=== PATIENT | female | born 1960 | race African-American/Black ===

== ENCOUNTER 2018-02-28 14:42 | Emergency (ER) | payer OTHER, SELFPAY ==
[2018-02-28 14:43] VITALS: BP 159/56; PULSE 79; RESP 18; TEMP 36.8; O2SAT 98; BMI 38.2
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
[2018-02-28] MEDS: HYDROcodone Bitartrate/Apap 5/325 Tablet PO (15:54)
[2018-02-28 15:57] VITALS: O2SAT 99
[2018-02-28 16:02] VITALS: BP 155/100; PULSE 87; RESP 16; O2SAT 100
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
[2018-02-28 17:02] VITALS: BP 134/62; PULSE 82; RESP 15; O2SAT 96
== END 2018-02-28 17:03 | disposition home or self-care (01) ==
PROVIDERS: Emergency Provider Emergency Medicine; Family Provider Student in an Organized Health Care Education/Training Program; PCP Student in an Organized Health Care Education/Training Program
DX: T14.8XXA Other injury of unspecified body region, initial encounter (principal); V89.2XXA Person injured in unspecified motor-vehicle accident, traffic, initial encounter; Y93.89 Activity, other specified; Y92.410 Unspecified street and highway as the place of occurrence of the external cause; I10 Essential (primary) hypertension; E78.00 Pure hypercholesterolemia, unspecified; E03.9 Hypothyroidism, unspecified; E11.9 Type 2 diabetes mellitus without complications; Z79.84 Long term (current) use of oral hypoglycemic drugs; Z79.899 Other long term (current) drug therapy
CPT/HCPCS: 71101; 73030; 73502; 99283

== ENCOUNTER → 2018-04-17 16:26 | Outpatient (CLI) | payer OTHER, SELFPAY ==
--- NOTE | 2018-04-16 | ASPS_PTH ---
PATIENT: RAKAN CHIN LOC: [facility] U#:[id number] AGE/SX: 65/F ROOM: RE04/17/[address]: Dr. Alison Chaves MD : [id number] BED: DIS: SPEC #: [id number] RECD: 04/17/18 10:55 STATUS: MAI REShanta #: [id number] CHEL: 04/16/18 00:[address]: Alison Chaves DEPT: CYTOLOGY RECD BY: Catracho Porter ENTERED: 04/23/18 10:56 SP TYPE: ASPIRATION OTHR DR: Dr. Christian Bowles, DO Tissues: Left breast, NOS Procedures: Special Stain Group II Surgery Specimen Level IV Cytology Other HEADER OPERATION: Ultrasound-guided fine needle aspiration of left breast lesion PRE-OP DIAGNOSIS: Abnormal mammogram/ultrasound TISSUE SUBMITTED: FNA left breast lesion DIAGNOSIS CYTOLOGY Left breast lesion, ultrasound-guided FNA (cytospin and cell block): Negative for malignant cells. Consistent with fibrocystic changes. SHAQ:christiano 04/23/18 COMMENT Correlation with clinical, radiologic findings and appropriate follow up are necessary. CYTOLOGY STUDY Slides are reviewed. The cell block is acellular. Cytospin smears entirely consist of apocrine metaplastic cells. CYTOLOGY GROSS Received is 40 ml of cloudy fluid labeled with the patient's name and and designated per the requisition as left breast FNA. Submitted for cytology preparation including cell block. 04/20/18 TC:5 CPT: 21293, 34397
== END ==
PROVIDERS: Family Provider Student in an Organized Health Care Education/Training Program; PCP Student in an Organized Health Care Education/Training Program; Visit Provider Surgery
DX: R92.8 Other abnormal and inconclusive findings on diagnostic imaging of breast (principal); N64.89 Other specified disorders of breast
CPT/HCPCS: 88161; 88305; 88313

== ENCOUNTER 2018-07-15 17:01 | Emergency (ER) | payer OTHER, SELFPAY ==
[2018-07-15 17:02] VITALS: BP 165/82; PULSE 78; RESP 16; TEMP 36.6; O2SAT 99; BMI 35.6
[2018-07-15 17:20] LABS: Bedside Glucose 407 mg/dL (70-110)
[2018-07-15] MEDS: Morphine 4 MG/ML Syringe IV (17:49)
[2018-07-15] MEDS: Ondansetron 4 MG/2 ML Vial IV (17:49)
[2018-07-15] MEDS: 0.9% Normal Saline 1,000 ML 999 ML IV (17:50)
[2018-07-15 17:57] LABS: Absolute Lymphocyte Count 3.28 X10^3/ul (0.83-4.51); Absolute Neutrophil Count 2.6 X10^3/uL (2.0-7.7); Basophil# 0.01 X10^3/uL; Basophil% 0.1 % (0-1); Eosinophil# 0.17 X10^3/uL; Eosinophils% 2.5 % (0-5); Hematocrit 39.7 % (37-47); Hemoglobin 13.8 g/dl (12.0-15.0); Lymphocyte # 3.28 X10^3/ul (4.0); Mean Corp Hgb Conc 34.8 g/gl (32-36); Mean Corpuscular Hgb 29.3 pg (27.0-32.0); Mean Corpuscular Volume 84.3 fL (81-99); Mean Platelet Vol. 9.6 fl (6.2-12.0); Monocyte# 0.58 X10^3/uL; Monocyte% 8.7 % (0-10); Neutrophil # 2.64 X10^3/uL (2.7-7.7); Neutrophil % 39.6 % (47-70); POSITIVE COUNT NO; POSITIVE DIFFERENTIAL NO; POSITIVE MORPHOLOGY NO; Platelet Count 277 K/mm3 (150-450); RBC Distribution Width CV 11.8 % (11.6-14.6); RBC Distribution Width SD 35.6 fl (35.1-43.9); Red Blood Count 4.71 M/mm3 (4.2-5.4); White Blood Count 6.7 K/mm3 (4.4-11.0)
[2018-07-15 18:05] LABS: Bedside Glucose 401 mg/dL (70-110)
[2018-07-15 18:15] LABS: AST(SGOT) 41 U/L (15-37); Alanine Aminotransfer ALT/SGPT 52 U/L (13-56); Albumin, Serum 3.4 g/dL (3.2-5.0); Alkaline Phosphatase 103 U/L (45-117); Anion Gap 13 (5-15); BUN 11 mg/dL (7-18); BUN/Creat Ratio 11.2 RATIO (10-20); Bilirubin, Direct 0.11 mg/dL (0.00-0.30); Calcium,Total 9.2 mg/dL (8.5-10.1); Chloride 99 mmol/L (98-107); Creatinine, Serum 0.98 mg/dL (0.55-1.02); EST Glomerular Filtration Rate 62 mL/min (>60); Est Glom Filt Rate - Afr Amer 76 mL/min (>60); Globulin 4.3 g/dL (2.2-4.2); Glucose 412 mg/dL (74-106); Lipase 278 U/L (73-393); Potassium 3.4 mmol/L (3.5-5.1); Protein, Total 7.7 g/dL (6.4-8.2); Sodium Level 134 mmol/L (136-145)
[2018-07-15 18:17] LABS: Hemoglobin A1c 13.2 % (4.2-6.3)
[2018-07-15 18:35] LABS: Anion Gap 13 (5-15); BUN 11 mg/dL (7-18); BUN/Creat Ratio 11.4 RATIO (10-20); Calcium,Total 9.2 mg/dL (8.5-10.1); Chloride 99 mmol/L (98-107); Creatinine, Serum 0.97 mg/dL (0.55-1.02); EST Glomerular Filtration Rate 63 mL/min (>60); Est Glom Filt Rate - Afr Amer 76 mL/min (>60); Estimated Creatinine Clearance 51.22 ml/min; Glucose 408 mg/dL (74-106); Potassium 3.4 mmol/L (3.5-5.1); Sodium Level 134 mmol/L (136-145)
[2018-07-15 18:38] VITALS: BP 117/68; PULSE 58
[2018-07-15 19:36] VITALS: PULSE 56; RESP 15; O2SAT 100
[2018-07-15 19:36] LABS: Bacteria 0 SEEN /hpf (None Seen); Mucous, Urine 0 SEEN /hpf (<or=2+); Squamous Epithelial Cells - UA 0 SEEN /hpf (5-10)
[2018-07-15 19:37] LABS: Color, Urine Yellow (Yellow); Glucose, Dipstick 1000 mg/dl (Normal); Ketone-Dipstick 50 mg/dl (Negative); Leukocyte Esterase-Dipstick 100 /ul (Negative); Nitrite-Dipstick Negative (Negative); Occult Blood-Urine Negative /ul (Negative); Protein-Dipstick Negative (Negative); Urine Bilirubin Dipstick Negative (Negative); Urine Clarity Clear (Clear); Urine Urobilinogen Normal (Normal)
[2018-07-15] MEDS: Acetaminophen 500 MG Tablet 1000 MG PO (20:11)
[2018-07-15 20:35] LABS: Red Blood Cells-Urine 0-5 SEEN /hpf (0-5); White Blood Cells 0-5 SEEN /hpf (0-5)
--- NOTE | 2018-07-15 20:40 | ED.DCSUM_ITS ---
- ER Visit Summary Date of Service: 07/15/18 Chief Complaint: Elevated blood sugar History of Present Illness: The patient is a [address] Rios. She reports that she has a history of type 2 diabetes but thinks she had been good for a couple years and then her sugar began to increase again. States that she has had polyuria, polydipsia, and a 15 pound weight loss. She saw Dr. Rios and begin metformin again this morning. Patient reports that she has an aching upper abdominal pain that is 6 out of 10 severity. She has had nausea without any vomiting. She has had 3 episodes of diarrhea today. No blood in her stools or black tarry stools. Physical Examination: Vitals: Stable. Afebrile. General: Well-nourished and well-developed. Head: Normocephalic atraumatic. Neck: Supple, no lymphadenopathy. No JVD. Nontender. Cardiovascular: Regular rate and rhythm. No murmurs. Respiratory: No respiratory distress. Clear to auscultation bilaterally. Abdominal: Soft, mild right upper quadrant, epigastric, and left upper quadrant tenderness palpation, nondistended, normal bowel sounds. No guarding, rebound, or peritoneal signs. Back: Nontender. Extremities: Nontender, no edema. Skin: Normal color, no rash. Neurologic: Alert and oriented ?3. Cranial nerves II through XII are intact. Normal strength and sensation. Psych: Normal affect. Test Results: CBC is remarkable for segment neutrophils of 40 in the facets of 49. Chem-7 is marked for sodium 134 however this is 141 when corrected for glucose of 412, potassium 3.4. LFTs marked for globulin 4.3 and AST of 41. Lipase is normal. Serum ketones are negative. UA is negative. Hemoglobin A1c is 13.2 meaning that on average her blood sugars been 326 for the past 3 months. Emergency Department Course and Treatment: Patient was treated the dose of morphine, Zofran, and Tylenol. She is given 2 L normal saline. She is resting comfortably. She has had no vomiting or diarrhea while here. Treatment Plan: Patient be discharged with Zofran. Instructed continue her metformin. Follow-up Dr. Rios in 1-2 days if not improving. Return to the emergency department for any worsening symptoms. Disposition: To home in improved and stable condition. Impression: 1. Abdominal pain, uncertain cause. 2. Hyperglycemia with oqn-[id number] diabetes mellitus. This note was generated with [employer] dictation software. It may contain incorrect words, spelling, and punctuation that were not noted in review of the chart prior to signing ED Disposition - Plan for ED Patient: Disposition: Home or Assisted Living Chief Complaint: Hyperglycemia Instructions: ED Abdominal Pain Unkn Cause Prescriptions: Ondansetron [Zofran Odt] 4 mg PO Q8H PRN PRN #10 tablet PRN Reason: Nausea Referrals: Christian Bowles DO [Primary Care Provider] - 1-2 Days if not improving
[2018-07-15 20:50] VITALS: BP 127/77; BP 133/75; PULSE 59; PULSE 63; RESP 16; RESP 18; O2SAT 97
== END 2018-07-15 20:52 | disposition home or self-care (01) ==
PROVIDERS: Emergency Provider Emergency Medicine; Family Provider Student in an Organized Health Care Education/Training Program; PCP Student in an Organized Health Care Education/Training Program
DX: E11.65 Type 2 diabetes mellitus with hyperglycemia (principal); R10.11 Right upper quadrant pain; R10.12 Left upper quadrant pain; R10.13 Epigastric pain; I10 Essential (primary) hypertension; E78.00 Pure hypercholesterolemia, unspecified; E03.9 Hypothyroidism, unspecified; Z79.84 Long term (current) use of oral hypoglycemic drugs; Z79.899 Other long term (current) drug therapy
CPT/HCPCS: 80048; 80076; 81001; 82009; 82962; 83036; 83690; 85025; 96361; 96374; 96375; 99285; J7030; A4216; J2405

== ENCOUNTER 2018-08-27 12:50 | Emergency (ER) | payer OTHER, SELFPAY ==
[2018-08-27 12:52] VITALS: BP 167/90; PULSE 71; RESP 20; TEMP 35.7; O2SAT 99; BMI 39.2
--- NOTE | 2018-08-27 15:08 | ED.VISSUMM ---
- ER Visit Summary Date of Service: 08/27/18 Chief Complaint: Right jaw pain History of Present Illness: The patient is a 58 F presents to the emergency department with right-sided jaw pain. The patient symptoms began about 3 days ago. She states she had a dull ache in her upper jaw. It was not made worse when she would chew. She states that she felt better when she would hold cold water in her mouth. Over the past 24 hours, the pain is worsened. She describes some swelling and tenderness below her jaw. She denies any trouble speaking or swallowing. She went to urgent care and was referred here. She has not seen a dentist in some time. Physical Examination: Exam is relatively unremarkable. Patient is afebrile. She is well-appearing. She has no trismus or stridor. Posterior oropharynx is widely patent. This omental space is soft. The patient does have tenderness over the submandibular gland. There is widespread dental disease, but no focal abscess. She also has some tender cervical adenopathy. Rest of exam is unremarkable. Test Results: [] Emergency Department Course and Treatment: The patient has a patent Stensen's duct. Her submental space is soft. Clinically, I do feel that this may be sialoadenitis given the progression of her symptoms. I do not suspect a dangerous process. There is no evidence of Cristi angina. The patient was started on clindamycin and analgesics. She will follow-up with dentistry or return with any worsening symptoms in the next 24-48 hours. Treatment Plan: [] Disposition: Discharge Impression: 1. Cervical adenitis 2. Sialoadenitis This note was generated with [employer] dictation software. It may contain incorrect words, spelling, and punctuation that were not noted in review of the chart prior to signing ED Disposition - Plan for ED Patient: Chief Complaint: Other, Pain/Inj Instructions: ED Cervical Adenitis Abx Tx Prescriptions: Hydrocodone Bitart/Apap 5-325 [[place] 5MG-325MG] 1 tab PO Q6H PRN PRN 3 Days #10 tab PRN Reason: Pain Clindamycin [Cleocin] 300 mg PO 4X/DAY #80 cap Referrals: Christian Bowles DO [Primary Care Provider] -
--- NOTE | 2018-08-27 15:12 | ED.DCSUM_ITS ---
- ER Visit Summary Date of Service: 08/27/18 Chief Complaint: Right jaw pain History of Present Illness: The patient is a 58 F presents to the emergency department with right-sided jaw pain. The patient symptoms began about 3 days ago. She states she had a dull ache in her upper jaw. It was not made worse when she would chew. She states that she felt better when she would hold cold water in her mouth. Over the past 24 hours, the pain is worsened. She describes some swelling and tenderness below her jaw. She denies any trouble speaking or swallowing. She went to urgent care and was referred here. She has not seen a dentist in some time. Physical Examination: Exam is relatively unremarkable. Patient is afebrile. She is well-appearing. She has no trismus or stridor. Posterior oropharynx is widely patent. This omental space is soft. The patient does have tenderness over the submandibular gland. There is widespread dental disease, but no focal abscess. She also has some tender cervical adenopathy. Rest of exam is unremarkable. Test Results: [] Emergency Department Course and Treatment: The patient has a patent Stensen's duct. Her submental space is soft. Clinically, I do feel that this may be sialoadenitis given the progression of her symptoms. I do not suspect a dangerous process. There is no evidence of Cristi angina. The patient was started on clindamycin and analgesics. She will follow-up with dentistry or return with any worsening symptoms in the next 24-48 hours. Treatment Plan: [] Disposition: Discharge Impression: 1. Cervical adenitis 2. Sialoadenitis This note was generated with [employer] dictation software. It may contain incorrect words, spelling, and punctuation that were not noted in review of the chart prior to signing ED Disposition - Plan for ED Patient: Chief Complaint: Other, Pain/Inj Instructions: ED Cervical Adenitis Abx Tx Prescriptions: Hydrocodone Bitart/Apap 5-325 [[place] 5MG-325MG] 1 tab PO Q6H PRN PRN 3 Days #10 tab PRN Reason: Pain Clindamycin [Cleocin] 300 mg PO 4X/DAY #80 cap Referrals: Christian Bowles DO [Primary Care Provider] -
[2018-08-27] MEDS: Clindamycin HCl 150 MG Capsule 450 MG PO (15:18)
[2018-08-27] MEDS: HYDROcodone Bitartrate/Apap 5/325 Tablet PO (15:18)
[2018-08-27 15:25] VITALS: BP 156/92; PULSE 66; RESP 18; O2SAT 98
== END 2018-08-27 15:25 | disposition home or self-care (01) ==
LOC: ED 15:14
PROVIDERS: Emergency Provider Emergency Medicine; Family Provider Student in an Organized Health Care Education/Training Program; PCP Student in an Organized Health Care Education/Training Program
DX: L04.0 Acute lymphadenitis of face, head and neck (principal); K11.21 Acute sialoadenitis; I10 Essential (primary) hypertension; E07.9 Disorder of thyroid, unspecified; Z79.899 Other long term (current) drug therapy
CPT/HCPCS: 99282

== ENCOUNTER → 2019-03-25 20:25 | Outpatient (CLI) | payer OTHER, SELFPAY | PROVIDERS: Family Provider Student in an Organized Health Care Education/Training Program; PCP Student in an Organized Health Care Education/Training Program | DX: G47.33 Obstructive sleep apnea (adult) (pediatric) (principal) | CPT/HCPCS: 95811 ==

== ENCOUNTER 2020-10-25 09:18 | Emergency (ER) | payer OTHER, SELFPAY ==
[2020-10-25 09:19] VITALS: BP 142/76; PULSE 95; RESP 18; TEMP 39.1; O2SAT 89; BMI 35.4
[2020-10-25 09:22] VITALS: BP 142/76; PULSE 97; RESP 24; TEMP 39.1; O2SAT 96
[2020-10-25 09:25] VITALS: O2SAT 97
--- NOTE | 2020-10-25 09:37 | EKG12_ITS ---
Test Reason : SOB Blood Pressure : / mmHG Vent. Rate : 086 BPM Atrial Rate : 086 BPM P-R Int : 132 ms QRS Dur : 084 ms QT Int : 384 ms P-R-T Axes : 023 -13 -10 degrees QTc Int : 459 ms Normal sinus rhythm Possible Left atrial enlargement Left ventricular hypertrophy Abnormal ECG Confirmed by VICENTE VILLEGAS, SUZANNA ([id number]), news video editor AMY ANTHONY ([id number]) on 10/27/2020 2:01:53 PM Referred By: HERRERA Confirmed By:SUZANNA ZHANG MD
--- NOTE | 2020-10-25 09:38 | ED.VIS.DYS ---
History of Present Illness Chief Complaint: Shortness of Breath Informant: Patient, EMS Onset: Activity at onset: Exertion, Light Activity Timing: Intermittent Quality: Dyspnea on exertion, Orthopnea Current Severity: Mild Maximum Severity: Moderate Worsened by: Exertion, Lying flat Relieved by: Oxygen, Rest - and sitting up Associated Symptoms: Chills, Cough - [employer]ER [employer], Fever Chest Pain: None Narrative: 4 days of respiratory symptoms starting with fatigue/malaise, myalgias, fevers and chills, dyspnea with light exertion and orthopnea. No edema/swelling. No chest pain. Some epigastric discomfort and nausea but no vomiting. Mild diarrhea. Patient presents during the national coronavirus emergency declaration/pandemic. She denies any known contact with anyone infected with COVID-19. She denies traveling out of the immediate area recently. - Past Medical History (1) Diabetes mellitus, type II Status: Chronic (2) Hyperlipidemia Status: Chronic (3) Hypertension Status: Chronic (4) Hypothyroidism Status: Chronic Past Medical History - Allergies and Home Meds Allergies/Adverse Reactions: Allergies etodolac [From Lodine] Allergy (Verified 10/25/20 09:26) li me up Penicillins Allergy (Verified 10/25/20 09:26) Itching tramadol Allergy (Verified 10/25/20 09:26) Rash Primary Care Physician: Christian Bowles DO [Primary Care Provider] - Surgical History: - - x 4, appendectomy. Smoking Status: Former smoker - Family History Maternal Family History: Reports: Diabetes, Heart Disease, Hypertension Paternal Family History: Reports: Diabetes, Heart Disease, Hypertension Review of Systems General: Reports: Chills, Fever, Malaise, Subjective. Denies: Sweats Eyes: Denies: Visual changes - bilaterally, Diplopia ENT: Denies: Bilateral ear pain, Rhinorrhea, Sore throat Cardiovascular: Denies: Chest pain, Palpitations Respiratory: Reports: Dyspnea, Cough, Dyspnea on exertion, Orthopnea. Denies: Sputum Gastrointestinal: Reports: Nausea, Diarrhea. Denies: Abdominal pain, Vomiting, Melena, Hematochezia Genitourinary: Denies: Dysuria, Hematuria, Frequency Musculoskeletal: Reports: Myalgias, Back pain - Low back with radiation into left thigh. Denies: Neck pain, Swelling Skin: Denies: Rash, Wounds Neurological: Denies: Headache, Weakness, Numbness Physical Exam Vital Signs/Narrative: Vital Signs Temp Pulse Resp BP Pulse Ox 10/25/20 09:22 102.4 F H 97 24 H 142/76 H 96 10/25/20 09:19 102.4 F H 95 18 142/76 H 89 Inital Vital Signs reviewed: Yes General: Well nourished, Well developed, No Acute Distress Head: Normocephalic, Atraumatic Eyes: Perrl, EOMI ENT: Moist mucous membranes, No rhinorrhea Neck: Supple, Nontender, No lymphadenopathy Cardiovascular: Regular rate, Regular rhythm, No murmurs Respiratory: No distress, Chest nontender, Rhonchi - Bibasilar. Negative for: Rales, Wheezing Abdomen: Soft, Nontender, Nondistended, Normal bowel sounds Back: Nontender, Normal Inspection. Negative for: CVA tenderness Extremities: Nontender, No edema, - - Negative straight leg raises bilaterally while sitting reclined. Negative for: Calf Tenderness Skin: Normal color, No rash, No Trauma Neurological: Alert, Oriented x3, Cranial nerves II-XII grossly intact, Normal Strength, Normal Sensation Psychological: Normal affect, Normal Mood Diagnostic/Tx/Re-eval Impressions Chest X-Ray 10/25/20 09:55 IMPRESSION: Mild increased markings are seen at the right lung base as well as in the left lower lobe. Follow-up is recommended. Electronically Signed: Austyn Filippo, at 10:20 EST , Service support , 10/25/20 09:55 Chest 1 View (Portable) [RAD] Stat 10/25/20 09:36 Mucosa - Nose SARS-CoV-2 Antigen (Rapid) - Final SARS-CoV-2 (COVID 19) Laboratory Results 10/25/20 10/25/20 10/25/20 09:30 09:30 09:30 WBC 8.1 RBC 4.26 Hgb 12.5 Hct 37.7 MCV 88.5 MCH 29.3 MCHC 33.2 RDW Std Deviation 40.0 RDW Coeff of Mechelle 12.3 Plt Count 363 MPV 9.3 Immature Gran % (Auto) 0.600 Neut % (Auto) 78.8 H Lymph % (Auto) 14.0 L [place] % (Auto) 6.2 Eos % (Auto) 0.2 Baso % (Auto) 0.2 Absolute Neuts (auto) 6.4 Absolute Lymphs (auto) 1.13 Nucleated RBC % 0 Sodium 131 L Potassium 3.6 Chloride 94 L Carbon Dioxide 29.0 Anion Gap 8 BUN 8 Creatinine 0.88 Estim Creat Clear Calc 55.11 Est GFR (MDRD) Af Amer 85 Est GFR (MDRD) Non-Af 70 BUN/Creatinine Ratio 9.1 L Glucose 233 H Lactic Acid 1.8 Calcium 8.9 Total Bilirubin 0.70 AST 55 H ALT 52 Alkaline Phosphatase 74 Troponin I < 0.015 B-Natriuretic Peptide Total Protein 9.0 H Albumin 2.9 L Globulin 6.1 H Albumin/Globulin Ratio 0.5 L 10/25/20 09:30 WBC RBC Hgb Hct MCV MCH MCHC RDW Std Deviation RDW Coeff of Mechelle Plt Count MPV Immature Gran % (Auto) Neut % (Auto) Lymph % (Auto) [place] % (Auto) Eos % (Auto) Baso % (Auto) Absolute Neuts (auto) Absolute Lymphs (auto) Nucleated RBC % Sodium Potassium Chloride Carbon Dioxide Anion Gap BUN Creatinine Estim Creat Clear Calc Est GFR (MDRD) Af Amer Est GFR (MDRD) Non-Af BUN/Creatinine Ratio Glucose Lactic Acid Calcium Total Bilirubin AST ALT Alkaline Phosphatase Troponin I B-Natriuretic Peptide 7.7 Total Protein Albumin Globulin Albumin/Globulin Ratio - Rhythm Strip Rhythm Strip: Sinus Rhythm Rate: 86 Ectopy: None - EKG Initial EKG Interpretation: Sinus Rhythm, No Acute Injury Pattern, Non-Specific ST Changes - high lateral flattening Treatment - Dyspnea: Oxygen, - - tylenol, gi cocktail, zofran, norco for her back Repeat Evaluation: Improved - Medical Decision Making Work-up is consistent with COVID-19 early pneumonia. She desats down to 88-89%, doing well at 96-100% on 2 L nasal cannula. She lives at home with her son, I offered admission, she declines and prefers to go home and since we are able to get her outpatient oxygen from the ER, I think this is reasonable. Since she is a type II diabetic and is not on short acting insulin, we will avoid steroids, but I will place her on empiric azithromycin to cover the possibility of bacterial superinfection and prescribe her albuterol MDI to use as needed. We discussed reasons to return she is comfortable with that plan. ED Disposition - Plan for ED Patient: Disposition: Home or Assisted Living Diagnosis: Pneumonia due to COVID-19 virus, Hypoxemia Instructions: Coronavirus Disease 2019 (COVID-19): Overview, Coronavirus Disease 2019 (COVID-19): Caring for Yourself or Others Prescriptions: Albuterol Inhaler [Ventolin Hfa] 1 - 2 puff INHALATION Q4H PRN PRN #1 inhaler PRN Reason: Wheezing Transmission Status: Pending to [id number] Azithromycin [Zithromax Z-Alejandro] 250 mg PO UD #1 box Transmission Status: Pending to [id number] Referrals: Christian Bowles, [Primary Care Provider] - 1 Week if not improving (or ER)
[2020-10-25 09:47] LABS: Absolute Lymphocyte Count 1.13 X10^3/uL (0.83-4.51); Absolute Neutrophil Count 6.4 X10^3/uL (2.0-7.7); Basophil# 0.02 X10^3/uL; Basophil% 0.2 % (0-1); Eosinophil# 0.02 X10^3/uL; Eosinophils% 0.2 % (0-5); Hematocrit 37.7 % (37-47); Hemoglobin 12.5 g/dL (12.0-15.0); Lymphocyte # 1.13 X10^3/ul (4.0); Mean Corp Hgb Conc 33.2 g/dL (32-36); Mean Corpuscular Hgb 29.3 pg (27.0-32.0); Mean Corpuscular Volume 88.5 fL (81-99); Mean Platelet Vol. 9.3 fl (6.2-12.0); Monocyte% 6.2 % (0-10); NRBC Flagged by Analyzer 0 % (0-5); Neutrophil # 6.38 X10^3/uL (2.7-7.7); Neutrophil % 78.8 % (47-70); Platelet Count 363 K/mm3 (150-450); RBC Distribution Width CV 12.3 % (11.6-14.6); Red Blood Count 4.26 M/mm3 (4.2-5.4); White Blood Count 8.1 K/mm3 (4.4-11.0)
[2020-10-25] MEDS: Acetaminophen 500 MG Tablet 1000 MG PO (09:51)
--- NOTE | 2020-10-25 09:55 | RAD_ITS ---
STUDY: X-RAY CHEST REASON FOR EXAM: Female, 60 years old. SOB AND FATIGUE ONSET FRIDAY TECHNIQUE: Single AP portable view of the chest. COMPARISON: Comparison is made with prior study dated 02/23/2015. FINDINGS: EKG electrodes are seen. Mild increased markings are seen at the right lung base as well as in the left lower lobe. Follow-up is recommended. There is no demonstrated pleural abnormality. Normal size heart. Normal mediastinum and raphael. Normal visualized pulmonary arteries. There is atherosclerotic tortuosity of the aortic arch and descending thoracic aorta. Normal visualized thoracic spine. Normal visualized ribs, clavicles, and shoulders. There is no demonstrated abnormality of the visualized soft tissue structures of the upper abdomen. RAD/Chest 1 View (Portable) IMPRESSION: Mild increased markings are seen at the right lung base as well as in the left lower lobe. Follow-up is recommended. Electronically Signed: Austyn Barkley, at 10:20 EST , Service support ,
[2020-10-25 10:04] LABS: ALB/GLOB Ratio 0.5 RATIO (0.9-2.4); AST(SGOT) 55 U/L (15-37); Alanine Aminotransfer ALT/SGPT 52 U/L (13-56); Albumin, Serum 2.9 g/dL (3.2-5.0); Alkaline Phosphatase 74 U/L (45-117); Anion Gap 8 (5-15); BUN 8 mg/dL (7-18); BUN/Creat Ratio 9.1 RATIO (10-20); Calcium,Total 8.9 mg/dL (8.5-10.1); Chloride 94 mmol/L (98-107); Creatinine, Serum 0.88 mg/dL (0.55-1.02); EST Glomerular Filtration Rate 70 mL/min (>60); Est Glom Filt Rate - Afr Amer 85 mL/min (>60); Estimated Creatinine Clearance 55.11 ml/min; Globulin 6.1 g/dL (2.2-4.2); Glucose 233 mg/dL (74-106); Potassium 3.6 mmol/L (3.5-5.1); Sodium Level 131 mmol/L (136-145)
[2020-10-25 10:07] LABS: BNP,B-Type NATRIURETIC PEPTIDE 7.7 pg/mL (0-100)
[2020-10-25 10:16] LABS: Lactic Acid 1.8 mmol/L (0.4-1.9)
[2020-10-25 11:31] VITALS: BP 123/70; PULSE 78; RESP 27; TEMP 37.7; O2SAT 96
[2020-10-25] MEDS: Ondansetron ODT 4 MG Tablet 8 MG PO (11:55)
[2020-10-25] MEDS: Mag Hydrox/Al Hydrox/Simeth 30 ML UDC PO (11:55)
[2020-10-25] MEDS: HYDROcodone Bitartrate/Apap 5/325 Tablet PO (11:55)
[2020-10-25 12:40] VITALS: BP 118/49; PULSE 79; RESP 15; O2SAT 96
--- NOTE | 2020-10-25 14:11 | ED.RN ---
PT GIVEN OXYGEN FOR HOME, THIS RN AND RESPIRATORY EXPLAINED HOW TO USE OXYGEN TANK AND PULSE OX. PT HAS NO FURTHER QUESTIONS.
--- NOTE | 2020-10-25 15:00 | CM.ED ---
Social Work Emergency Department Received call from hedis manager Bella Hernandez requesting social work assistance on Home O2 setup for a COVID positive patient in the Emergency Department. Presented to the ED and doctor completed the quick script, doctors notes indicating O2 saturations present in the record. Positive COVID test also in record. Called patient in ED room and introduced to self and role. Educated to O2 setup recommendations and that program set up with [employer] for this, if patient is okay with using this company. Patient reports agreement. Educated that insurance will be billed for the oxygen. Patient confirms to live at home and her son lives with the patient. Patient asked about whether would have to quarantine from work. Explained that quarantine does come along with COVID diagnosis, but that patient needs to speak with physician about the length of time. Patient expressed understanding and reports to have a family doctor. Called [employer] at [phone] and alerted to impending referral. Faxed referral information to [phone]. This filing writer obtained pulse ox and O2 portable tank from [facility] in the ED. Provided to the artificial log machine operator who will see that patient gets O2. This filing writer alerted by nursing at 1411 that patient exited the building. Called the local [employer] numbers at [phone], extension [phone]. Alerted to patient's discharge so that home concentrator can be delivered. Placed quick script back on patient's chart. Notified RN AAKASH for [facility] of home O2 set up, for purposes of follow up outreach phone calls. No other services requested or indicated. -KRISTEL Salcido, MANAGER DATA
--- NOTE | 2020-10-26 15:39 | CASEMGMT ---
LAZARA FINN DC PHONE CALL DC DATE: 10/25/2020 DC DISPOSITION: Home from ER with home oxygen DC DIAGNOSIS: SARS COVID 2 Attempted call to phone. No answer and no messaging with name identifier. Will attempt to call tomorrow. Antionette DESAI RN AC
--- NOTE | 2020-10-27 15:06 | CASEMGMT ---
Addendum entered by Jake Philippe 10/28/20 14:35: DC Disposition: home with oxygen Original Note: LAZARA FINN DC PHONE CALL DC DATE: 10/26/2020 DC DISPOSITION: covid DC DIAGNOSIS: SARS COVID 2 Intro role of CM to patient via phone. Patient states she is still feeling weak and short of breath with activity. She states she is wearing 2L NC and pulse ox is staying above 92% even with activity. LAZARA FINN reviewed symptoms to call PCP or return to ER including worsening shortness of breath, oxygen level staying below 90%, nausea, vomiting. Pt states her son is home and able to assist her. -She has not contacted her PCP. LAZARA FINN offered to contact Dr. Bowles's nurse to update on her ER visit and returning home with oxygen. Pt would like AAKASH to notify her PCP. -F/U telephone appointment made with Dr. Bowles's office. Telephone appointment made for Friday, Nov 01 @ 11:30. Call to patient to update and she wrote appointment down. -Patient has supplies needed and is staying at home. -LAZARA FINN let her know I would call again on Friday for f/u. Antionette DESAI RN ACM
--- NOTE | 2020-10-28 14:30 | CASEMGMT ---
LAZARA FINN ED PHONE CALL DC DATE: 10/26/2020 DC DISPOSITION: Home with oxygen DC DIAGNOSIS: SARS COVID 2 Intro role of CM to patient again today. Pt states she is doing better, took a shower this am and her oxygen is staying above 92% with rest and activity. Patient states she is feeling stronger, no questions re: medications and reviewed f/u appointment. LAZARA FINN offered to call Friday and pt is agreeable to this. No further concerns and no questions. Antionette MCADAMSN RN ACM
--- NOTE | 2020-10-30 12:53 | CASEMGMT ---
LAZARA FINN ED PHONE CALL DC DATE: 10/26/2020 DC DISPOSITION: Home with oxygen DC DIAGNOSIS: SARS COVID 2 Call to patient's home. Patient states she is feeling improved and has been wearing her oxygen. Her pulse ox is staying above 90% on 2L NC. No new concerns noted and patient states she is able to get up in am, shower, dress and then rests. Patient has assistance with making meals. Reviewed f/u appointment with her physician on Fri @ 11:20 am via phone. Pt was very appreciative of the calls. LAZARA FINN let her know this was the last call and if any concerns arise, to call her PCP. Antionette DESAI RN ACM
== END 2020-10-25 14:14 | disposition home or self-care (01) ==
PROVIDERS: Emergency Provider Emergency Medicine; PCP Student in an Organized Health Care Education/Training Program
DX: U07.1 COVID-19 (principal); J12.89 Other viral pneumonia; R09.02 Hypoxemia; E78.5 Hyperlipidemia, unspecified; E11.9 Type 2 diabetes mellitus without complications; E03.9 Hypothyroidism, unspecified; Z87.891 Personal history of nicotine dependence; Z79.84 Long term (current) use of oral hypoglycemic drugs
CPT/HCPCS: 71045; 80053; 83605; 83880; 84484; 85025; 87040; 87426; 93005; 99285; A4216

== ENCOUNTER → 2020-12-13 12:35 | Outpatient (CLI) | payer OTHER, SELFPAY ==
[2020-12-13 13:20] LABS: D-Dimer Quantitative (DVT/PE) 0.62 FEU/ug/m (0.27-0.49)
== END ==
LOC: LABSPEC 12:37
PROVIDERS: PCP Student in an Organized Health Care Education/Training Program; Referring Provider Nurse Practitioner Family; Visit Provider Nurse Practitioner Family
DX: R05 Cough (principal); R06.02 Shortness of breath
CPT/HCPCS: 85379

== ENCOUNTER 2020-12-13 13:59 | Emergency (ER) | payer OTHER, SELFPAY ==
[2020-12-13 14:00] VITALS: BP 159/78; PULSE 82; RESP 17; TEMP 36.2; O2SAT 100; BMI 36.6
--- NOTE | 2020-12-13 14:20 | ED.VIS.GEN ---
History of Present Illness Chief Complaint: Shortness of Breath Informant: Patient Narrative: Patient is a 60-year-old female with a past medical history of diabetes who presents to the emergency department for shortness of breath. She was referred to the emergency department by her PCP. She was diagnosed with coronavirus on October 25. She states that she was sent home with oxygen at that time. She has been using this since. She does feel short of breath. She does have mild bilateral chest discomfort anteriorly of the lower chest wall. Her cough has significantly improved. She did have an x-ray and basic lab work performed as an outpatient. She does have a home pulse oximeter and states that she occasionally drops down to 87 but it does improve rapidly. She denies any leg swelling or calf pain. No fevers or chills. She denies any nausea/vomiting or diarrhea. She is a former smoker and quit 8 years ago. She does have a history of asthma but has not required any treatment for this. Past Medical History - Allergies and Home Meds Allergies/Adverse Reactions: Allergies etodolac [From Lodine] Allergy (Verified 12/13/20 14:00) li me up Penicillins Allergy (Verified 12/13/20 14:00) Itching tramadol Allergy (Verified 12/13/20 14:00) Rash Primary Care Physician: Christian Bowles DO [Primary Care Provider] - 2 Days Prior records reviewed: Yes Past Medical History: - - Diabetes Surgical History: - - x 4, appendectomy. Smoking Status: Former smoker - Family History Maternal Family History: Reports: Diabetes, Heart Disease, Hypertension Paternal Family History: Reports: Diabetes, Heart Disease, Hypertension Review of Systems All systems negative except as indicated General: Denies: Chills, Fever, Sweats Eyes: Denies: Visual changes - bilaterally, Diplopia ENT: Denies: Rhinorrhea, Sore throat Cardiovascular: Reports: Chest pain. Denies: Palpitations Respiratory: Reports: Dyspnea, Cough Gastrointestinal: Denies: Abdominal pain, Nausea, Vomiting, Diarrhea Genitourinary: Denies: Dysuria, Hematuria, Frequency Musculoskeletal: Denies: Back pain, Extremity Pain Skin: Denies: Rash, Wounds Neurological: Denies: Headache, Weakness, Numbness Physical Exam Vital Signs/Narrative: Vital Signs Temp Pulse Resp BP Pulse Ox 12/13/20 14:00 97.1 F L 82 17 159/78 H 100 Inital Vital Signs reviewed: Yes General: Well nourished, Well developed, No Acute Distress Head: Normocephalic, Atraumatic Eyes: Perrl, EOMI ENT: Moist mucous membranes, No rhinorrhea Neck: Supple, Nontender Cardiovascular: Regular rate, Regular rhythm, No murmurs Respiratory: No distress, CTA bilaterally, Chest nontender Abdomen: Soft, Nontender, Nondistended, Normal bowel sounds Back: Nontender, Normal Inspection Extremities: Nontender, No edema. Negative for: Calf Tenderness Skin: Normal color, No rash Neurological: Alert, Oriented x3, Cranial nerves II-XII grossly intact, Normal Strength, Normal Sensation Psychological: Normal affect, Normal Mood Diagnostic/Tx/Re-eval Chest X-Ray - ED: - - Single view portable x-ray interpreted by myself. Clear lung arias bilaterally. No pleural effusions. Normal cardiac silhouette. Normal mediastinum. Agree with radiologist interpretation. - EKG Initial EKG Interpretation: - - Rate of 76 bpm and normal sinus rhythm. Normal intervals. Left axis deviation. T wave inversions in inferior as well as anterior lateral leads. Reviewing her previous EKG this is similar in appearance. No significant ST elevations or depressions. - Medical Decision Making Patient presents to the emergency department for continued dyspnea despite being almost 2 months out from her coronavirus infection. Upon arrival to the emergency department she is on room air and satting 100%. She is not tachycardic with this. She has no increased work of breathing. She has clear lung arias bilaterally on exam. Patient had an elevated D-dimer performed as an outpatient so CTA was performed. This did show the groundglass opacities consistent with Covid infection but no evidence of pulmonary embolism. The rest of her lab work did not reveal a significant acute abnormality. She has been stable throughout ED stay. Given her negative work-up I believe that she is suffering from long-hauler syndrome. Her troponin is negative. It has been going on for a long time since her Covid symptoms. I do not feel this is ACS. She has been satting well without the oxygen and she is only using it for comfort. Feel she can titrate herself off of this but needs to be in contact with her PCP for this. Return precautions are reviewed with the patient. She is to take ibuprofen and Tylenol for her chest discomfort otherwise. She understands and is agreeable this plan. Discharged home in stable condition. All questions were answered. ED Disposition - Plan for ED Patient: Disposition: Home or Assisted Living Diagnosis: Chest wall pain, Dyspnea Instructions: ED Chest Pain, Uncertain Cause, ED Dyspnea Referrals: Christian Bowles DO [Primary Care Provider] - 2 Days
--- NOTE | 2020-12-13 14:25 | EKG12_ITS ---
Test Reason : SOB Blood Pressure : / mmHG Vent. Rate : 076 BPM Atrial Rate : 076 BPM P-R Int : 132 ms QRS Dur : 084 ms QT Int : 412 ms P-R-T Axes : 026 -11 -18 degrees QTc Int : 463 ms Normal sinus rhythm Voltage criteria for left ventricular hypertrophy T wave abnormality, consider anterior ischemia Prolonged QT Abnormal ECG Confirmed by MISHEL VILLEGAS, BARRETT ([id number]), editor producer AMY ANTHONY ([id number]) on 12/18/2020 11:13:09 AM Referred By: MARILYN Confirmed By:CRYSTAL FLORENTINO MD
--- NOTE | 2020-12-13 14:55 | RAD_ITS ---
STUDY: X-RAY CHEST REASON FOR EXAM: Female, 60 years old. PT SENT IN BY PCP FOR CONTINUED SOB, CONCERNED FOR BLOOD CLOT. TESTED POSITIVE FOR COVID ON 10/25/20 TECHNIQUE: Single AP portable view of the chest. COMPARISON: Comparison is made with prior study dated 10/25/2020. FINDINGS: EKG electrodes are seen. The lungs are clear and expanded. There is no demonstrated pleural abnormality. Normal size heart. Normal mediastinum and raphael. Normal visualized pulmonary arteries. There is atherosclerotic tortuosity of the aortic arch and descending thoracic aorta. There are mild degenerative changes of the visualized thoracic spine. Normal visualized ribs, clavicles, and shoulders. There is no demonstrated abnormality of the visualized soft tissue structures of the upper abdomen. RAD/Chest 1 View (Portable) IMPRESSION: Normal x-ray examination of the chest. Electronically Signed: Austyn Barkley MD at 15:09 EST , Service support ,
--- NOTE | 2020-12-13 14:57 | ED.RN ---
UNSUCCESSFUL IV ATTEMPTS X3. LABS SENT.
--- NOTE | 2020-12-13 15:17 | NURSING ---
PER [facility], NEEDS TO REDRAW PURPLE, GREEN AND BLUE
--- NOTE | 2020-12-13 16:13 | CT_ITS ---
STUDY: CTA CHEST REASON FOR EXAM: Female, 60 years old. ELEVATED D-DIMER, SOB, HX COVID RADIATION DOSAGE (If Supplied By Facility): CTDIvol = ( 10.03 ) mGy, DLP = ( 380.56 ) mGycm TECHNIQUE: The examination was performed with the intravenous administration of 100mL Isovue-370. Post-processing of the angiographic images was performed, with multiplanar reformation and 3D reconstruction. Individualized dose optimization techniques were used for this CT. COMPARISON: Chest x-ray FINDINGS: Normal enhancement of the main pulmonary artery and right and left pulmonary arteries. Normal enhancement of the bilateral peripheral pulmonary arteries. There is no demonstrated pulmonary embolism. There is atherosclerotic calcification of the aortic arch with tortuosity. There is no demonstrated aortic dissection. There are calcifications of the coronary arteries. Normal mediastinum. Normal hilar regions. Normal visualized trachea and bronchi. The lungs are well expanded. There is emphysema of the lungs. There are mild interstitial septal and ground glass opacities of the lungs. Normal pleura. Normal chest wall structures. There are degenerative changes of thoracic spine. Normal visualized upper abdomen. CT/CTA Chest W/WO Contrast IMPRESSION: CTA chest examination, without a demonstrated pulmonary embolism or arterial dissection. Emphysema. Bilateral pneumonia. Electronically Signed: Pavel Santana MD at 17:26 EST , Service support ,
[2020-12-13 16:25] LABS: Absolute Neutrophil Count 2.4 X10^3/uL (2.0-7.7); Basophil# 0.01 X10^3/uL; Basophil% 0.2 % (0-1); Eosinophils% 1.8 % (0-5); Hematocrit 37.2 % (37-47); Hemoglobin 12.2 g/dL (12.0-15.0); Lymphocyte % 44.1 % (19-41); Mean Corp Hgb Conc 32.8 g/dL (32-36); Mean Corpuscular Hgb 29.5 pg (27.0-32.0); Mean Corpuscular Volume 90.1 fL (81-99); Monocyte# 0.53 X10^3/uL; Monocyte% 9.7 % (0-10); NRBC Flagged by Analyzer 0 % (0-5); Neutrophil # 2.38 X10^3/uL (2.7-7.7); Neutrophil % 43.8 % (47-70); Platelet Count 275 K/mm3 (150-450); RBC Distribution Width CV 13.5 % (11.6-14.6); RBC Distribution Width SD 44.1 fl (35.1-43.9); Red Blood Count 4.13 M/mm3 (4.2-5.4); White Blood Count 5.4 K/mm3 (4.4-11.0)
[2020-12-13 16:39] VITALS: PULSE 65; RESP 18; O2SAT 100
[2020-12-13] MEDS: Acetaminophen 325 MG Tablet 650 MG PO (16:41)
[2020-12-13 16:46] LABS: Anion Gap 8 (5-15); BUN 7 mg/dL (7-18); BUN/Creat Ratio 7.9 RATIO (10-20); Calcium,Total 8.9 mg/dL (8.5-10.1); Chloride 105 mmol/L (98-107); Creatinine, Serum 0.89 mg/dL (0.55-1.02); EST Glomerular Filtration Rate 69 mL/min (>60); Est Glom Filt Rate - Afr Amer 84 mL/min (>60); Estimated Creatinine Clearance 54.49 ml/min; Glucose 289 mg/dL (74-106); Potassium 4.6 mmol/L (3.5-5.1); Sodium Level 136 mmol/L (136-145)
[2020-12-13] MEDS: Ketorolac 15 MG/ML Vial IV (18:09)
[2020-12-13 18:14] VITALS: BP 137/78; PULSE 67; RESP 16
--- NOTE | 2020-12-13 18:14 | ED.RN ---
IV DC'ED, CATHETER INTACT, SMALL GAUZE DRESSING PLACED. DISCHARGE INSTRUCTIONS GIVEN TO AND REVIEWED WITH PATIENT, PATIENT DENIES QUESTIONS OR CONCERNS AND VOICES UNDERSTANDING OF DISCHARGE INSTRUCTIONS. PT AMBULATES OUT OF ROOM WITHOUT DIFFICULTY.
== END 2020-12-13 18:15 | disposition home or self-care (01) ==
PROVIDERS: Emergency Provider Emergency Medicine; PCP Student in an Organized Health Care Education/Training Program
DX: R07.89 Other chest pain (principal); R06.00 Dyspnea, unspecified; J45.909 Unspecified asthma, uncomplicated; E11.9 Type 2 diabetes mellitus without complications; Z87.891 Personal history of nicotine dependence; Z79.84 Long term (current) use of oral hypoglycemic drugs
CPT/HCPCS: 71045; 71275; 80048; 84484; 85025; 93005; 96374; 99285; Q9967; A4216

== ENCOUNTER 2022-02-20 00:50 | Emergency (ER) | payer OTHER, SELFPAY ==
[2022-02-20 00:51] VITALS: BP 149/74; PULSE 70; RESP 18; TEMP 36.8; O2SAT 100; BMI 38.5
--- NOTE | 2022-02-20 01:10 | RAD_ITS ---
INDICATION: pain EXAMINATION/TECHNIQUE: X-RAY - XR Spine Lumbar 2 or 3 Views 3 IMAGES COMPARISON: None. LIMITATIONS: None. FINDINGS: Vertebral bodies are normal height. No definite fracture demonstrated. Minimal anterolisthesis at L4-5. Degenerative changes at the facet joints at the lower levels, especially L4-5 and L5-S1. No paravertebral soft tissue mass identified. IMPRESSION: Degenerative changes with minimal anterolisthesis at L4-5. No evidence of fracture or traumatic subluxation. Electronically Signed: Geeta Hernández MD at 2:17 EDT , RAD/Lumbar Spine 2 or 3 Views
--- NOTE | 2022-02-20 01:16 | EX.ED.DYSGE1 ---
HPI History of Present Illness Chief Complaint: Back Narrative Narrative: Patient is a 62-year-old female with past medical history of back pain. She reports she takes [employer] for this. She states yesterday she was at work and she was lifting one of the plastic rolls off a machine when the machine jerked which caused her to twist as well. She states that she has some pain in her low back at that time but was able to finish her job. She states today she was bending down to get a plastic roll to load and when she did this she developed pain in her right low back. She denies any loss of bowel or bladder control. She denies any IV drug use. She denies any hematuria or dysuria but states that her pain is to the point where it is difficult to walk and therefore comes in for evaluation. [facility] Medical History Diabetes HTN (hypertension) Home Medications levothyroxine 137 mcg PO DAILY 12/07/15 [History Last Taken Unknown] metformin 850 mg PO BIDCM 12/07/15 [History Last Taken Unknown] fluoxetine 20 mg PO DAILY 07/15/18 [History Last Taken Unknown] simvastatin 20 mg PO DAILY 07/15/18 [History Last Taken Unknown] Oxygen, Home [Home Oxygen] 2 lpm NASAL CONT #1 unit 10/25/20 [Rx Last Taken Unknown] albuterol sulfate 1 - 2 puff INHALATION Q4H PRN PRN #1 inhaler 10/25/20 [Rx Last Taken Unknown] dulaglutide [Trulicity] 4.5 mg SUBCUT QWEEK 02/20/22 [History Last Taken Unknown] hydrocodone-acetaminophen 1 tab PO QHS 02/20/22 [History Last Taken Unknown] methocarbamol 1,000 mg PO 4X/DAY PRN PRN #56 tab 02/20/22 [Rx Last Taken Unknown] methylprednisolone [Methylpred DP] 4 mg PO DAILY #21 tab 02/20/22 [Rx Last Taken Unknown] Allergy/AdvReac Type Severity Reaction Status Date / Time etodolac [From [facility]] Allergy li me Verified 02/20/22 00:55 up Penicillins Allergy Itching Verified 02/20/22 00:55 tramadol Allergy Rash Verified 02/20/22 00:55 Surgical History no surgical history Social History Smoking Status: Former smoker ROS ROS ED Constitutional Constitutional ED: Denies chills or fever(s) ENT ENT ED: Denies sore throat Cardiovascular Cardiovascular: Denies chest pain Respiratory/Chest Respiratory/Chest: Denies cough or dyspnea Gastrointestinal Gastrointestinal: Denies abdominal pain, diarrhea, nausea or vomiting Genitourinary Genitourinary ED: Denies dysuria or hematuria Musculoskeletal Musculoskeletal: Reports back pain; Denies myalgias Integumentary Denies rash Neurologic Neurologic: Denies headache(s) or paresthesias Hematologic/Lymphatic Hematologic/Lymphatic: Denies easy bleeding or easy bruising EXAM Physical Exam Const Vital Signs: 02/20/22 00:51 02/20/22 06:52 Temperature 98.3 F Temperature Source Oral Pulse Rate 70 81 Respiratory Rate 18 18 Blood Pressure 149/74 H 139/68 H Blood Pressure Mean 99 Pulse Ox 100 94 Oxygen Delivery Method Room Air Positive well nourished and well developed General Appearance ED: well developed Eyes PERRL and EOMs intact bilaterally Neck supple Resp normal respiratory effort and clear to auscultation bilaterally Cardio regular rate and regular rhythm Rate: other Other Details: Radial pulses are +2-4 bilaterally are equal and symmetric GI non-tender and non-distended GI Narrative: No voluntary guarding or rigidity no pulsatile mass or fluid wave. Bowel sounds are hypoactive Palpation: soft Back/Spine Back/Spine Narrative: No bony deformity or step-off of the thoracic or lumbar spine no midline pain on palpation. There is right paralumbar tension and spasm noted with pain with palpation at this region that worsens with motion. Negative straight leg raise. No clonus or Babinski. No saddle anesthesia. Patellar reflexes are plus 2 out of 4 bilaterally Extremity normal to inspection Neuro oriented x3 and CN's II-XII intact bilaterally Sensorium / Orientation: alert Psych mental status grossly normal Skin no rashes or lesions noted Skin Narrative: No overlying soft tissue changes to suggest trauma or infection MDM MDM MDM Narrative Medical decision making narrative: Patient presented to the ER with report of back pain that occurred after bending down to pick something up at work this evening. She denied any loss of bowel or bladder control or IV drug use. By exam she had no signs of neurologic impingement and her pain was more paralumbar than midline but because of the worsening symptoms I did elect to perform an x-ray. X-ray revealed degenerative changes without acute finding. Despite being medicated with Norflex and Dilaudid patient still had severe pain and could not ambulate. Therefore patient was given another dose of Dilaudid and a CT was obtained. CT revealed similar findings to the x-ray without fracture or herniation or nerve impingement. On reevaluation the patient reports that she still has some pain but feels much improved and does believe she will be able to control her symptoms at home and therefore she will be discharged at this time. Radiography Diagnostic Testing: Clinical Impression(s) from Imaging Studies Lumbar Spine X-Ray 02/20/22 01:[address] 02/20/22 04:26 Discharge Plan Triage Chief Complaint: Back ED Provider: Abdi Cronin Dx/Rx/DC Orders Clinical Impression: Acute lumbosacral myofascial strain, Hypertension Instructions: ED Back Sprain/Strain Prescriptions: New methylprednisolone [Methylpred DP] 4 mg tablets,dose pack 4 mg PO DAILY Qty: 21 RF: 0 methocarbamol 500 mg tablet 1,000 mg PO 4X/DAY PRN PRN (Reason: Muscle pain/spasm) Qty: 56 RF: 0 No Action metformin 850 MG tablet 850 mg PO BIDCM RF: 0 levothyroxine 112 MCG tablet 137 mcg PO DAILY RF: 0 simvastatin 20 tablet 20 mg PO DAILY RF: 0 fluoxetine 20 MG capsule 20 mg PO DAILY RF: 0 albuterol sulfate 1 INHALER inhaler 1 - 2 puff INHALATION Q4H PRN PRN (Reason: Wheezing) Qty: 1 RF: 0 Oxygen, Home [Home Oxygen] 2 lpm NASAL CONT Qty: 1 RF: 0 hydrocodone-acetaminophen 5-325 mg tablet 1 tab PO QHS RF: 0 Trulicity 4.5 mg/0.5 mL pen injector 4.5 mg SUBCUT QWEEK RF: 0 Primary Care Provider: Christian Bowles Referrals: Christian Bowles DO [Primary Care Provider] - Activity Restrictions/Additional Instructions: Please continue to stretch and heat your back to help reduce pain and speed healing and follow-up with Workmen's Comp. for repeat evaluation or return to the ER should you have any further concerns Disposition Disposition: Home, Self Care Discharge Date/Time: 02/20/22 06:59
[2022-02-20] MEDS: Orphenadrine 60 MG/2 ML Ampul IM (01:41)
[2022-02-20] MEDS: HYDROmorphone 1 MG/ML Syringe 2 MG IM ×2 (01:41→05:48)
[2022-02-20] MEDS: Ondansetron ODT 4 MG Tablet PO (01:42)
[2022-02-20] MEDS: diazePAM 5 MG Tablet PO (04:01)
--- NOTE | 2022-02-20 04:26 | CT_ITS ---
EXAM: CT LUMBAR SPINE - CT Spine Lumbar W/O Contrast Injection HISTORY: back pain TECHNIQUE: Routine CT lumbar spine per department protocol. RADIATION DOSAGE (If Supplied By Facility): CTDIvol = ( 19.71 ) mGy, DLP = ( 656.53 ) mGycm Individualized dose optimization techniques were used for this CT. COMPARISON: Lumbar spine x-rays earlier same day. CT abdomen pelvis 02/17/2015. LIMITATIONS: None. FINDINGS: ALIGNMENT: Minimal anterior subluxation of L4 on L5. MINERALIZATION: Normal. VERTEBRAL BODIES: Unremarkable. DISC SPACES: Unremarkable. Levels: L2-3: Mild broad-based disc bulge. Facet ligamentum flavum hypertrophy. Mild relative narrowing of the central canal. L3-4:Mild broad-based disc bulge. Facet ligamentum flavum hypertrophy. Mild relative narrowing of the central canal. L4-5: Moderate broad-based disc bulge. Facet ligamentum flavum hypertrophy. Moderate narrowing of the central canal. Bilateral neural foraminal encroachment. L5-S1: Mild broad-based disc bulge. Facet ligamentum flavum hypertrophy. SPINAL CANAL: As above. POSTERIOR ELEMENTS: Facet arthropathy most pronounced at L4-5 and L5-S1. PARASPINAL TISSUES: Unremarkable OTHER: None. IMPRESSION: Degenerative changes most pronounced at L4-5 with minimal anterolisthesis and moderate central canal stenosis and neural foraminal encroachment. No evidence of fracture or traumatic subluxation. Electronically Signed: Geeta Hernández MD at 5:37 EDT , CT/Spine Lumbar without Contrast
[2022-02-20 06:52] VITALS: BP 139/68; PULSE 81; RESP 18; O2SAT 94
== END 2022-02-20 06:59 | disposition home or self-care (01) ==
PROVIDERS: Emergency Provider Emergency Medicine; PCP Student in an Organized Health Care Education/Training Program; Visit Provider Emergency Medicine
DX: S39.012A Strain of muscle, fascia and tendon of lower back, initial encounter (principal); E11.9 Type 2 diabetes mellitus without complications; Z79.4 Long term (current) use of insulin; I10 Essential (primary) hypertension; Z79.899 Other long term (current) drug therapy; Z87.891 Personal history of nicotine dependence; X58.XXXA Exposure to other specified factors, initial encounter
CPT/HCPCS: 72100; 72131; 96372; 99284

== ENCOUNTER → 2022-03-28 | Outpatient (CLI) | payer OTHER, SELFPAY ==
--- NOTE | 2022-03-28 10:06 | MRI_ITS ---
STUDY: MRI LUMBAR SPINE WITHOUT CONTRAST REASON FOR EXAM: Female, 62 years old. STRAIN low back pain TECHNIQUE: Standardized fat and water weighted pulse sequences were obtained in the sagittal and axial planes. COMPARISON: X-ray and CT of the lumbar spine x-ray dated FEBRUARY 20, 2022 FINDINGS: Normal lumbar lordosis. There is no substantial scoliosis. Normal conus medullaris that terminates at the T12-L1 level. T12-L1: Normal endplates. Normal disc height, hydration and morphology. Normal bilateral facet joints. Normal central canal and bilateral lateral recesses. Normal bilateral intervertebral neural foramina. L1-2: Normal endplates. Normal disc height, hydration and morphology. Normal bilateral facet joints. Normal central canal and bilateral lateral recesses. Normal bilateral intervertebral neural foramina. L2-3: Mild anterior endplate spurring. Diffuse disc desiccation and minimal disc space narrowing and annular bulging. Mild to moderate facet joint and ligamenta flava hypertrophy. Normal central canal. Mild bilateral lateral recess stenosis without nerve root compression. Normal bilateral intervertebral neural foramina. L3-4: Mild anterior endplate spurring. Diffuse disc desiccation and minimal annular bulging. Preserved disc space height. Mild to moderate facet joint hypertrophy. Normal central canal and bilateral lateral recesses. Normal bilateral intervertebral neural foramina. L4-5: Mild endplate spurring. Diffuse disc desiccation. Preserved disc space height. Minimal anterior annular bulging. Moderate size 1.36 cm size right paracentral and foraminal superior subligamentous disc extrusion resulting in focal moderate right foraminal stenosis and compression of the exiting nerve root. Anterolisthesis of L4 and L5 of no more than 2 mm. Moderate facet joint hypertrophy and degeneration. Mild central canal stenosis and bilateral lateral recess stenosis without nerve root compression. Normal left neural foramen. L5-S1: Normal endplates. Normal disc height, hydration and morphology. Mild right and moderate left facet joint hypertrophy. Normal central canal and bilateral lateral recesses. Mild left foraminal stenosis. Normal right neural foramen. Normal visualized sacral ala. Normal visualized paraspinous soft tissue structures. MRI/Spine Lumbar (Routine) IMPRESSION: 1. Multilevel degenerative changes, as described above. 2. L4-L5 moderate size 1.36 cm size right paracentral and foraminal superior subligamentous disc extrusion resulting in focal moderate right foraminal stenosis and compression of the exiting nerve root. Electronically Signed: Terry Pate MD at 14:35 EDT ,
== END | disposition home or self-care (01) ==
PROVIDERS: PCP Student in an Organized Health Care Education/Training Program; Visit Provider Family Medicine
DX: S39.012A Strain of muscle, fascia and tendon of lower back, initial encounter (principal)
CPT/HCPCS: 72148

== ENCOUNTER 2024-06-24 15:24 | Inpatient (IN) | payer OTHER, SELFPAY ==
[2024-06-24] VITALS (7 sets, daily range): BP systolic 128–168; BP diastolic 70–97; PULSE 56–83; RESP 16–18; TEMP 35.9–36.9; O2SAT 93–100; BMI 34.6; BMI 33.9
--- NOTE | 2024-06-24 15:41 | EKG12_ITS ---
Test Reason : Blood Pressure : / mmHG Vent. Rate : 076 BPM Atrial Rate : 076 BPM P-R Int : 128 ms QRS Dur : 082 ms QT Int : 388 ms P-R-T Axes : 011 -09 -11 degrees QTc Int : 436 ms Sinus rhythm with Premature atrial complexes Moderate voltage criteria for LVH, may be normal variant ( R in aVL , Chauncey product ) Nonspecific T wave abnormality Abnormal ECG Confirmed by MISHEL VILLEGAS, BARRETT ([id number]), editor dictionary DAISY WILCOX ([id number]) on 06/28/2024 9:29:11 AM Referred By: Confirmed By:CRYSTAL FLORENTINO MD
[2024-06-24 16:00] LABS: Absolute Lymphocyte Count 3.73 X10^3/uL (0.83-4.51); Absolute Neutrophil Count 6.2 X10^3/uL (2.0-7.7); Basophil# 0.02 X10^3/uL; Basophil% 0.2 % (0-1); Eosinophil# 0.24 X10^3/uL; Eosinophils% 2.2 % (0-5); Hematocrit 36.5 % (37-47); Hemoglobin 12.1 g/dL (12.0-15.0); Lymphocyte # 3.73 X10^3/ul (0.83-4.51); Lymphocyte % 34.4 % (19-41); Mean Corp Hgb Conc 33.2 g/dL (32-36); Mean Corpuscular Hgb 29.1 pg (27.0-32.0); Mean Corpuscular Volume 87.7 fL (81-99); Mean Platelet Vol. 8.9 fl (6.2-12.0); Monocyte# 0.64 X10^3/uL; Monocyte% 5.9 % (0-10); NRBC Flagged by Analyzer 0 % (0-5); Neutrophil # 6.19 X10^3/uL (2.7-7.7); Platelet Count 352 K/mm3 (150-450); RBC Distribution Width CV 12.5 % (11.6-14.6); Red Blood Count 4.16 M/mm3 (4.2-5.4); White Blood Count 10.9 K/mm3 (4.4-11.0)
--- NOTE | 2024-06-24 16:14 | CT_ITS ---
INDICATION: Nausea, diarrhea, abdominal pain, history of appendectomy EXAMINATION: CT ABDOMEN AND PELVIS WITH CONTRAST - CT Abdomen And Pelvis W/ Contrast Injection TECHNIQUE: Helically acquired images were obtained of the abdomen and pelvis following IV contrast. A radiation dose optimization technique was used for this scan. IV Contrast dosage and agent: 100 cc [id number] Oral contrast: None. COMPARISON: 02/17/2015 FINDINGS: LOWER CHEST: Mild bibasilar dependent changes. No cardiomegaly or pericardial effusion. LIVER: Homogeneous. No focal mass. GALLBLADDER AND BILIARY TREE: No calcified gallstones. No gallbladder distension or wall edema. No intra- or extrahepatic biliary ductal dilation. PANCREAS: No focal cystic or solid mass. SPLEEN: Normal size without focal cystic or solid mass. ADRENAL GLANDS: No nodules. KIDNEYS AND URETERS: No hydronephrosis. PERITONEUM: No ascites or free air. BOWEL: No evidence of acute appendicitis. Diffuse colonic wall thickening from the cecum to the mid transverse colon with mild pericolonic stranding. LYMPH NODES: No enlarged mesenteric or retroperitoneal lymph nodes. VESSELS: Aorta is non-dilated. URINARY BLADDER: Unremarkable. REPRODUCTIVE ORGANS: No pelvic masses. ABDOMINAL WALL: Small fat-containing inguinal hernia. BONES: No acute or aggressive abnormality. CT/Abdomen/Pelvis W IV Cont ONLY IMPRESSION: Colitis of the ascending and transverse colon. Electronically Signed: Geoffrey Mcghee MD at 18:28 EDT ,
[2024-06-24 16:21] LABS: ALB/GLOB Ratio 0.8 RATIO (0.9-2.4); AST(SGOT) 17 U/L (15-37); Alanine Aminotransfer ALT/SGPT 25 U/L (13-56); Albumin, Serum 3.4 g/dL (3.2-5.0); Alkaline Phosphatase 98 U/L (45-117); Anion Gap 8 (5-15); BUN 9 mg/dL (7-18); BUN/Creat Ratio 10.7 RATIO (10-20); Chloride 106 mmol/L (98-107); Creatinine, Serum 0.84 mg/dL (0.55-1.02); EST Glomerular Filtration Rate 73 mL/min (>60); Est Glom Filt Rate - Afr Amer 88 mL/min (>60); Estimated Creatinine Clearance 70.62 ml/min; Globulin 4.3 g/dL (2.2-4.2); Glucose 185 mg/dL (74-106); Lipase 97 U/L (13-75); Potassium 3.6 mmol/L (3.5-5.1); Protein, Total 7.7 g/dL (6.4-8.2); Sodium Level 138 mmol/L (136-145); Troponin-I HS < 3 pg/mL (3.0-54.0)
[2024-06-24] MEDS: Ondansetron 4 MG/2 ML Vial IV (16:26)
[2024-06-24] MEDS: Morphine 4 MG/ML Syringe IV ×2 (16:26→18:05)
[2024-06-24] MEDS: 0.9% Normal Saline (1000mL) 1,000 ML 999 ML IV (16:27)
--- NOTE | 2024-06-24 16:27 | EX.ED.DYSGE1 ---
HPI History of Present Illness Chief Complaint: Chest Pain Informant: patient Narrative Narrative: Patient is a 64-year-old female with history of hypertension, hypothyroid, hyper lipidemia, type 2 diabetes mellitus and coronary artery disease presenting with left-sided chest pain as well as upper abdominal pain, nausea, dry heaves and diarrhea. Patient notes her symptoms started last night when she was at work (around 1230 or 1 AM). Started with sharp pains in her left lower chest and back that started to radiate down to her abdomen. She has had severe nausea with dry heaves but no actual vomiting. She notes she is also had episodes of diarrhea with denies any blood in her stool. States the pain radiates down to her lower abdomen. She initially felt like she was having a hard time breathing with this but that is improved. She states initially the pain was sharp but has been improving and now she will does have intermittent episodes of sharp pain on her left ribs/chest. She denies any trauma or new injuries. Show she has had a mild tickle in her throat and cough recently. Movement and coughing does make the pain worse. She denies any sick contacts but notes one of her friends at work did leave because of a migraine. She has no known fevers but does feel hot. Has prior history of appendectomy. No other complaints or concerns reported at this time. [facility] Medical History (Updated 06/25/24 @ 00:[address] Ana Munson, DO) History of COVID-19 Neuropathy Former tobacco use Hypertension Hyperlipidemia Diabetes mellitus, type II Obesity (BMI 30-39.9) Hypothyroidism Home Medications ?Medication ?Instructions ?Recorded ?Last Taken ?Type levothyroxine 112 mcg tablet 137 mcg PO DAILY 12/07/15 Unknown History metformin 850 mg tablet 850 mg PO BIDCM 12/07/15 Unknown History fluoxetine 20 mg capsule 20 mg PO DAILY 07/15/18 Unknown History simvastatin 20 mg tablet 20 mg PO DAILY 07/15/18 Unknown History gabapentin 300 mg capsule 300 mg PO TID 06/24/24 Unknown History metoprolol succinate 25 mg 12.5 mg PO DAILY 06/24/24 Unknown History tablet,extended release 24 hr trazodone 50 mg tablet 100 mg PO QHS PRN 06/24/24 Unknown History Allergy/AdvReac Type Severity Reaction Status Date / Time etodolac (From [facility]) Allergy li me Verified 06/24/24 15:24 up Penicillins Allergy Itching Verified 06/24/24 15:24 tramadol Allergy Rash Verified 06/24/24 15:24 Family History (Updated 06/24/24 @ 21:[address] Kenyatta Salter MD) Sister CAD (coronary artery disease) Heart disease Hypertension Mother Heart disease Hypertension CAD (coronary artery disease) Father Heart disease Hypertension CAD (coronary artery disease) Surgical History (Updated 06/24/24 @ 20:[address] Kenyatta Salter MD) S/P appendectomy Social History (Updated 06/24/24 @ 21:[address] Kenyatta Salter MD) household members: none Smoking Status: Former smoker how long ago did patient quit smoking: Quit ~ 20 years prior 2003, smoked < 1 ppd since teen until quit. alcohol intake: current alcohol intake frequency: holidays/special occasions only substance use type: does not use ROS ROS ED Constitutional Constitutional ED: Reports sweats; Denies chills or fever(s) Eyes Eyes: Denies change in vision ENT ENT ED: Denies rhinorrhea or sore throat Cardiovascular Cardiovascular: Reports chest pain; Denies palpitations Respiratory/Chest Respiratory/Chest: Reports cough and dyspnea Gastrointestinal Gastrointestinal: Reports abdominal pain, diarrhea and nausea; Denies melena or vomiting Musculoskeletal Musculoskeletal: Reports back pain; Denies arthralgias Integumentary Denies rash Neurologic Neurologic: Denies headache(s), paresthesias or weakness EXAM Physical Exam Const Vital Signs: 06/24/24 15:24 06/24/24 17:24 06/24/24 19:00 Temperature 96.7 F L Temperature Source Temporal Pulse Rate 83 56 L 67 Respiratory Rate 18 16 17 Blood Pressure 151/90 H 156/71 H 157/70 H Blood Pressure Mean 110 99 99 Pulse Ox 100 96 96 Oxygen Delivery Method Room Air Room Air Room Air Positive well nourished and well developed General Appearance ED: well developed and NAD HEENT Reports moist mucous membranes Eyes PERRL and EOMs intact bilaterally Neck supple and no JVD Chest Wall inspection of chest normal and palpation of chest normal Resp normal respiratory effort and clear to auscultation bilaterally Cardio regular rate, regular rhythm and no murmurs GI Inspection: Negative for abdominal distention Auscultation: hypoactive bowel sounds Palpation: soft and tender epigastric; Negative for guarding Extremity normal to inspection Extremity Narrative: 2+ radial and DP pulses General Extremety ED: Negative for edema General Extremity: Negative for edema Neuro oriented x3 Sensorium / Orientation: alert Motor Exam: general weakness Psych mental status grossly normal Skin no rashes or lesions noted and no wounds MDM MDM MDM Narrative Medical decision making narrative: Patient evaluated for left-sided chest pain as well as abdominal pain. I suspect the pain is more coming from her abdomen based on physical exam but will also obtain troponin. EKG shows LVH changes but no acute changes compared to prior EKG. Patient is given IV morphine, fluids and Zofran for symptoms initially in the emergency room. Differential includes was not limited to ACS, pneumonia, pneumothorax, small bowel obstruction, pancreatitis, colitis, pyelonephritis, renal colic, COVID-19. Lab work is largely normal. She has a mildly elevated lipase of 97. Urinalysis is not consistent with infection. Patient does have some improvement with morphine but does require redosed. CT of the abdomen pelvis does show colitis of the ascending and transverse colon. Chest x-ray viewed by myself as well as radiology does not show any acute process. Given the patient's degree of pain and distribution of her colitis I am concerned that she could have a possible ischemic colitis. I did add on a lactate which is normal. Discussed the case with Dr. Medel who is in agreement with my concern. He is agreed with admission and would like to have the patient prepped for flexible sigmoidoscopy and biopsy tomorrow. Also recommends obtaining stool cultures. This is ordered and communicated with admitting physician, Dr. Salter. Patient is agreeable with plan of care and would prefer to be admitted given her pain and symptoms. Patient is in the meantime started on Cipro and Flagyl in case this is an infective colitis. Patient remains hemodynamically stable in the emergency room. Lab Data Attestation: I reviewed the patient's lab results. Labs: Laboratory Results - last 24 hr 06/24/24 06/24/24 06/24/24 15:50 17:55 20:15 WBC 10.9 RBC 4.16 L Hgb 12.1 Hct 36.5 L MCV 87.7 MCH 29.1 MCHC 33.2 RDW Std Deviation 40.0 RDW Coeff of Mechelle 12.5 Plt Count 352 MPV 8.9 Immature Gran % (Auto) 0.300 Neut % (Auto) 57.0 Lymph % (Auto) 34.4 [place] % (Auto) 5.9 Eos % (Auto) 2.2 Baso % (Auto) 0.2 Absolute Neuts (auto) 6.2 Absolute Lymphs (auto) 3.73 Nucleated RBC % 0 Sodium 138 Potassium 3.6 Chloride 106 Carbon Dioxide 24.0 Anion Gap 8 BUN 9 Creatinine 0.84 Estim Creat Clear Calc 70.62 Est GFR (MDRD) Af Amer 88 Est GFR (MDRD) Non-Af 73 BUN/Creatinine Ratio 10.7 Glucose 185 H Lactic Acid 1.3 Calcium 9.0 Phosphorus 2.1 L Magnesium 1.8 Total Bilirubin 0.40 AST 17 ALT 25 Alkaline Phosphatase 98 Troponin I High Sens < 3 L Total Protein 7.7 Albumin 3.4 Globulin 4.3 H Albumin/Globulin Ratio 0.8 L Lipase 97 H Urine Color Yellow Urine Clarity Clear Urine pH 7.0 Ur Specific [place] 1.005 Urine Protein Negative Urine Glucose (UA) Normal Urine Ketones Negative Urine Occult Blood Negative Urine Nitrite Negative Urine Bilirubin Negative Urine Urobilinogen Normal Ur Leukocyte Esterase Negative Urine RBC 0 SEEN Urine WBC 0 SEEN Ur Squamous Epith Cells 0 SEEN Urine Bacteria 0 SEEN Urine Mucus 0 SEEN Radiography Diagnostic Testing: Clinical Impression(s) from Imaging Studies Abdomen/Pelvis CT 06/24/24 16:14 IMPRESSION: Colitis of the ascending and transverse colon. Electronically Signed: Geoffrey Mcghee MD at 18:28 EDT Reading Location ID and State: [facility], [facility] / [place] Tel , Service support , Chest X-Ray 06/24/24 17:24 IMPRESSION: No radiographic evidence of acute cardiopulmonary disease. Electronically Signed: Geoffrey Mcghee MD at 18:20 EDT , Rhythm Strip Rhythm Strip: Sinus Rhythm Rate: 76 Ectopy: None EKG Initial EKG: Attestation: I personally reviewed and interpreted this EKG as follows: Interpretation: Sinus Rhythm Comments: Normal sinus rhythm at 76 bpm Left axis deviation Normal intervals Nonspecific T wave changes Moderate voltage criteria for LVH Compared to prior EKG patient patient has reversal of T wave inversions in V4, V5 and V6 Prior EKG tracings: available for review Discharge Plan Dx/Rx/DC Orders Clinical Impression: Colitis Disposition Disposition: Acute Care Hospital [facility] Discharge Date/Time: 06/24/24 21:44
--- NOTE | 2024-06-24 17:24 | RAD_ITS ---
INDICATION: left sided chest pain EXAMINATION/TECHNIQUE: X-RAY - XR Chest 2 Views COMPARISON: 12/13/2020 FINDINGS: LINES/DEVICES: None. LUNGS: No consolidation, edema or effusion. No pneumothorax. MEDIASTINUM AND CARDIOVASCULAR STRUCTURES: Cardiac silhouette not enlarged. Central airways and mediastinal contour are unremarkable. BONES AND SOFT TISSUES: Unremarkable. RAD/Chest PA and Lateral IMPRESSION: No radiographic evidence of acute cardiopulmonary disease. Electronically Signed: Geoffrey Mcghee MD at 18:20 EDT ,
[2024-06-24 18:00] LABS: Bacteria 0 SEEN /hpf (None Seen); Mucous, Urine 0 SEEN /hpf (<or=2+); Red Blood Cells-Urine 0 SEEN /hpf (0-5); Squamous Epithelial Cells - UA 0 SEEN /hpf (5-10); White Blood Cells 0 SEEN /hpf (0-5)
[2024-06-24 18:03] LABS: Color, Urine Yellow (Yellow); Glucose, Dipstick Normal (Normal); Ketone-Dipstick Negative (Negative); Leukocyte Esterase-Dipstick Negative /ul (Negative); Nitrite-Dipstick Negative (Negative); Occult Blood-Urine Negative /ul (Negative); Protein-Dipstick Negative (Negative); Specific Gravity, Urine 1.005 (1.002-1.030); Urine Bilirubin Dipstick Negative (Negative); Urine Clarity Clear (Clear); Urine Urobilinogen Normal (Normal)
[2024-06-24] MEDS: METRONIDAZOLE 150 MG IV (20:41)
--- NOTE | 2024-06-24 20:43 | HP.PCM.HOS_ITS ---
HPI - General General Date of Admission: 06/24/24 Date of Service: 06/24/24 Chief Complaint: Abdominal pain, N/V/D, chest pain. HPI Narrative The patient is a 64 y/o F w/ PMHx: LALY, Anxiety and Depression, Former tobacco use, Hypothyroidism, HTN, HLD, Diabetes mellitus type II with chronic neuropathy who presents to the [facility] ED on 06/24/24 with onset of left-sided chest discomfort as well as upper abdominal discomfort with nausea and dry heaves in addition to loose stools starting the evening prior while she was at work near midnight with initially sharp pains to the left lower chest and back which radiated then into her abdomen with onset of severe nausea and dry heaving but never any actual emesis with the pain since improving some however she has been having still intermittent episodes of discomfort with a mild recent cough and throat, tickle sensation reporting that one of her friends at work recently had to leave because of a migraine but no fevers or chills but given ongoing discomfort prompted eventual ED evaluation to be cautious. She does report a recent dental infection and took antibiotics (one pill three times daily x 5 days but unclear antibiotic but per review appears to have been clindamycin). Workup in the ED included T96.7, heart rate 83, BP 151/90, respiratory rate 18, 100% on room air, CBC with WBC 10.9, Annia 12.1, MCV 87.7, platelet 352 without shift, CMP with glucose 185 and lipase 97 otherwise unremarkable, troponin less than 3, urinalysis unremarkable, SARS COVID rapid negative, chest x-ray with no acute cardiopulmonary findings, CT abdomen and pelvis with contrast injection with colitis of the ascending and transverse colon pending lactic acid upon request evaluation of patient.. In the ED patient ministered 1 L normal saline, ciprofloxacin 400 mg IV x 1, Flagyl 500 mg IV x 1, morphine 4 mg IV x 2, Zofran 4 mg IV x 1. Pending stool for lactoferrin/WBC as well as C. difficile as well as enteric per ED physician upon evaluation also, EKG with sinus rhythm with nonspecific T wave changes with compared to previously reversal of T wave inversions in 4, 5 and 6. ED discussed case with gastroenterology. [facility] Medical History (Updated 06/24/24 @ 21:[address] Kenyatta Salter MD) History of COVID-19 Neuropathy Former tobacco use Hypertension Hyperlipidemia Diabetes mellitus, type II Obesity (BMI 30-39.9) Hypothyroidism Home Medications ?Medication ?Instructions ?Recorded ?Last Taken ?Type levothyroxine 112 mcg tablet 137 mcg PO DAILY 12/07/15 Unknown History metformin 850 mg tablet 850 mg PO BIDCM 12/07/15 Unknown History fluoxetine 20 mg capsule 20 mg PO DAILY 07/15/18 Unknown History simvastatin 20 mg tablet 20 mg PO DAILY 07/15/18 Unknown History gabapentin 300 mg capsule 300 mg PO TID 06/24/24 Unknown History metoprolol succinate 25 mg 12.5 mg PO DAILY 06/24/24 Unknown History tablet,extended release 24 hr trazodone 50 mg tablet 100 mg PO QHS PRN 06/24/24 Unknown History Allergy/AdvReac Type Severity Reaction Status Date / Time etodolac (From [facility]) Allergy li me Verified 06/24/24 15:24 up Penicillins Allergy Itching Verified 06/24/24 15:24 tramadol Allergy Rash Verified 06/24/24 15:24 Family History (Updated 06/24/24 @ 21:[address] Kenyatta Salter MD) Sister CAD (coronary artery disease) Heart disease Hypertension Mother Heart disease Hypertension CAD (coronary artery disease) Father Heart disease Hypertension CAD (coronary artery disease) Surgical History (Updated 06/24/24 @ 20:[address] Kenyatta Salter MD) S/P appendectomy Social History (Updated 06/24/24 @ 21:[address] Kenyatta Salter MD) household members: none Smoking Status: Former smoker how long ago did patient quit smoking: Quit ~ 20 years prior 2003, smoked < 1 ppd since teen until quit. alcohol intake: current alcohol intake frequency: holidays/special occasions only substance use type: does not use ROS ROS Narrative Admission Review of Systems: CONSTITUTIONAL: No weight loss, fever, chills, + weakness or fatigue. HEENT: Eyes: No visual loss, blurred vision, double vision or yellow sclerae. Ears, Nose, Throat: No hearing loss, sneezing, congestion, runny nose or sore throat. SKIN: No rash or itching, lesions, wounds. CARDIOVASCULAR: + chest pain. No palpitations, edema, orthopnea, syncopal events. RESPIRATORY: No shortness of breath, cough or sputum, wheezing, hemoptysis. GASTROINTESTINAL: + anorexia, nausea without vomiting but notable dry having, diarrhea, abdominal pain. No melena, BRBPR. GENITOURINARY: No dysuria, frequency, urgency or retention. NEUROLOGICAL: No headache, dizziness, syncope, paralysis, ataxia, numbness or tingling in the extremities, focal weakness, change in bowel or bladder control, seizure. MUSCULOSKELETAL: + muscle, back pain, joint pain or stiffness. HEMATOLOGIC: No anemia, bleeding or bruising. LYMPHATICS: No enlarged nodes. No history of splenectomy. PSYCHIATRIC: + history of depression and anxiety. ENDOCRINOLOGIC: No reports of sweating, cold or heat intolerance. No polyuria or polydipsia. ALLERGIES: No history of asthma, hives, eczema or rhinitis. Vital Signs Vital Signs Vital Signs: 06/24/24 15:24 06/24/24 17:24 06/24/24 19:00 Temperature 96.7 F L Temperature Source Temporal Pulse Rate 83 56 L 67 Respiratory Rate 18 16 17 Blood Pressure 151/90 H 156/71 H 157/70 H Blood Pressure Mean 110 99 99 Pulse Ox 100 96 96 Oxygen Delivery Method Room Air Room Air Room Air Weight Weight: 189 lb 6.033 oz Body Mass Index (BMI) 34.6 Physical Exam Narrative Physical Examination: General: Awake, alert, oriented x 3 and cooperative, laying in ED bed, fatigued otherwise no acute distress, denies any current chest discomfort. Skin: Normal color, normal turgor, no icterus, no cyanosis except occasional abrasion. HEENT: AT/NC, EOMI, PERRLA, moderately dry MM, no carotid bruits or JVD noted. Lungs: Mildly diminished, greater bases, poor effort, no rales, ronchi or wheezing. Heart: Regular rate and rhythm; no gallop, rub audible. Abdomen: Soft, obese, generalized discomfort with palpation but no rebound or guarding, nondistended, hyperactive bowel sounds, no appreciated HSM but difficult given pain elicited. Extremities: No cyanosis, clubbing, or edema. Neurological: Patient awake, alert, oriented as noted, cognitive function intact; pupils equally reactive to light and accommodation, cranial nerves grossly normal, moving all 4 extremities, no focal deficits, strength moderately global decrease secondary to acute complaints Psychiatric: Affect appears fatigued, mildly uncomfortable, no acute evidence of depressive or anxiety feelings but does have underlying history. Results Lab / Micro Data 06/24/24 15:50 06/24/24 15:50 Labs: Laboratory Results - last 24 hr 06/24/24 15:50: WBC 10.9, RBC 4.16 L, Hgb 12.1, Hct 36.5 L, MCV 87.7, MCH 29.1, MCHC 33.2, RDW Std Deviation 40.0, RDW Coeff of Mechelle 12.5, Plt Count 352, MPV 8.9, Immature Gran % (Auto) 0.300, Neut % (Auto) 57.0, Lymph % (Auto) 34.4, [place] % (Auto) 5.9, Eos % (Auto) 2.2, Baso % (Auto) 0.2, Absolute Neuts (auto) 6.2, Absolute Lymphs (auto) 3.73, Nucleated RBC % 0, Sodium 138, Potassium 3.6, Chloride 106, Carbon Dioxide 24.0, Anion Gap 8, BUN 9, Creatinine 0.84, Estim Creat Clear Calc 70.62, Est GFR (MDRD) Af Amer 88, Est GFR (MDRD) Non-Af 73, BUN/Creatinine Ratio 10.7, Glucose 185 H, Calcium 9.0, Total Bilirubin 0.40, AST 17, ALT 25, Alkaline Phosphatase 98, Troponin I High Sens < 3 L, Total Protein 7.7, Albumin 3.4, Globulin 4.3 H, Albumin/Globulin Ratio 0.8 L, Lipase 97 H 06/24/24 17:55: Urine Color Yellow, Urine Clarity Clear, Urine pH 7.0, Ur Specific [place] 1.005, Urine Protein Negative, Urine Glucose (UA) Normal, Urine Ketones Negative, Urine Occult Blood Negative, Urine Nitrite Negative, Urine Bilirubin Negative, Urine Urobilinogen Normal, Ur Leukocyte Esterase Negative, Urine RBC 0 SEEN, Urine WBC 0 SEEN, Ur Squamous Epith Cells 0 SEEN, Urine Bacteria 0 SEEN, Urine Mucus 0 SEEN Micro: Microbiology 06/24/24 16:22 Nasal Secretion SARS-CoV-2 Antigen (Rapid) - Final Rhythm Strip Rhythm Strip: Sinus Rhythm Rate: 76 Ectopy: None Imaging Radiology Impression Abdomen/Pelvis CT 06/24/24 16:14 IMPRESSION: Colitis of the ascending and transverse colon. Electronically Signed: Geoffrey Mcghee MD at 18:28 EDT , Chest X-Ray 06/24/24 17:24 IMPRESSION: No radiographic evidence of acute cardiopulmonary disease. Electronically Signed: Geoffrey Mcghee MD at 18:20 EDT , Assessment & Plan Assessment/Plan (1) Colitis: PLAN: Plan The patient is a 64 y/o F w/ PMHx: LALY, Anxiety and Depression, Former tobacco use, Hypothyroidism, HTN, HLD, Diabetes mellitus type II who presents to the [facility] ED on 06/24/24 with onset of left-sided chest discomfort as well as upper abdominal discomfort with nausea and dry heaves in addition to loose stools starting the evening prior while she was at work near midnight with initially sharp pains to the left lower chest and back which radiated then into her abdomen with onset of severe nausea and dry heaving but never any actual emesis with the pain since improving some however she has been having still intermittent episodes of discomfort with a mild recent cough and throat, tickle sensation reporting that one of her friends at work recently had to leave because of a migraine but no fevers or chills but given ongoing discomfort prompted eventual ED evaluation to be cautious. #1. Acute colitis of the ascending and transverse colon, possibly infectious, possible ischemic etiology: Will admit to PCU given concurrent atypical chest discomfort as noted below, will monitor I&Os, maintain on clears with diet advancement if appropriate once evaluated by gastroenterology, treat with cipro and flagyl given penicillin allergy, maintain on IV PPI, anti-emetics, pain regimen PRN, will plan bowel prep with flex sigmoidoscopy for Bx per Dr. Medel, pending cdiff/enteric/lactoferrin/WBC especially given recent abx therapy history. Procalcitonin requested. COVID PCR requested. #2. Chest Pain: EKG with sinus rhythm with nonspecific T wave changes with compared to previously reversal of T wave inversions in 4, 5 and 6, CXR w/ no acute cardiopulmonary findings, initial trop less than 3. Although suspect related with acute presentation #1 to be cautious will place on a monitored bed to assure no acute myocardial infarction with serial cardiac enzymes and EKGs. Magnesium level requested. FLP in AM. Will defer initiation of consult for stress testing because again suspect this is related to #1 but may need to consider in the future. Hold on immediate ASA given planned Bx w/ endoscopy, add following. #3. Diabetes mellitus type II w/ Chronic neuropathy: Hold oral home regimen, clarifying if on any insulin therapy, given presentation will allow clears until evaluated by gastroenterology, accu checks w/ ISS, continue home gabapentin regimen. #4. Anxiety and depression: Will continue patient on fluoxetine and trazodone regimen. #5. Hypertension: Will continue home metoprolol regimen, PRN IV hydralazine. #6. Hyperlipidemia: Will continue patient on statin therapy. #7. Hypothyroidism: Will continue patient on levothyroxine regimen. #8. Former tobacco use: Encourage continued tobacco cessation. #9. Obesity: Weight loss and lifestyle changes encouraged. #10. LALY: Noted prior diagnosis 03/23/2015, will defer any Pap therapy given nausea, emesis episodes to be cautious. #11. DVT prophylaxis: SCDs, defer chemoprophylaxis given possible Bx as noted. #12. CODE status: Patient HCPOA and living will are not in place but she notes if necessary she would want her children to be her decision makers. Discussed CODE status at length including difference between FULL code, DNR-CCA and DNR-CC status. Following discussions about the differences in these status, requested Full Code status. Advanced Care Planning Face to Face Time: 16 minutes. Charges/Coding Visit Charges Inpatient E&M: 51373 Init Hosp L3 Procedures Hospitalists Procedures: 84002 Advncd Care Plan 30 Min
[2024-06-24 20:44] LABS: Lactic Acid 1.3 mmol/L (0.4-1.9)
[2024-06-24 21:21] LABS: Magnesium 1.8 mg/dL (1.6-2.6); Phosphorus 2.1 mg/dL (2.5-4.9)
[2024-06-24] MEDS: Ciprofloxacin 400 MG/200 ML BAG 200 MG IV (22:07)
[2024-06-24 22:08] LABS: Procalcitonin 0.06 ng/mL (0.00-0.09)
[2024-06-24] MEDS: traZODone 100 MG Tablet PO (22:58)
[2024-06-24] MEDS: 0.9% Saline Lock 10 ML Syringe IV (22:58)
[2024-06-24] MEDS: Morphine 2 MG/ML Syringe IV (22:58)
[2024-06-24] MEDS: 0.9% Normal Saline (1000mL) 1,000 ML 100 ML IV (23:02)
[2024-06-24] MEDS: Bisacodyl 5 MG Tablet 20 MG PO (23:36)
[2024-06-24 23:37] LABS: Bedside Glucose 149 mg/dL (74-106)
[2024-06-24 23:57] LABS: Troponin-I HS 4 pg/mL (3.0-54.0)
[2024-06-25] VITALS (14 sets, daily range): BP systolic 106–149; BP diastolic 56–75; PULSE 63–82; RESP 16–18; TEMP 36.1–36.6; O2SAT 92–99; BMI 33.9
[2024-06-25] MEDS: Pantoprazole Sodium 40 MG in 0.9% Normal Saline (100mL MB+) 100 ML 330 MG IV ×3 (00:27→21:20)
[2024-06-25] MEDS: Electrolyte Solution/Peg's 4000 ML PO (00:58)
[2024-06-25 02:38] LABS: Troponin-I HS 4 pg/mL (3.0-54.0)
[2024-06-25] MEDS: oxyCODONE 5 MG Tablet PO (03:57)
[2024-06-25 04:26] LABS: Bedside Glucose 158 mg/dL (74-106)
[2024-06-25 05:36] LABS: Absolute Lymphocyte Count 2.43 X10^3/uL (0.83-4.51); Absolute Neutrophil Count 5.5 X10^3/uL (2.0-7.7); Basophil# 0.02 X10^3/uL; Basophil% 0.2 % (0-1); Eosinophil# 0.32 X10^3/uL; Eosinophils% 3.6 % (0-5); Hemoglobin 10.8 g/dL (12.0-15.0); Lymphocyte # 2.43 X10^3/ul (0.83-4.51); Lymphocyte % 27.3 % (19-41); Mean Corp Hgb Conc 31.8 g/dL (32-36); Mean Corpuscular Volume 91.2 fL (81-99); Monocyte# 0.56 X10^3/uL; Monocyte% 6.3 % (0-10); NRBC Flagged by Analyzer 0 % (0-5); Neutrophil # 5.53 X10^3/uL (2.7-7.7); Neutrophil % 62.2 % (47-70); Platelet Count 287 K/mm3 (150-450); RBC Distribution Width CV 12.7 % (11.6-14.6); Red Blood Count 3.73 M/mm3 (4.2-5.4); White Blood Count 8.9 K/mm3 (4.4-11.0)
[2024-06-25 05:51] LABS: ALB/GLOB Ratio 0.8 RATIO (0.9-2.4); AST(SGOT) 17 U/L (15-37); Alanine Aminotransfer ALT/SGPT 19 U/L (13-56); Albumin, Serum 2.9 g/dL (3.2-5.0); Alkaline Phosphatase 78 U/L (45-117); Anion Gap 6 (5-15); BUN 4 mg/dL (7-18); Calcium,Total 8.3 mg/dL (8.5-10.1); Chloride 109 mmol/L (98-107); Cholesterol 186 mg/dL (200); Creatinine, Serum 0.67 mg/dL (0.55-1.02); EST Glomerular Filtration Rate 95 mL/min (>60); Est Glom Filt Rate - Afr Amer 115 mL/min (>60); Estimated Creatinine Clearance 88.32 ml/min; Globulin 3.8 g/dL (2.2-4.2); Glucose 143 mg/dL (74-106); High Density Lipoprotein 59 mg/dL; Potassium 3.4 mmol/L (3.5-5.1); Protein, Total 6.7 g/dL (6.4-8.2); Sodium Level 140 mmol/L (136-145); Triglycerides 162 mg/dL; Troponin-I HS 4 pg/mL (3.0-54.0); Very Low Density Lipoprotein 32 mg/dL (5-40)
[2024-06-25] MEDS: metroNIDAZOLE 500 MG/100 ML BAG 100 MG IV ×3 (06:14→21:33)
[2024-06-25] MEDS: 0.9% Saline Lock 10 ML Syringe IV ×2 (07:00→13:47)
[2024-06-25] MEDS: Morphine 2 MG/ML Syringe IV ×4 (07:00→21:16)
[2024-06-25 10:38] LABS: Bedside Glucose 137 mg/dL (74-106)
[2024-06-25] MEDS: Lactated Ringers 1,000 ML 15 ML IV (10:41)
--- NOTE | 2024-06-25 10:45 | PCM.PRE.AN2 ---
ASA Classification* ASA Classification ASA Classification: 2 and E Assessment & Plan Anesthesia* Anesthesia Assessment Anesthesia Assessment: Discussed sedation and/or anesthesia options, risks, benefits, and alternatives with patient/parents/legal guardian/POA. Questions invited. The patient/parents/legal guardian/POA seems to understand and agrees to proceed with anesthesia plan. Reviewed the physical assessment, medical history, allergy history and patient home medications list prior to surgery/procedure/anesthetic and documented any changes. Performed airway and anesthesia risk assessments. Anesthesia Type Anesthesia Type: MAC (see written pre anesthesia record for full assessment) Anesthesia Focused Assessment* Temperature: 97 F Pulse Rate: 75 Blood Pressure: 149/71 Respiratory Rate: 17 Pulse Ox: 97 Airway Assessment Mouth opens: >3 cm Mallampati Score: II Focused Labs Anesthesia Preop lab: CBC WBC 8.9 K/mm3 (4.4-11.0) 06/25/24 05:12 RBC 3.73 M/mm3 (4.2-5.4) L 06/25/24 05:12 Hgb 10.8 g/dL (12.0-15.0) L 06/25/24 05:12 Hct 34.0 % (37-47) L 06/25/24 05:12 Plt Count 287 K/mm3 (150-450) 06/25/24 05:12 CHEMISTRY Potassium 3.4 mmol/L (3.5-5.1) L 06/25/24 05:12 Sodium 140 mmol/L (136-145) 06/25/24 05:12 Magnesium 1.8 mg/dL (1.6-2.6) 06/24/24 15:50 Phosphorus 2.1 mg/dL (2.5-4.9) L 06/24/24 15:50 BUN 4 mg/dL (7-18) L 06/25/24 05:12 Creatinine 0.67 mg/dL (0.55-1.02) 06/25/24 05:12 Glucose 143 mg/dL (74-106) H 06/25/24 05:12 POC Glucose 137 mg/dL (74-106) H 06/25/24 10:07 TSH 6.91 uIU/mL (0.358-3.74) H 09/04/17 05:45 COAG Pre-Assessment Diagnosis/Proposed Procedure Planned Operative Procedure(s): colon Anesthesia History 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 When Was Last Pacemaker Check QUESTION #4 FULL TEXT: You/Your Family Experience fever (hyperthermia) with Anesthesia Last Oral Intake Last Oral intake: Last Oral Intake NPO since Meds taken in AM with sips of Yes 06/25/24 06:16 water? Meds patient instructed to oxy 06/25/24 06:16 take am of surgery PONV PONV - farm management adviser: PONV - farm management adviser Female HX of Motion Sickness HX of N/V After Surgery Non-Smoker Duration of Surgery greater than 60 minutes Number of Risk Factors PONV Score Height & Weight Height & Weight: Anesthesia: Height & Weight Height 5 ft 2.5 in 06/25/24 10:04 Weight: 85.5 kg 06/25/24 10:04 Body Mass Index (BMI) 33.9 06/25/24 06:16 Respiratory Assessment Respiratory Assessment - farm management adviser: Respiratory Tract Infection Hx - farm management adviser Hx Respiratory Tract Infection No 06/25/24 10:17 STOP Sleep Apnea STOP Sleep Apnea - farm management adviser: STOP Sleep Apnea - farm management adviser Hx Hypertension Yes 06/24/24 22:17 Hx Sleep Apnea Yes 06/24/24 22:17 CPAP No 06/24/24 22:17 BIPAP No 06/24/24 22:17 Do you snore loudly (louder than talking or can be heard Do you often feel tired/ fatigued/ sleepy during daytime? Has anyone observed you stop breathing during sleep? STOP Results Positive 06/24/24 22:17 QUESTION #5 FULL TEXT : Do you snore loudly (louder than talking or can be heard through closed doors)? Tobacco Use History Tobacco Use History - farm management adviser: Tobacco Use History - farm management adviser Tobacco Use Smoking Status Former smoker 06/24/24 22:17 Hx Tobacco Use No 06/24/24 22:17 Years Smoking Packs Smoked per Day Smoking Cessation Date was No - quit smoking greater 06/24/24 22:17 within the last 15 years than 15 years ago Hx Smoking Cessation Date 02/20/07 06/24/24 22:17 Hx Smoking Cessation Yes 06/24/24 22:17 Counseling Hematologic Medial History Hematologic Hx - farm management adviser: Hematologic Medical Hx - rink rat Hx of Blood Transfusion No 06/24/24 22:17 Hx of Transfusion in last 3 No 06/24/24 22:17 Months Date of Last Transfusion (if within last 3 months) Ever experience any problems No 06/24/24 22:17 with transfusion(s)? Specify any problems Hx of Preganancy in last 3 No 06/24/24 22:17 Months Nurse Filling Out Transfusion HSMUCKER 06/24/24 22:17 & Questions: Date: 06/24/24 06/24/24 22:17 Time: 22:18 06/24/24 22:17 Patient unable to answer at this time (ie. confused, unrespo /Reproduction History /Reproductive History - farm management adviser: /Reproductive Hx- farm management adviser Hx Now No 06/25/24 10:17 Gestational Age (in weeks): EDC: Hx Hx Para Hx Section SAB No 06/25/24 10:17 Active Medications Active Medications: Current Medications Generic Name Dose Route Start Last Admin Trade Name Freq PRN Reason Stop Dose Admin Acetaminophen 650 mg 06/24/24 22:00 Acetaminophen 325 Mg Tablet PO Q4H PRN PRN Fever, pain 1-10/10 Al Hydrox/Mg Hydrox/Simethicone 30 ml 06/24/24 22:00 Mag /Aluminum/Simeth Wch Udc 30 Ml Oral.Susp PO Q6H PRN PRN Gastric Burning Albuterol Sulfate 2.5 mg 06/24/24 22:00 Albuterol 2.5 Mg/3 Ml Vial.Neb. INHALATION Q2H PRN PRN Dyspnea, wheezing Atorvastatin Calcium 10 mg 06/25/24 22:00 Atorvastatin Calcium 10 Mg Tablet PO QHS [facility] Clarify Med Order 1 each 06/24/24 23:00 06/24/24 22:52 Clarify Order NOTE Not Given CLARIFY DAHLIA Fluoxetine HCl 20 mg 06/25/24 10:00 Fluoxetine 20 Mg Capsule PO DAILY DAHLIA Glucagon 1 mg 06/24/24 22:00 Glucagon 1 Mg/Ml Syringe IM X1 PRN HYPOGLYCEMIA Protocol Guaifenesin 20 ml 06/24/24 22:00 Guaifenesin 10 Ml Udc (200mg/10ml) PO Q4H PRN PRN COUGH Hydralazine HCl 10 mg 06/24/24 22:00 Hydralazine 20 Mg/Ml Vial IV Q4H PRN PRN SBP > 160 Protocol Ciprofloxacin 400 mg in 200 mls @ 200 mls/hr 06/25/24 10:00 Cipro IV Q12 DAHLIA Sodium Chloride 1,000 mls @ 100 mls/hr 06/24/24 22:00 06/25/24 10:08 IV 06/25/24 12:59 Infused .Q10H DAHLIA Infusion Dextrose 250 mls @ 0 mls/hr 06/24/24 22:00 Dextrose 10%-Water IV .Q0M PRN HYPOGLYCEMIA Protocol As Directed Pantoprazole Sodium 40 mg/ 110 mls @ 330 mls/hr 06/24/24 22:00 06/25/24 10:02 Sodium Chloride IV 330 mls/hr Q12 DAHLIA Administration Sodium Chloride 250 mls @ 15 mls/hr 06/24/24 22:20 IV .[id number] PRN Additional IVPB Infusion Sodium Chloride 250 mls @ 15 mls/hr 06/24/24 22:20 IV .[id number] PRN Saline Flush Metronidazole 500 mg in 100 mls @ 100 mls/hr 06/25/24 06:00 06/25/24 07:48 Flagyl IV Infused Q8 DAHLIA Infusion Lactated Ringer's 1,000 mls @ 15 mls/hr 06/25/24 10:30 06/25/24 10:41 IV 15 mls/hr .Q48H DAHLIA Administration Insulin Human Lispro 0 unit 06/24/24 22:00 06/25/24 10:08 Insulin Lispro 100 Unit/Ml Insuln.Pen SC Not Given Q6H DAHLIA Protocol Levothyroxine Sodium 137 mcg 06/25/24 06:00 06/25/24 04:56 Levothyroxine 137 Mcg Tablet PO Not Given DAILY@0600 DAHLIA Metoprolol Succinate 12.5 mg 06/25/24 10:00 Metoprolol(Xl)Succ 25 Mg Tablet PO DAILY [facility] Protocol Morphine Sulfate 2 mg 06/24/24 22:00 06/25/24 10:01 Morphine 2 Mg/Ml Syringe IV 2 mg Q3H PRN PRN Administration Pain Score 6-10 Nitroglycerin 0.4 mg 06/24/24 22:00 Nitroglycerin (Inpatient Use) 0.4 Mg Tab.Subl SL Q5M PRN CARDIAC/CHEST PAIN Ondansetron HCl 4 mg 06/24/24 22:00 Ondansetron 4 Mg/2 Ml Vial IV Q8H PRN PRN NAUSEA/VOMITING Oxycodone HCl 5 mg 06/24/24 22:00 06/25/24 03:57 Oxycodone 5 Mg Tablet PO 5 mg Q4H PRN PRN Administration Pain Score 4-10 Prochlorperazine Edisylate 5 mg 06/24/24 22:00 Prochlorperazine 10 Mg/2 Ml Vial IV Q4H PRN PRN Breakthrough Nausea/Vomiting Sodium Chloride 10 - 40 ml 06/24/24 22:20 06/25/24 07:00 0.9% Saline Lock 10 Ml Syringe IV 10 ml UD PRN Administration SALINE FLUSH Trazodone HCl 100 mg 06/24/24 22:00 06/24/24 22:58 Trazodone 100 Mg Tablet PO 100 mg QHS PRN PRN Administration INSOMNIA PFSH Medical History History of COVID-19 Neuropathy Former tobacco use Hypertension Hyperlipidemia Diabetes mellitus, type II Obesity (BMI 30-39.9) Hypothyroidism Home Medications ?Medication ?Instructions ?Recorded ?Last Taken ?Type levothyroxine 112 mcg tablet 137 mcg PO DAILY 12/07/15 Unknown History metformin 850 mg tablet 850 mg PO BIDCM 12/07/15 Unknown History fluoxetine 20 mg capsule 20 mg PO DAILY 07/15/18 Unknown History simvastatin 20 mg tablet 20 mg PO DAILY 07/15/18 Unknown History gabapentin 300 mg capsule 300 mg PO TID 06/24/24 Unknown History metoprolol succinate 25 mg 12.5 mg PO DAILY 06/24/24 Unknown History tablet,extended release 24 hr trazodone 50 mg tablet 100 mg PO QHS PRN 06/24/24 Unknown History Allergy/AdvReac Type Severity Reaction Status Date / [facility] Allergy li me Verified 06/24/24 15:24 up Penicillins Allergy Itching Verified 06/24/24 15:24 tramadol Allergy Rash Verified 06/24/24 15:24 Family History Sister CAD (coronary artery disease) Heart disease Hypertension Mother Heart disease Hypertension CAD (coronary artery disease) Father Heart disease Hypertension CAD (coronary artery disease) Surgical History S/P appendectomy Social History household members: none Smoking Status: Former smoker how long ago did patient quit smoking: Quit ~ 20 years prior 2003, smoked < 1 ppd since teen until quit. alcohol intake: current alcohol intake frequency: holidays/special occasions only substance use type: does not use Review of Systems (Anesthesia) ROS Narrative System reviewed and no additional complaints, except as documented.
--- NOTE | 2024-06-25 12:00 | COLBX_PTH ---
PATIENT: RAKAN CHIN LOC: [facility] U#:[id number] AGE/SX: 64/F ROOM: [facility] RE06/24/[address]: Dr. Dorothy Topete MD : 1960 BED: 1 DIS: 06/27/2024 SPEC #: [id number] RECD: 06/25/24 13:35 STATUS: MAI STEELE #: [id number] CHEL: 06/25/24 12:[address]: Cheikh Medel DEPT: SURGICAL PATHOLOGY RECD BY: Valarie Puentes ENTERED: 06/28/24 09:41 SP TYPE: COLON BX OTHR DR: MD Dr. Christian Thomson, DO Dr. Dorothy Topete MD Tissues: A - Ileum, NOS B - COLON BIOPSY C - COLON BIOPSY Procedures: Surgery Specimen Level IV Comments: @ Ordering doctor for SUIV edited from to @ by ENEIDA at 06/28/24 1021 @ Submitting doctor edited from to @ by ENEIDA at 06/28/24 1021 HEADER OPERATION: Colonoscopy, biopsy, polypectomy PRE-OP DIAGNOSIS: Colitis TISSUE SUBMITTED: A- Terminal ileum biopsy, B- Random colon biopsy, C- Hepatic flexure polyp MICROSCOPIC DIAGNOSIS A. Terminal ileum, biopsy: No pathologic change. B. Colon, random biopsy: Ischemic colitis. C. Colonic polyp at hepatic flexure, biopsy: Fragments of tubular adenoma. LU/ 06/29/2024 MICROSCOPIC DESCRIPTION Slides are reviewed. GROSS DESCRIPTION A. Received in fixative is one container labeled with the patient's name and designated Terminal ileum. The specimen consists of one irregular fragment of light ely soft tissue that measures 0.4 x 0.3 x 0.1 cm. The specimen is totally submitted in one cassette. B. Received in fixative is one container labeled with the patient's name and designated Random colon biopsy. The specimen consists of multiple irregular fragments of light ely soft tissue that in aggregate measure 1.0 x 0.4 x 0.1 cm. The specimen is totally submitted in one cassette. C. Received in fixative is one container labeled with the patient's name and designated Hepatic flexure polyp. The specimen consists of multiple irregular fragments of light ely soft tissue that in aggregate measure 1.0 x 0.4 x 0.1 cm. The specimen is totally submitted in one cassette. SHAQ/ 06/28/2024 TC:3
[2024-06-25] MEDS: 0.9% Normal Saline (1000mL) 1,000 ML 100 ML IV (12:05)
--- NOTE | 2024-06-25 12:08 | EX.PCM.CON.G ---
HPI Consult Data Date of Consult: 06/25/24 HPI Narrative Reason for Consultation: Abdominal pain and lower GI bleeding HPI Narrative: RAKAN CHIN, is a 64-year-old female with history of hypertension, hypothyroid, hyper lipidemia, type 2 diabetes mellitus and coronary artery disease presenting with left-sided chest pain as well as upper abdominal pain, nausea, dry heaves and diarrhea. Patient notes her symptoms started last night when she was at work (around 1230 or 1 AM). Started with sharp pains in her left lower chest and back that started to radiate down to her abdomen. She has had severe nausea with dry heaves but no actual vomiting. She notes she is also had episodes of diarrhea with denies any blood in her stool. States the pain radiates down to her lower abdomen. She initially felt like she was having a hard time breathing with this but that is improved. She states initially the pain was sharp but has been improving and now she will does have intermittent episodes of sharp pain on her left ribs/chest. She denies any trauma or new injuries. Show she has had a mild tickle in her throat and cough recently. Movement and coughing does make the pain worse. She denies any sick contacts but notes one of her friends at work did leave because of a migraine. She has no known fevers but does feel hot. Has prior history of appendectomy. No other complaints or concerns reported at this time. [facility] Medical History History of COVID-19 Neuropathy Former tobacco use Hypertension Hyperlipidemia Diabetes mellitus, type II Obesity (BMI 30-39.9) Hypothyroidism Home Medications ?Medication ?Instructions ?Recorded ?Last Taken ?Type levothyroxine 112 mcg tablet 137 mcg PO DAILY 12/07/15 Unknown History metformin 850 mg tablet 850 mg PO BIDCM 12/07/15 Unknown History fluoxetine 20 mg capsule 20 mg PO DAILY 07/15/18 Unknown History simvastatin 20 mg tablet 20 mg PO DAILY 07/15/18 Unknown History gabapentin 300 mg capsule 300 mg PO TID 06/24/24 Unknown History metoprolol succinate 25 mg 12.5 mg PO DAILY 06/24/24 Unknown History tablet,extended release 24 hr trazodone 50 mg tablet 100 mg PO QHS PRN 06/24/24 Unknown History Allergy/AdvReac Type Severity Reaction Status Date / Time etodolac (From [facility]) Allergy il me Verified 06/24/24 15:24 up Penicillins Allergy Itching Verified 06/24/24 15:24 tramadol Allergy Rash Verified 06/24/24 15:24 Family History Sister CAD (coronary artery disease) Heart disease Hypertension Mother Heart disease Hypertension CAD (coronary artery disease) Father Heart disease Hypertension CAD (coronary artery disease) Surgical History S/P appendectomy Social History household members: none Smoking Status: Former smoker how long ago did patient quit smoking: Quit ~ 20 years prior 2003, smoked < 1 ppd since teen until quit. alcohol intake: current alcohol intake frequency: holidays/special occasions only substance use type: does not use ROS ROS Narrative Admission Review of Systems: CONSTITUTIONAL: No weight loss, fever, chills, + weakness or fatigue. HEENT: Eyes: No visual loss, blurred vision, double vision or yellow sclerae. Ears, Nose, Throat: No hearing loss, sneezing, congestion, runny nose or sore throat. SKIN: No rash or itching, lesions, wounds. CARDIOVASCULAR: + chest pain. No palpitations, edema, orthopnea, syncopal events. RESPIRATORY: No shortness of breath, cough or sputum, wheezing, hemoptysis. GASTROINTESTINAL: + anorexia, nausea without vomiting but notable dry having, diarrhea, abdominal pain. No melena, BRBPR. GENITOURINARY: No dysuria, frequency, urgency or retention. NEUROLOGICAL: No headache, dizziness, syncope, paralysis, ataxia, numbness or tingling in the extremities, focal weakness, change in bowel or bladder control, seizure. MUSCULOSKELETAL: + muscle, back pain, joint pain or stiffness. HEMATOLOGIC: No anemia, bleeding or bruising. LYMPHATICS: No enlarged nodes. No history of splenectomy. PSYCHIATRIC: + history of depression and anxiety. ENDOCRINOLOGIC: No reports of sweating, cold or heat intolerance. No polyuria or polydipsia. ALLERGIES: No history of asthma, hives, eczema or rhinitis. Physical Exam Narrative Physical Examination: General: Awake, alert, oriented x 3 and cooperative, laying in ED bed, fatigued otherwise no acute distress, denies any current chest discomfort. Skin: Normal color, normal turgor, no icterus, no cyanosis except occasional abrasion. HEENT: AT/NC, EOMI, PERRLA, moderately dry MM, no carotid bruits or JVD noted. Lungs: Mildly diminished, greater bases, poor effort, no rales, ronchi or wheezing. Heart: Regular rate and rhythm; no gallop, rub audible. Abdomen: Soft, obese, generalized discomfort with palpation but no rebound or guarding, nondistended, hyperactive bowel sounds, no appreciated HSM but difficult given pain elicited. Extremities: No cyanosis, clubbing, or edema. Neurological: Patient awake, alert, oriented as noted, cognitive function intact; pupils equally reactive to light and accommodation, cranial nerves grossly normal, moving all 4 extremities, no focal deficits, strength moderately global decrease secondary to acute complaints Psychiatric: Affect appears fatigued, mildly uncomfortable, no acute evidence of depressive or anxiety feelings but does have underlying history. Lab / Micro Data 06/25/24 05:12 06/25/24 05:12 Labs: Laboratory Results - last 24 hr 06/24/24 15:50: WBC 10.9, RBC 4.16 L, Hgb 12.1, Hct 36.5 L, MCV 87.7, MCH 29.1, MCHC 33.2, RDW Std Deviation 40.0, RDW Coeff of Mechelle 12.5, Plt Count 352, MPV 8.9, Immature Gran % (Auto) 0.300, Neut % (Auto) 57.0, Lymph % (Auto) 34.4, [place] % (Auto) 5.9, Eos % (Auto) 2.2, Baso % (Auto) 0.2, Absolute Neuts (auto) 6.2, Absolute Lymphs (auto) 3.73, Nucleated RBC % 0, Sodium 138, Potassium 3.6, Chloride 106, Carbon Dioxide 24.0, Anion Gap 8, BUN 9, Creatinine 0.84, Estim Creat Clear Calc 70.62, Est GFR (MDRD) Af Amer 88, Est GFR (MDRD) Non-Af 73, BUN/Creatinine Ratio 10.7, Glucose 185 H, Calcium 9.0, Phosphorus 2.1 L, Magnesium 1.8, Total Bilirubin 0.40, AST 17, ALT 25, Alkaline Phosphatase 98, Troponin I High Sens < 3 L, Total Protein 7.7, Albumin 3.4, Globulin 4.3 H, Albumin/Globulin Ratio 0.8 L, Lipase 97 H 06/24/24 17:55: Urine Color Yellow, Urine Clarity Clear, Urine pH 7.0, Ur Specific [place] 1.005, Urine Protein Negative, Urine Glucose (UA) Normal, Urine Ketones Negative, Urine Occult Blood Negative, Urine Nitrite Negative, Urine Bilirubin Negative, Urine Urobilinogen Normal, Ur Leukocyte Esterase Negative, Urine RBC 0 SEEN, Urine WBC 0 SEEN, Ur Squamous Epith Cells 0 SEEN, Urine Bacteria 0 SEEN, Urine Mucus 0 SEEN 06/24/24 20:15: Lactic Acid 1.3 06/24/24 21:28: Procalcitonin 0.06 06/24/24 23:05: POC Glucose 149 H 06/24/24 23:15: Troponin I High Sens 4 06/25/24 01:38: Troponin I High Sens 4 06/25/24 04:04: POC Glucose 158 H 06/25/24 05:12: WBC 8.9, RBC 3.73 L, Hgb 10.8 L, Hct 34.0 L, MCV 91.2, MCH 29.0, MCHC 31.8 L, RDW Std Deviation 42.0, RDW Coeff of Mechelle 12.7, Plt Count 287, MPV 9.0, Immature Gran % (Auto) 0.400, Neut % (Auto) 62.2, Lymph % (Auto) 27.3, [place] % (Auto) 6.3, Eos % (Auto) 3.6, Baso % (Auto) 0.2, Absolute Neuts (auto) 5.5, Absolute Lymphs (auto) 2.43, Nucleated RBC % 0, Sodium 140, Potassium 3.4 L, Chloride 109 H, Carbon Dioxide 25.0, Anion Gap 6, BUN 4 L, Creatinine 0.67, Estim Creat Clear Calc 88.32, Est GFR (MDRD) Af Amer 115, Est GFR (MDRD) Non-Af 95, BUN/Creatinine Ratio 6.0 L, Glucose 143 H, Calcium 8.3 L, Total Bilirubin 0.30, AST 17, ALT 19, Alkaline Phosphatase 78, Troponin I High Sens 4, Total Protein 6.7, Albumin 2.9 L, Globulin 3.8, Albumin/Globulin Ratio 0.8 L, Triglycerides 162, Cholesterol 186, LDL Cholesterol 95, VLDL Cholesterol 32, HDL Cholesterol 59 06/25/24 10:07: POC Glucose 137 H Micro: Microbiology 06/25/24 04:00 Stool Stool Lactoferrin - Final 06/25/24 04:00 Stool Enteric Bacteriology - Final 06/25/24 04:00 Stool Clostridioides difficile (PCR) - Final 06/25/24 04:24 Mucosa - Nose Coronavirus COVID-19 PCR - Final 06/24/24 16:22 Nasal Secretion SARS-CoV-2 Antigen (Rapid) - Final Rhythm Strip Rhythm Strip: Sinus Rhythm Rate: 76 Ectopy: None Imaging Radiology Impression Abdomen/Pelvis CT 06/24/24 16:14 IMPRESSION: Colitis of the ascending and transverse colon. Electronically Signed: Geoffrey Mcghee MD at 18:28 EDT , Chest X-Ray 06/24/24 17:24 IMPRESSION: No radiographic evidence of acute cardiopulmonary disease. Electronically Signed: Geoffrey Mcghee MD at 18:20 EDT , Assessment & Plan Assessment/Plan (1) Colitis: PLAN: Plan The patient is a 64 y/o F w/ PMHx: LALY, Anxiety and Depression, Former tobacco use, Hypothyroidism, HTN, HLD, Diabetes mellitus type II who presents to [facility] ED on 06/24/24 with onset of left-sided chest discomfort as well as upper abdominal discomfort . This eventually turned into diarrhea and lower GI bleeding. CT scan shows pretty extensive colitis. Acute colitis of the ascending and transverse colon, possibly infectious, likely ischemic etiology: Also differential diagnosis does include ulcerative colitis, infectious colitis. Patient should have an SARAH, ANCA, ESR, CRP, JANICE plus protein electrophoresis, IBD SGI and undergo colonoscopy with biopsies. Charges/Coding Visit Charges Inpatient E&M: 62603 Init Hosp L2
--- NOTE | 2024-06-25 12:14 | OP.CCLET_ITS ---
06/25/2024 Christian Bowles [address] [place] [address] Re : Colonoscopy procedure for Jn Chavez Dear Dr. Bowles This procedure was performed on Tuesday, June 25, 2024. My impressions and recommendations are as follows: Impressions : - One 7 mm polyp at the hepatic flexure, removed with a cold snare. Resected and retrieved. - Segmental severe inflammation was found at the splenic flexure, in the transverse colon, at the hepatic flexure, in the ascending colon and in the cecum secondary to ischemic colitis. Biopsied. Recommendations : - Discharge patient to home. - Resume previous diet. - Continue present medications. - Await pathology results. - Repeat colonoscopy in 5 years for surveillance. My findings are described in the full procedure note, which is enclosed. If I can be of further assistance, please feel free to contact me at . Sincerely, Cheikh Medel, 06/25/2024 12:14:09 PM This report has been signed electronically.
--- NOTE | 2024-06-25 12:14 | OP.COLON_ITS ---
Patient Name: Jn Chavez Procedure Date: 06/25/2024 11:33 AM Date of : 1960 Age: 64 Procedure: Colonoscopy Indications: Abdominal pain in the right lower quadrant, Clinically significant diarrhea of unexplained origin, Hematochezia Providers: Cheikh Medel DO Medicines: Monitored Anesthesia Care Patient Profile: This is a 64 year old female. Refer to note in patient chart for documentation of history and physical. Last Colonoscopy: date unknown. Unable to locate last colonoscopy report. Complications: No immediate complications. Procedure: Pre-Anesthesia Assessment: - Prior to the procedure, a History and Physical was performed, and patient medications and allergies were reviewed. The patient is competent. The risks and benefits of the procedure and the sedation options and risks were discussed with the patient. All questions were answered and informed consent was obtained. Patient identification and proposed procedure were verified by the physician in the pre-procedure area. Mental Status Examination: alert and oriented. Airway Examination: normal oropharyngeal airway and neck mobility. Respiratory Examination: clear to auscultation. CV Examination: normal. Prophylactic Antibiotics: The patient does not require prophylactic antibiotics. Prior Anticoagulants: The patient has taken no anticoagulant or antiplatelet agents. ASA Grade Assessment: II - A patient with mild systemic disease. After reviewing the risks and benefits, the patient was deemed in satisfactory condition to undergo the procedure. The anesthesia plan was to use monitored anesthesia care (MAC). Immediately prior to administration of medications, the patient was re-assessed for adequacy to receive sedatives. The heart rate, respiratory rate, oxygen saturations, blood pressure, adequacy of pulmonary ventilation, and response to care were monitored throughout the procedure. The physical status of the patient was re-assessed after the procedure. After I obtained informed consent, the scope was passed under direct vision. Throughout the procedure, the patient's blood pressure, pulse, and oxygen saturations were monitored continuously. The was introduced through the anus and advanced to the terminal ileum. The colonoscopy was performed without difficulty. The patient tolerated the procedure well. The quality of the bowel preparation was adequate. The terminal ileum, ileocecal valve, appendiceal orifice, and rectum were photographed. Scope In: 11:50:45 AM Scope Withdrawal Time 0 hours 9 minutes 23 seconds Scope Out: 12:04:20 PM Total Procedure Duration Time 0 hours 13 minutes 35 seconds Findings: The perianal and digital rectal examinations were normal. A 7 mm polyp was found in the hepatic flexure. The polyp was sessile. The polyp was removed with a cold snare. Resection and retrieval were complete. Verification of patient identification for the specimen was done. Estimated blood loss was minimal. Segmental severe inflammation characterized by altered vascularity, angiodysplasia, erosions, erythema, friability, granularity and linear erosions was found at the splenic flexure, in the transverse colon, at the hepatic flexure, in the ascending colon and in the cecum. Biopsies were taken with a cold forceps for histology. Verification of patient identification for the specimen was done. Estimated blood loss was minimal. Impression: - One 7 mm polyp at the hepatic flexure, removed with a cold snare. Resected and retrieved. - Segmental severe inflammation was found at the splenic flexure, in the transverse colon, at the hepatic flexure, in the ascending colon and in the cecum secondary to ischemic colitis. Biopsied. Recommendation: - Discharge patient to home. - Resume previous diet. - Continue present medications. - Await pathology results. - Repeat colonoscopy in 5 years for surveillance. Procedure Code(s): --- Professional --- 96954, Colonoscopy, flexible; with removal of tumor(s), polyp(s), or other lesion(s) by snare technique 93414, 59, Colonoscopy, flexible; with biopsy, single or multiple CPT copyright 2021 [employer]. All rights reserved. The codes documented in this report are preliminary and upon backend python developer review may be revised to meet current compliance requirements. Cheikh Medel DO 06/25/2024 12:14:09 PM This report has been signed electronically. Number of Addenda: 0 Note Initiated On: 06/25/2024 11:33 AM
--- NOTE | 2024-06-25 12:14 | PCM.POST.ANE ---
Anesthesia: Postop Eval I Current Vital Signs Temperature: 97.5 F Pulse Rate: 82 Blood Pressure: 125/60 Respiratory Rate: 16 Pulse Ox: 99 Oxygen Delivery Method: Room Air Assessment Airway patent: Yes Spontaneous unlabored respirations: Yes Mental status: Awake and Calm nausea: No Vomiting: No Anesthesia Complication: No Fluid Hydration Crystalloid volume administer (ml): 600 Total IV fluid infused: 600 Progress Note Anesthesia document: Postop Eval 1 completed: Yes
--- NOTE | 2024-06-25 12:16 | PCM.POSTANE2 ---
Anesthesia Postop Eval I Sum Postop Eval Completion status Anesthesia document: Postop Eval 1 completed: Yes Anesthesia Postop Eval I Summary Anesthesia Postop Eval I Summary: Anesthesia Postop Eval I: Assessment Summary Airway patent Yes 06/25/24 12:15 [email or web address] Spontaneous unlabored Yes 06/25/24 12:15 [email or web address] respirations Mental status Awake,Calm 06/25/24 12:15 [email or web address] nausea No 06/25/24 12:15 [email or web address] Vomiting No 06/25/24 12:15 [email or web address] Anesthesia Postop Eval I: Fluid Summary Crystalloid volume administer 600 06/25/24 12:15 [email or web address] (ml) Colloids volume administered ( ml) Blood Product volume administered (ml) Total IV fluid infused 600 06/25/24 12:15 [email or web address] Anesthesia Postop Eval I: Summary Notes Anesthesia Complication No 06/25/24 12:15 [email or web address] Anesthesia Complication Comment: Post-operative progress note Anesthesia: Postop Eval II Evaluation Mental status: Awake Pain Level: 0 nausea: No Vomiting: No
[2024-06-25] MEDS: Ciprofloxacin 400 MG/200 ML BAG 200 MG IV ×2 (13:19→23:53)
[2024-06-25] MEDS: Lactobacillis Acidophilus 1 CAP PO (13:26)
[2024-06-25] MEDS: Metoprolol(XL)Succ 25 MG Tablet 12.5 MG PO (13:26)
[2024-06-25] MEDS: FLUoxetine 20 MG Capsule PO (13:26)
[2024-06-25 14:14] LABS: LDH 157 U/L (84-246)
[2024-06-25 14:24] LABS: Erythrocyte Sedimentation Rate 29 mm/hr (0-30)
--- NOTE | 2024-06-25 14:49 | PN_ITS ---
Subjective Subjective Patient seen and examined. She was admitted with a complaint of left upper quadrant and left flank pain. Imaging done showed evidence of colitis. She has been managed for colitis. Patient denies that it was chest pain and points to her left upper quadrant and left flank. She still states she has the pain but it has improved a bit. She denies any fever or chills, palpitations, dizziness, nausea or vomiting or any other symptoms. She is currently n.p.o. with plans for flexible sigmoidoscopy by GI today. Objective Data Objective Data Vital Signs: Vital Signs Temp Pulse Resp BP Pulse Ox O2 Del Method 97 F L 75 17 149/71 H 97 Room Air 06/25/24 14:03 06/25/24 14:03 06/25/24 14:03 06/25/24 14:03 06/25/24 14:03 06/25/24 14:03 Oxygen Delivery Method Room Air Weight: 188 lb 7.924 oz Body Mass Index (BMI) 33.9 Intake & Output: Intake and Output for Last 24 Hours 06/23/24 06/24/24 06/25/24 23:59 23:59 23:59 Intake Total 1350 / 1350 1320 / 1320 Balance 1350 / 1350 1320 / 1320 Lab / Micro Data 06/25/24 05:12 06/25/24 05:12 Labs: Laboratory Results - last 24 hr 06/24/24 15:50: WBC 10.9, RBC 4.16 L, Hgb 12.1, Hct 36.5 L, MCV 87.7, MCH 29.1, MCHC 33.2, RDW Std Deviation 40.0, RDW Coeff of Mechelle 12.5, Plt Count 352, MPV 8.9, Immature Gran % (Auto) 0.300, Neut % (Auto) 57.0, Lymph % (Auto) 34.4, [place] % (Auto) 5.9, Eos % (Auto) 2.2, Baso % (Auto) 0.2, Absolute Neuts (auto) 6.2, Absolute Lymphs (auto) 3.73, Nucleated RBC % 0, Sodium 138, Potassium 3.6, Chloride 106, Carbon Dioxide 24.0, Anion Gap 8, BUN 9, Creatinine 0.84, Estim Creat Clear Calc 70.62, Est GFR (MDRD) Af Amer 88, Est GFR (MDRD) Non-Af 73, BUN/Creatinine Ratio 10.7, Glucose 185 H, Calcium 9.0, Phosphorus 2.1 L, Magnesium 1.8, Total Bilirubin 0.40, AST 17, ALT 25, Alkaline Phosphatase 98, T roponin I High Sens < 3 L, Total Protein 7.7, Albumin 3.4, Globulin 4.3 H, A lbumin/Globulin Ratio 0.8 L, Lipase 97 H 06/24/24 17:55: Urine Color Yellow, Urine Clarity Clear, Urine pH 7.0, Ur Specific [place] 1.005, Urine Protein Negative, Urine Glucose (UA) Normal, Urine Ketones Negative, Urine Occult Blood Negative, Urine Nitrite Negative, Urine Bilirubin Negative, Urine Urobilinogen Normal, Ur Leukocyte Esterase Negative, Urine RBC 0 SEEN, Urine WBC 0 SEEN, Ur Squamous Epith Cells 0 SEEN, Urine Bacteria 0 SEEN, Urine Mucus 0 SEEN 06/24/24 20:15: Lactic Acid 1.3 06/24/24 21:28: Procalcitonin 0.06 06/24/24 23:05: POC Glucose 149 H 06/24/24 23:15: Troponin I High Sens 4 06/25/24 01:38: Troponin I High Sens 4 06/25/24 04:04: POC Glucose 158 H 06/25/24 05:12: WBC 8.9, RBC 3.73 L, Hgb 10.8 L, Hct 34.0 L, MCV 91.2, MCH 29.0, MCHC 31.8 L, RDW Std Deviation 42.0, RDW Coeff of Mechelle 12.7, Plt Count 287, MPV 9.0, Immature Gran % (Auto) 0.400, Neut % (Auto) 62.2, Lymph % (Auto) 27.3, [place] % (Auto) 6.3, Eos % (Auto) 3.6, Baso % (Auto) 0.2, Absolute Neuts (auto) 5.5, Absolute Lymphs (auto) 2.43, Nucleated RBC % 0, Sodium 140, Potassium 3.4 L, C hloride 109 H, Carbon Dioxide 25.0, Anion Gap 6, BUN 4 L, Creatinine 0.67, Estim Creat Clear Calc 88.32, Est GFR (MDRD) Af Amer 115, Est GFR (MDRD) Non-Af 95, B UN/Creatinine Ratio 6.0 L, Glucose 143 H, Calcium 8.3 L, Total Bilirubin 0.30, AST 17, ALT 19, Alkaline Phosphatase 78, Troponin I High Sens 4, Total Protein 6.7, Albumin 2.9 L, Globulin 3.8, Albumin/Globulin Ratio 0.8 L, Triglycerides 162, Cholesterol 186, LDL Cholesterol 95, VLDL Cholesterol 32, HDL Cholesterol 59 06/25/24 10:07: POC Glucose 137 H 06/25/24 13:15: ESR 29, Lactate Dehydrogenase 157, C-React Prot Ext Range 36.30 H Micro: Microbiology 06/25/24 04:00 Stool Stool Lactoferrin - Final 06/25/24 04:00 Stool Enteric Bacteriology - Final 06/25/24 04:00 Stool Clostridioides difficile (PCR) - Final 06/25/24 04:24 Mucosa - Nose Coronavirus COVID-19 PCR - Final 06/24/24 16:22 Nasal Secretion SARS-CoV-2 Antigen (Rapid) - Final Radiography Diagnostic Testing: Radiology Impression Abdomen/Pelvis CT 06/24/24 16:14 IMPRESSION: Colitis of the ascending and transverse colon. Electronically Signed: Geoffrey Mcghee MD at 18:28 EDT , Chest X-Ray 06/24/24 17:24 IMPRESSION: No radiographic evidence of acute cardiopulmonary disease. Electronically Signed: Geoffrey Mcghee MD at 18:20 EDT , Rhythm Strip Rhythm Strip: Sinus Rhythm Rate: 76 Ectopy: None Physical Exam Const alert, oriented x3, no apparent distress and well nourished General Appearance: cooperative and well developed HEENT normocephalic, head/scalp atraumatic, moist oral mucous membranes and oropharynx normal Eyes PERRL and EOMs intact bilaterally Neck no lymphadenopathy, supple and no JVD Lymph Lymphatic: no lymphadenopathy noted and no lymphedema noted Resp normal respiratory effort, normal air movement and clear to auscultation bilaterally Cardio regular rate, regular rhythm, S1 normal heart sound, S2 normal heart sound and no murmurs GI normal to inspection, nondistended, normoactive bowel sounds GI Narrative: Soft, mild tenderness in the left upper quadrant and left flank regions. No guarding or rebound tenderness. Extremity normal capillary refill, no clubbing, cyanosis or edema and no calf tenderness General Extremity: no tenderness to palpation of joints or extremities Skin General Skin Exam: no breakdown Neuro CN's II-XII intact bilaterally, no focal motor deficits, no sensory deficits noted and deep tendon reflexes 2+ bilaterally Motor Exam: strength 5/5 throughout and general weakness Psych thought process normal, cooperative and affect normal Appearance: appropriate Assessment & Plan Assessment/Plan (1) Colitis: PLAN: Plan #Acute colitis * Still having mild left upper quadrant and left flank pain. Imaging of the abdomen done showed colitis of the ascending and transverse colon. Chest x- ray showed no acute cardiopulmonary pathology. * She is currently on IV Zosyn. * Currently NPO. Continue hydration with IV fluids. On IV PPI * On IV morphine and Zofran as needed * GI on board. For flexible sigmoidoscopy today. #??Chest pain: * Patient denies having any chest pain whatsoever and says that his symptoms were due to the left upper flank pain * Troponins were negative. Will hold off on any further workup for chest pain. 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 AccuChecks ACHS. #Anxiety depression: On fluoxetine and trazodone #Hypertension: On metoprolol. #Hyperlipidemia: On statin #Hypothyroidism: On Synthroid DVT prophylaxis: SCDs. Charges/Coding Visit Charges Inpatient E&M: 37773 Subs Hosp L2
--- NOTE | 2024-06-25 14:58 | CASEMGMT ---
RN AAKASH [address] LIGHT AAKASH?to room to meet with patient for initial transition planning/care coordination assessment. RN AAKASH?introduced self and role at [facility]. Pt voices understanding and consents to assessment?at this time. Pt resting in bed in no distress at this time. Pt is A/O at this time and answers all questions appropriately. Care providers, pharmacy, and demographics verified/updated at this time. Strata:?2 PCP: Dr Bowles Specialists: none Preferred Pharmacy: [facility] [place] Insurance: [facility] [place] Living Will/HPOA:Pt does not currently have LW/HCPOA. Pt made aware that she can contact SW as an out-pt and make appt in the future if she decides she would like to talk with someone about this or would like to utilize [facility] social work for advanced directive completion. Pt expresses understanding. LNOK: 4 children: Renzo Wang, Gideon Griffin Living Arrangements: Pt lives w/her son, Felipe, in 1st-floor apt w/no steps to enter. Pt is independent w/ADL's. Her and Felipe both go grocery shopping and share home mgnt tasks. Pt manages her own medications. Transportation:?Pt states drives self and states no transportation concerns at this time. Dtr, Gaby, will take her home @ [place]. DME: has the following DME: Pt has a glucometer she bought OTC and states is short on strips, but can purchase them. She would like a script for a glucometer and supplies to get through her insurance. [employer] CM, Elda, made aware. Pt states no need for further DME at this time. HHC/SNF: No hx of either. Pt denies need for HHC or CCN. Pt wishes to return home and states has no concerns with going home at time of discharge. PLAN: Home Pt to be given script for glucometer @ [facility]. Alexa DESAI RN, CM
[2024-06-25 17:06] LABS: Bedside Glucose 136 mg/dL (74-106)
[2024-06-25] MEDS: Atorvastatin Calcium 10 MG Tablet PO (21:21)
[2024-06-25] MEDS: Insulin Lispro 100 UNIT/ML INSULN.PEN SC (21:30)
[2024-06-25] MEDS: traZODone 100 MG Tablet PO (22:31)
[2024-06-26] VITALS (7 sets, daily range): BP systolic 96–123; BP diastolic 58–71; PULSE 70–76; RESP 18; TEMP 36.4–36.6; O2SAT 86–96; BMI 35.3
[2024-06-26 03:26] LABS: Bedside Glucose 201 mg/dL (74-106)
[2024-06-26] MEDS: Levothyroxine 137 MCG Tablet PO (04:39)
[2024-06-26] MEDS: oxyCODONE 5 MG Tablet PO ×5 (04:39→22:00)
[2024-06-26] MEDS: metroNIDAZOLE 500 MG/100 ML BAG 100 MG IV ×3 (04:42→20:37)
[2024-06-26 06:46] LABS: Absolute Lymphocyte Count 2.74 X10^3/uL (0.83-4.51); Absolute Neutrophil Count 6.4 X10^3/uL (2.0-7.7); Basophil# 0.02 X10^3/uL; Basophil% 0.2 % (0-1); Eosinophil# 0.31 X10^3/uL; Eosinophils% 3.1 % (0-5); Hematocrit 34.1 % (37-47); Hemoglobin 10.7 g/dL (12.0-15.0); Lymphocyte # 2.74 X10^3/ul (0.83-4.51); Lymphocyte % 27.1 % (19-41); Mean Corp Hgb Conc 31.4 g/dL (32-36); Mean Corpuscular Hgb 28.7 pg (27.0-32.0); Mean Corpuscular Volume 91.4 fL (81-99); Mean Platelet Vol. 9.3 fl (6.2-12.0); Monocyte# 0.58 X10^3/uL; Monocyte% 5.7 % (0-10); NRBC Flagged by Analyzer 0 % (0-5); Neutrophil # 6.41 X10^3/uL (2.7-7.7); Neutrophil % 63.5 % (47-70); Platelet Count 308 K/mm3 (150-450); RBC Distribution Width SD 43.7 fl (35.1-43.9); Red Blood Count 3.73 M/mm3 (4.2-5.4); White Blood Count 10.1 K/mm3 (4.4-11.0)
[2024-06-26 07:23] LABS: Anion Gap 6 (5-15); BUN 4 mg/dL (7-18); BUN/Creat Ratio 4.3 RATIO (10-20); Calcium,Total 8.3 mg/dL (8.5-10.1); Chloride 109 mmol/L (98-107); Creatinine, Serum 0.92 mg/dL (0.55-1.02); EST Glomerular Filtration Rate 66 mL/min (>60); Est Glom Filt Rate - Afr Amer 79 mL/min (>60); Estimated Creatinine Clearance 65.88 ml/min; Glucose 159 mg/dL (74-106); Potassium 3.4 mmol/L (3.5-5.1); Sodium Level 140 mmol/L (136-145)
[2024-06-26] MEDS: Glucerna Shake 120 ML LIQUID PO ×2 (08:25→20:49)
[2024-06-26] MEDS: FLUoxetine 20 MG Capsule PO (08:26)
[2024-06-26] MEDS: Lactobacillis Acidophilus 1 CAP PO (08:26)
[2024-06-26] MEDS: Metoprolol(XL)Succ 25 MG Tablet 12.5 MG PO (08:26)
[2024-06-26] MEDS: Pantoprazole Sodium 40 MG in 0.9% Normal Saline (100mL MB+) 100 ML 330 MG IV ×2 (08:46→19:40)
[2024-06-26 08:51] LABS: Bedside Glucose 117 mg/dL (74-106)
[2024-06-26] MEDS: Ciprofloxacin 400 MG/200 ML BAG 200 MG IV ×2 (09:48→21:59)
[2024-06-26 11:20] LABS: Bedside Glucose 125 mg/dL (74-106)
--- NOTE | 2024-06-26 11:45 | DS.PCM_ITS ---
Providers Date of Admission: 06/24/24 Primary Care Physician: Dr. Christian Bowles, DO Consultations 06/24/24 22:00 Consult: Gastroenterology Routine Consulting Provider: [facility] Reason for Consult: Colitis EMERGENT Consult: No MD Notified: Yes Date Notified: 06/24/24 Time Notified: 20:49 Method of Notification: ED Physician Initiated Reason For Visit: COLITIS,CHEST PAIN Diagnosis Discharge Diagnosis (1) Colitis: Status: Acute Code(s): K52.9 - Noninfective gastroenteritis and colitis, unspecified Plan #Acute colitis * Still having mild left upper quadrant and left flank pain. Imaging of the abdomen done showed colitis of the ascending and transverse colon. Chest x- ray showed no acute cardiopulmonary pathology. * She is currently on IV Zosyn. * Currently NPO. Continue hydration with IV fluids. On IV PPI * On IV morphine and Zofran as needed * GI on board. For flexible sigmoidoscopy today. #??Chest pain: * Patient denies having any chest pain whatsoever and says that his symptoms were due to the left upper flank pain * Troponins were negative. Will hold off on any further workup for chest pain. 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 AccuChecks ACHS. #Anxiety depression: On fluoxetine and trazodone #Hypertension: On metoprolol. #Hyperlipidemia: On statin #Hypothyroidism: On Synthroid DVT prophylaxis: SCDs. Medications at Discharge Home Medications levothyroxine 112 mcg tablet 137 mcg PO DAILY 12/07/15 metformin 850 mg tablet 850 mg PO BIDCM 12/07/15 fluoxetine 20 mg capsule 20 mg PO DAILY 07/15/18 simvastatin 20 mg tablet 20 mg PO DAILY 07/15/18 gabapentin 300 mg capsule 300 mg PO TID 06/24/24 metoprolol succinate 25 mg tablet,extended release 24 hr 12.5 mg PO DAILY 06/24/24 trazodone 50 mg tablet 100 mg PO QHS PRN 06/24/24 ciprofloxacin HCl 500 mg tablet 500 mg PO Q12H #10 tabs 06/26/24 metronidazole 500 mg tablet 500 mg PO Q8H #15 tabs 06/26/24 oxycodone 5 mg tablet 5 mg PO Q6H PRN pain 3 days #12 tabs 06/26/24 Weight / BMI Weight Weight: 197 lb 1.492 oz Body Mass Index (BMI) 35.3 ABG / Lab / Microbiology Data 06/26/24 06:22 06/26/24 06:22 Laboratory: Laboratory Results - last 24 hr 06/25/24 13:15: ESR 29, Lactate Dehydrogenase 157, C-React Prot Ext Range 36.30 H 06/25/24 16:47: POC Glucose 136 H 06/25/24 21:24: POC Glucose 201 H 06/26/24 04:42: POC Glucose 125 H 06/26/24 06:22: WBC 10.1, RBC 3.73 L, Hgb 10.7 L, Hct 34.1 L, MCV 91.4, MCH 28.7, MCHC 31.4 L, RDW Std Deviation 43.7, RDW Coeff of Mechelle 13.0, Plt Count 308, MPV 9.3, Immature Gran % (Auto) 0.400, Neut % (Auto) 63.5, Lymph % (Auto) 27.1, [place] % (Auto) 5.7, Eos % (Auto) 3.1, Baso % (Auto) 0.2, Absolute Neuts (auto) 6.4, Absolute Lymphs (auto) 2.74, Nucleated RBC % 0, Sodium 140, Potassium 3.4 L , Chloride 109 H, Carbon Dioxide 25.0, Anion Gap 6, BUN 4 L, Creatinine 0.92, Estim Creat Clear Calc 65.88, Est GFR (MDRD) Af Amer 79, Est GFR (MDRD) Non-Af 66, BUN/Creatinine Ratio 4.3 L, Glucose 159 H, Calcium 8.3 L 06/26/24 08:22: POC Glucose 117 H Microbiology: Microbiology 06/25/24 04:00 Stool Stool Lactoferrin - Final 06/25/24 04:00 Stool Enteric Bacteriology - Final 06/25/24 04:00 Stool Clostridioides difficile (PCR) - Final 06/25/24 04:24 Mucosa - Nose Coronavirus COVID-19 PCR - Final 06/24/24 16:22 Nasal Secretion SARS-CoV-2 Antigen (Rapid) - Final D/C Instructions Discharge Diet: Low fat / Low cholesterol Weight Bearing Status: Weight bearing as tolerated Call your doctor if you observe: Fever of 101 or Higher, Shortness of breath and Uncontrolled pain Meaningful Use Info Ischemic Stroke Statin Dosing Therapy Reference: STATIN DOSE THERAPY REFERENCE: * Patients > 75 years receive moderate or high dose statin therapy. * Patients 75 years or YOUNGER should receive HIGH intensity statin dose unless contraindicated. You will be required to document reason for non-treatment if statin daily dose does not meet guidelines. HIGH DOSE STATIN THERAPY DAILY Atorvastatin > than or = to 40 mg Rosuvastatin > than or = to 20 mg Amlodipine + Atorvastatin > than or = to 2.5/40 mg Ezetimibe + Simvastatin 10/80 mg Simvastatin 80mg Discharge Plan Admission Admit Date/Time: 06/24/24 20:47 Primary Reason for Your Visit: acute ischemic colitis Attending Provider: Dorothy Topete Primary Care Provider: Christian Bowles Consulting Providers: Kenyatta Salter Instructions Patient Instructions: Ischemic Colitis Discharge Orders/Prescriptions Prescriptions: New ciprofloxacin HCl 500 mg tablet 500 mg PO Q12H Qty: 10 0RF metronidazole 500 mg tablet 500 mg PO Q8H Qty: 15 0RF oxycodone 5 mg tablet 5 mg PO Q6H PRN (Reason: pain) 3 Days Qty: 12 0RF Continued metformin 850 MG tablet 850 mg PO BIDCM levothyroxine 112 MCG tablet 137 mcg PO DAILY simvastatin 20 tablet 20 mg PO DAILY Patient Comments: fluoxetine 20 MG capsule 20 mg PO DAILY trazodone 50 mg tablet 100 mg PO QHS PRN metoprolol succinate 25 mg tablet extended release 24 hr 12.5 mg PO DAILY gabapentin 300 mg capsule 300 mg PO TID Referrals / Follow Up: Christian Bowles DO [Primary Care Provider] - Within 2 Weeks Disposition Disposition (needs filled in before D/C Order can be placed): Home, Self Care
--- NOTE | 2024-06-26 11:45 | DCINST_ITS ---
Discharge Instructions Diet Discharge Diet: Low fat / Low cholesterol Activity Discharge Activity: Return to Normal Activity Weight Bearing Status: Weight bearing as tolerated Dressing / Incision Call your doctor if you observe: Fever of 101 or Higher, Shortness of breath and Uncontrolled pain Follow Up Care Test Results: Test results from this visit will be discussed in further detail at your follow- up appointment, if applicable. Discharge Plan Admission Admit Date/Time: 06/24/24 20:47 Primary Reason for Your Visit: acute ischemic colitis Attending Provider: Dorothy Topete Primary Care Provider: Christian Bowles Consulting Providers: Kenyatta Salter Instructions Patient Instructions: Ischemic Colitis Discharge Orders/Prescriptions Prescriptions: New ciprofloxacin HCl 500 mg tablet 500 mg PO Q12H Qty: 10 0RF metronidazole 500 mg tablet 500 mg PO Q8H Qty: 15 0RF oxycodone 5 mg tablet 5 mg PO Q6H PRN (Reason: pain) 3 Days Qty: 12 0RF Continued metformin 850 MG tablet 850 mg PO BIDCM levothyroxine 112 MCG tablet 137 mcg PO DAILY simvastatin 20 tablet 20 mg PO DAILY Patient Comments: fluoxetine 20 MG capsule 20 mg PO DAILY trazodone 50 mg tablet 100 mg PO QHS PRN metoprolol succinate 25 mg tablet extended release 24 hr 12.5 mg PO DAILY gabapentin 300 mg capsule 300 mg PO TID Referrals / Follow Up: Christian Bowles DO [Primary Care Provider] - Within 2 Weeks Disposition Disposition (needs filled in before D/C Order can be placed): Home, Self Care
[2024-06-26] MEDS: Insulin Lispro 100 UNIT/ML INSULN.PEN SC ×2 (12:23→17:05)
[2024-06-26 12:43] LABS: Bedside Glucose 151 mg/dL (74-106)
--- NOTE | 2024-06-26 14:09 | PCM.PROGNOTE ---
Subjective Subjective Patient seen and examined. She had colonoscopy yesterday. which showed evidence of ischemic colitis. She was started on a diet,and says she was able to tolerate her breakfast this morning, but still had some abdominal pain. She ate her lunch was unable to tolerate that either. Objective Data Objective Data Vital Signs: Vital Signs Temp Pulse Resp BP Pulse Ox O2 Del Method O2 Flow Rate 97.7 F L 76 18 96/58 L 96 Nasal Cannula 2 06/26/24 13:30 06/26/24 13:30 06/26/24 13:30 06/26/24 13:30 06/26/24 13:30 06/26/24 13:30 06/26/24 13:30 Oxygen Flow Rate (L/min) 2 Oxygen Delivery Method Nasal Cannula Weight: 197 lb 1.492 oz Body Mass Index (BMI) 35.3 Intake & Output: Intake and Output for Last 24 Hours 06/24/24 06/25/24 06/26/24 23:59 23:59 23:59 Intake Total 1350 / 1350 2570 / 2570 970 / 970 Balance 1350 / 1350 2570 / 2570 970 / 970 Lab / Micro Data 06/26/24 06:22 06/26/24 06:22 Labs: Laboratory Results - last 24 hr 06/25/24 13:15: ESR 29, Lactate Dehydrogenase 157, C-React Prot Ext Range 36.30 H 06/25/24 16:47: POC Glucose 136 H 06/25/24 21:24: POC Glucose 201 H 06/26/24 04:42: POC Glucose 125 H 06/26/24 06:22: WBC 10.1, RBC 3.73 L, Hgb 10.7 L, Hct 34.1 L, MCV 91.4, MCH 28.7, MCHC 31.4 L, RDW Std Deviation 43.7, RDW Coeff of Mechelle 13.0, Plt Count 308, MPV 9.3, Immature Gran % (Auto) 0.400, Neut % (Auto) 63.5, Lymph % (Auto) 27.1, [place] % (Auto) 5.7, Eos % (Auto) 3.1, Baso % (Auto) 0.2, Absolute Neuts (auto) 6.4, Absolute Lymphs (auto) 2.74, Nucleated RBC % 0, Sodium 140, Potassium 3.4 L, Chloride 109 H, Carbon Dioxide 25.0, Anion Gap 6, BUN 4 L, Creatinine 0.92, Estim Creat Clear Calc 65.88, Est GFR (MDRD) Af Amer 79, Est GFR (MDRD) Non-Af 66, BUN/Creatinine Ratio 4.3 L, Glucose 159 H, Calcium 8.3 L 06/26/24 08:22: POC Glucose 117 H 06/26/24 12:22: POC Glucose 151 H Micro: Microbiology 06/25/24 04:00 Stool Stool Lactoferrin - Final 06/25/24 04:00 Stool Enteric Bacteriology - Final 06/25/24 04:00 Stool Clostridioides difficile (PCR) - Final 06/25/24 04:24 Mucosa - Nose Coronavirus COVID-19 PCR - Final 06/24/24 16:22 Nasal Secretion SARS-CoV-2 Antigen (Rapid) - Final Rhythm Strip Rhythm Strip: Sinus Rhythm Rate: 76 Ectopy: None Physical Exam Const alert, oriented x3, no apparent distress and well nourished General Appearance: cooperative and well developed HEENT normocephalic, head/scalp atraumatic, moist oral mucous membranes and oropharynx normal Eyes PERRL and EOMs intact bilaterally Neck no lymphadenopathy, supple and no JVD Lymph Lymphatic: no lymphadenopathy noted and no lymphedema noted Resp normal respiratory effort, normal air movement and clear to auscultation bilaterally Cardio regular rate, regular rhythm, S1 normal heart sound, S2 normal heart sound and no murmurs GI normal to inspection, nondistended, normoactive bowel sounds GI Narrative: mild generalised tenderness, no guarding or rebound tenderness. Extremity normal capillary refill, no clubbing, cyanosis or edema and no calf tenderness General Extremity: no tenderness to palpation of joints or extremities Skin General Skin Exam: no breakdown Neuro CN's II-XII intact bilaterally, no focal motor deficits, no sensory deficits noted and deep tendon reflexes 2+ bilaterally Motor Exam: strength 5/5 throughout and general weakness Psych thought process normal, cooperative and affect normal Appearance: appropriate Assessment & Plan Assessment/Plan (1) Colitis: PLAN: Plan #Acute colitis Still having mild left upper quadrant and left flank pain. Imaging of the abdomen done showed colitis of the ascending and transverse colon. Chest x-ray showed no acute cardiopulmonary pathology. She is currently on IV Zosyn. Had colonoscopy which showed extensive ischemic colitis of the splenic flexure, transverse colon and hepatic flexure and in the descending colon and in the cecum secondary to ischemic colitis. She is having a bit of abdominal pain with diet today. Will continue IV morphine and Zofran. Continue IV ciprofloxacin and metronidazole. Cut back to full liquid diet. For likely discharge tomorrow. #??Chest pain: Patient denies having any chest pain whatsoever and says that his symptoms were due to the left upper flank pain Troponins were negative. Will hold off on any further workup for chest pain. 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 AccuChecks ACHS. #Anxiety depression: On fluoxetine and trazodone #Hypertension: On metoprolol. #Hyperlipidemia: On statin #Hypothyroidism: On Synthroid DVT prophylaxis: SCDs. Disposition: For likely discharge tomorrow. Charges/Coding Visit Charges Inpatient E&M: 62569 Subs Hosp L2
[2024-06-26] MEDS: 0.9% Normal Saline (1000mL) 1,000 ML 125 ML IV (15:03)
[2024-06-26 17:25] LABS: Bedside Glucose 158 mg/dL (74-106)
[2024-06-26] MEDS: Atorvastatin Calcium 10 MG Tablet PO (20:49)
[2024-06-26] MEDS: traZODone 100 MG Tablet PO (20:49)
[2024-06-26] MEDS: Morphine 2 MG/ML Syringe IV (20:53)
[2024-06-26] MEDS: 0.9% Saline Lock 10 ML Syringe IV (20:54)
--- NOTE | 2024-06-26 21:37 | PN.GI_ITS ---
Subjective Subjective Patient is doing well. Objective Data Objective Data Vital Signs: Vital Signs Temp Pulse Resp BP Pulse Ox O2 Del Method O2 Flow Rate 97.5 F L 70 18 123/63 H 94 Room Air 2 06/26/24 20:42 06/26/24 20:42 06/26/24 20:42 06/26/24 20:42 06/26/24 20:42 06/26/24 20:42 06/26/24 13:30 Oxygen Flow Rate (L/min) 2 Oxygen Delivery Method Room Air Weight: 197 lb 1.492 oz Body Mass Index (BMI) 35.3 Intake & Output: Intake and Output for Last 24 Hours 06/24/24 06/25/24 06/26/24 23:59 23:59 23:59 Intake Total 1350 / 1350 2570 / 2570 3123.75 / 3123.75 Balance 1350 / 1350 2570 / 2570 3123.75 / 3123.75 Lab / Micro Data 06/26/24 06:22 06/26/24 06:22 Labs: Laboratory Results - last 24 hr 06/25/24 21:24: POC Glucose 201 H 06/26/24 04:42: POC Glucose 125 H 06/26/24 06:22: WBC 10.1, RBC 3.73 L, Hgb 10.7 L, Hct 34.1 L, MCV 91.4, MCH 28.7, MCHC 31.4 L, RDW Std Deviation 43.7, RDW Coeff of Mechelle 13.0, Plt Count 308, MPV 9.3, Immature Gran % (Auto) 0.400, Neut % (Auto) 63.5, Lymph % (Auto) 27.1, [place] % (Auto) 5.7, Eos % (Auto) 3.1, Baso % (Auto) 0.2, Absolute Neuts (auto) 6.4, Absolute Lymphs (auto) 2.74, Nucleated RBC % 0, Sodium 140, Potassium 3.4 L , Chloride 109 H, Carbon Dioxide 25.0, Anion Gap 6, BUN 4 L, Creatinine 0.92, Estim Creat Clear Calc 65.88, Est GFR (MDRD) Af Amer 79, Est GFR (MDRD) Non-Af 66, BUN/Creatinine Ratio 4.3 L, Glucose 159 H, Calcium 8.3 L 06/26/24 08:22: POC Glucose 117 H 06/26/24 12:22: POC Glucose 151 H 06/26/24 17:03: POC Glucose 158 H Micro: Microbiology 06/25/24 04:00 Stool Stool Lactoferrin - Final 06/25/24 04:00 Stool Enteric Bacteriology - Final 06/25/24 04:00 Stool Clostridioides difficile (PCR) - Final 06/25/24 04:24 Mucosa - Nose Coronavirus COVID-19 PCR - Final 06/24/24 16:22 Nasal Secretion SARS-CoV-2 Antigen (Rapid) - Final Rhythm Strip Rhythm Strip: Sinus Rhythm Rate: 76 Ectopy: None Physical Exam Const alert, oriented x3, no apparent distress and well nourished General Appearance: cooperative and well developed HEENT normocephalic, head/scalp atraumatic, moist oral mucous membranes and oropharynx normal Eyes PERRL and EOMs intact bilaterally Neck no lymphadenopathy, supple and no JVD Lymph Lymphatic: no lymphadenopathy noted and no lymphedema noted Resp normal respiratory effort, normal air movement and clear to auscultation bilaterally Cardio regular rate, regular rhythm, S1 normal heart sound, S2 normal heart sound and no murmurs GI normal to inspection, nondistended, normoactive bowel sounds GI Narrative: mild generalised tenderness, no guarding or rebound tenderness. Extremity normal capillary refill, no clubbing, cyanosis or edema and no calf tenderness General Extremity: no tenderness to palpation of joints or extremities Skin General Skin Exam: no breakdown Neuro CN's II-XII intact bilaterally, no focal motor deficits, no sensory deficits noted and deep tendon reflexes 2+ bilaterally Motor Exam: strength 5/5 throughout and general weakness Psych thought process normal, cooperative and affect normal Appearance: appropriate Assessment & Plan Assessment/Plan (1) Colitis: PLAN: Plan #Acute colitis * Still having mild left upper quadrant and left flank pain. Imaging of the abdomen done showed colitis of the ascending and transverse colon. Chest x- ray showed no acute cardiopulmonary pathology. * She is currently on IV Zosyn. * Had colonoscopy which showed extensive ischemic colitis of the splenic flexure, transverse colon and hepatic flexure and in the descending colon and in the cecum secondary to ischemic colitis. Charges/Coding Visit Charges Inpatient E&M: 41025 Subs Hosp L3
[2024-06-26 22:04] LABS: Bedside Glucose 152 mg/dL (74-106)
[2024-06-27] MEDS: 0.9% Normal Saline (1000mL) 1,000 ML 125 ML IV (02:39)
[2024-06-27 02:45] VITALS: BP 138/61; PULSE 75; RESP 18; TEMP 36.7; O2SAT 96
[2024-06-27] MEDS: oxyCODONE 5 MG Tablet PO ×3 (02:47→13:07)
[2024-06-27 05:23] VITALS: BMI 35.3
[2024-06-27] MEDS: Levothyroxine 137 MCG Tablet PO (05:38)
[2024-06-27] MEDS: metroNIDAZOLE 500 MG/100 ML BAG 100 MG IV (05:40)
[2024-06-27 06:10] LABS: Absolute Lymphocyte Count 2.87 X10^3/uL (0.83-4.51); Absolute Neutrophil Count 3.3 X10^3/uL (2.0-7.7); Basophil# 0.03 X10^3/uL; Basophil% 0.4 % (0-1); Eosinophil# 0.29 X10^3/uL; Eosinophils% 4.1 % (0-5); Lymphocyte # 2.87 X10^3/ul (0.83-4.51); Lymphocyte % 40.5 % (19-41); Mean Corp Hgb Conc 31.3 g/dL (32-36); Mean Corpuscular Hgb 29.2 pg (27.0-32.0); Mean Corpuscular Volume 93.6 fL (81-99); Mean Platelet Vol. 9.8 fl (6.2-12.0); Monocyte# 0.51 X10^3/uL; Monocyte% 7.2 % (0-10); NRBC Flagged by Analyzer 0 % (0-5); Neutrophil # 3.31 X10^3/uL (2.7-7.7); Neutrophil % 46.7 % (47-70); POSITIVE COUNT YES; RBC Distribution Width SD 44.4 fl (35.1-43.9); Red Blood Count 3.42 M/mm3 (4.2-5.4); White Blood Count 7.1 K/mm3 (4.4-11.0)
[2024-06-27 06:11] LABS: Differential Indicated SCAN CRITERIA MET
[2024-06-27 06:13] LABS: Platelet Estimate ADEQUATE (ADEQ); Platelet Morphology CLUMPED
[2024-06-27 06:14] LABS: Differential Comment SCANNED
[2024-06-27] MEDS: Morphine 2 MG/ML Syringe IV ×2 (06:28→11:32)
[2024-06-27] MEDS: 0.9% Saline Lock 10 ML Syringe IV (06:28)
[2024-06-27 06:56] LABS: Bedside Glucose 124 mg/dL (74-106)
[2024-06-27] MEDS: Pantoprazole Sodium 40 MG in 0.9% Normal Saline (100mL MB+) 100 ML 330 MG IV (08:26)
[2024-06-27] MEDS: Acetaminophen 325 MG Tablet 650 MG PO (08:38)
[2024-06-27 08:40] VITALS: PULSE 78
[2024-06-27 08:40] LABS: Anion Gap 9 (5-15); BUN 3 mg/dL (7-18); BUN/Creat Ratio 4.7 RATIO (10-20); Calcium,Total 7.9 mg/dL (8.5-10.1); Chloride 111 mmol/L (98-107); Creatinine, Serum 0.64 mg/dL (0.55-1.02); EST Glomerular Filtration Rate 99 mL/min (>60); Est Glom Filt Rate - Afr Amer 120 mL/min (>60); Estimated Creatinine Clearance 94.64 ml/min; Glucose 114 mg/dL (74-106); Potassium 4.3 mmol/L (3.5-5.1); Sodium Level 142 mmol/L (136-145)
[2024-06-27] MEDS: FLUoxetine 20 MG Capsule PO (08:40)
[2024-06-27] MEDS: Lactobacillis Acidophilus 1 CAP PO (08:40)
[2024-06-27] MEDS: Metoprolol(XL)Succ 25 MG Tablet 12.5 MG PO (08:40)
[2024-06-27 08:45] VITALS: BP 132/86; PULSE 78; RESP 18; TEMP 36.9; O2SAT 92
[2024-06-27] MEDS: Ciprofloxacin 400 MG/200 ML BAG 200 MG IV (08:48)
--- NOTE | 2024-06-27 11:13 | DS.PCM_ITS ---
Providers Date of Admission: 06/24/24 Date of Discharge: 06/27/24 Primary Care Physician: Dr. Christian Bowles, DO Consultations 06/24/24 22:00 Consult: Gastroenterology Routine Consulting Provider: [facility] Reason for Consult: Colitis EMERGENT Consult: No MD Notified: Yes Date Notified: 06/24/24 Time Notified: 20:49 Method of Notification: ED Physician Initiated Reason For Visit: COLITIS,CHEST PAIN Diagnosis Discharge Diagnosis (1) Colitis: Status: Acute Code(s): K52.9 - Noninfective gastroenteritis and colitis, unspecified Plan #Acute colitis * Still having mild left upper quadrant and left flank pain. Imaging of the abdomen done showed colitis of the ascending and transverse colon. Chest x- ray showed no acute cardiopulmonary pathology. * She is currently on IV Zosyn. * Had colonoscopy which showed extensive ischemic colitis of the splenic flexure, transverse colon and hepatic flexure and in the descending colon and in the cecum secondary to ischemic colitis. * She is having a bit of abdominal pain with diet today. Will continue IV morphine and Zofran. * Continue IV ciprofloxacin and metronidazole. * Cut back to full liquid diet. For likely discharge tomorrow. * #??Chest pain: * Patient denies having any chest pain whatsoever and says that his symptoms were due to the left upper flank pain * Troponins were negative. Will hold off on any further workup for chest pain. 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 AccuChecks ACHS. #Anxiety depression: On fluoxetine and trazodone #Hypertension: On metoprolol. #Hyperlipidemia: On statin #Hypothyroidism: On Synthroid DVT prophylaxis: SCDs. Disposition: For likely discharge tomorrow. Medications at Discharge Home Medications levothyroxine 112 mcg tablet 137 mcg PO DAILY thyroid 12/07/15 metformin 850 mg tablet 850 mg PO BIDCM diabetes 12/07/15 fluoxetine 20 mg capsule 20 mg PO DAILY mood 07/15/18 simvastatin 20 mg tablet 20 mg PO DAILY cholesterol 07/15/18 gabapentin 300 mg capsule 300 mg PO TID nerves/pain 06/24/24 metoprolol succinate 25 mg tablet,extended release 24 hr 12.5 mg PO DAILY heart 06/24/24 trazodone 50 mg tablet 100 mg PO QHS PRN sleep 06/24/24 ciprofloxacin HCl 500 mg tablet 500 mg PO Q12H #10 tabs 06/26/24 metronidazole 500 mg tablet 500 mg PO Q8H #15 tabs 06/26/24 oxycodone 5 mg tablet 5 mg PO Q6H PRN pain 3 days #12 tabs 06/26/24 Hospital Course Operations None Procedures None Summary of Care Provided Minutes Spent on Discharge: 45 Hospital Course: Patient is a 64-year-old female with a past medical history as outlined who was admitted through the ED on 06/24/2024 with a complaint of upper abdominal discomfort with associated nausea and dry heaving as well as loose stools. It was documented in the H&P the patient said she had chest pain the patient completely denied having any chest pain to me and said it was more of her abdominal pain. Chest x-ray showed no acute cardiopulmonary findings and COVID test was negative. CT of the abdomen and pelvis showed colitis of the ascending and transverse colon. EKG showed no acute ST changes. She was admitted and managed for acute colitis. She was started on IV ciprofloxacin and metronidazole. Gastroenterology was consulted. She was kept n.p.o. and given IV pain medication. She had colonoscopy which showed a 7 mm polyp at the hepatic flexure which was removed with a cold snare and segmental severe inflammation at the splenic flexure, in the transverse colon and at the hepatic flexure and in the ascending colon and in the cecum which were all due to ischemic colitis. Patient's diet was resumed. She initially had some abdominal pain after the diet was resumed but was subsequently able to tolerate it much better. She felt much better on 06/27/2024, with pain having virtually resolved. She was therefore discharged home with a prescription for 5-day course of p.o. ciprofloxacin and p.o. metronidazole. She is follow-up with her primary care doctor and gastroenterology within 1 to 2 weeks. Patient was seen and examined prior to discharge. As stated she felt much better and wanted to be discharged home. Review of systems otherwise negative. Labs and vitals reviewed. Home medication reviewed and reconciled. Physical Exam Const alert, oriented x3, no apparent distress and well nourished General Appearance: cooperative, comfortable and well developed HEENT normocephalic, head/scalp atraumatic, hearing grossly normal bilaterally, moist oral mucous membranes and oropharynx normal Mouth: oral and palatal mucosa normal Eyes PERRL, EOMs intact bilaterally and conjunctivae normal Neck no lymphadenopathy, supple and no JVD Lymph Lymphatic: no lymphadenopathy noted and no lymphedema noted Resp normal respiratory effort, normal air movement, no retractions, no use of accessory muscles and clear to auscultation bilaterally Cardio regular rate, regular rhythm, S1 normal heart sound, S2 normal heart sound and no murmurs GI normal to inspection, nondistended, normoactive bowel sounds GI Narrative: no tenderness or rebound tenderness Extremity normal to inspection, full ROM, normal capillary refill, no clubbing, cyanosis or edema and no calf tenderness General Extremity: no tenderness to palpation of joints or extremities Skin no rashes or lesions noted and no wounds General Skin Exam: no breakdown Neuro oriented x3, CN's II-XII intact bilaterally, moves all extremities, no focal motor deficits, no sensory deficits noted and deep tendon reflexes 2+ bilaterally Sensorium / Orientation: awake and alert Motor Exam: strength 5/5 throughout and general weakness Psych thought process normal, cooperative and affect normal Appearance: appropriate Weight / BMI Weight Weight: 196 lb 13.965 oz Body Mass Index (BMI) 35.3 ABG / Lab / Microbiology Data 06/27/24 05:35 06/27/24 05:35 Laboratory: Laboratory Results - last 24 hr 06/26/24 04:42: POC Glucose 125 H 06/26/24 12:22: POC Glucose 151 H 06/26/24 17:03: POC Glucose 158 H 06/26/24 20:48: POC Glucose 152 H 06/27/24 05:35: WBC 7.1, RBC 3.42 L, Hgb 10.0 L, Hct 32.0 L, MCV 93.6, MCH 29.2, MCHC 31.3 L, RDW Std Deviation 44.4 H, RDW Coeff of Mechelle 13.0, Plt Count JEWELRY CUTTER, MPV 9.8, Immature Gran % (Auto) 1.100 H, Neut % (Auto) 46.7 L, Lymph % (Auto) 40.5, [place] % (Auto) 7.2, Eos % (Auto) 4.1, Baso % (Auto) 0.4, Absolute Neuts (auto) 3.3, Absolute Lymphs (auto) 2.87, Nucleated RBC % 0, Differential Comment SCANNED, Platelet Estimate ADEQUATE, Plt Morphology Comment CLUMPED, Sodium 142, Potassium 4.3, Chloride 111 H, Carbon Dioxide 22.0, Anion Gap 9, BUN 3 L, Creatinine 0.64, Estim Creat Clear Calc 94.64, Est GFR (MDRD) Af Amer 120, Est GFR (MDRD) Non-Af 99, BUN/Creatinine Ratio 4.7 L, Glucose 114 H, Calcium 7.9 L 06/27/24 06:22: POC Glucose 124 H Microbiology: Microbiology 06/25/24 04:00 Stool Stool Lactoferrin - Final 06/25/24 04:00 Stool Enteric Bacteriology - Final 06/25/24 04:00 Stool Clostridioides difficile (PCR) - Final 06/25/24 04:24 Mucosa - Nose Coronavirus COVID-19 PCR - Final 06/24/24 16:22 Nasal Secretion SARS-CoV-2 Antigen (Rapid) - Final D/C Instructions Discharge Diet: Low fat / Low cholesterol Discharge Activity: Return to Normal Activity Weight Bearing Status: Weight bearing as tolerated Call your doctor if you observe: Fever of 101 or Higher, Shortness of breath and Uncontrolled pain Meaningful Use Info Meaningful Use Meaningful Use Diagnoses (Choose all that apply): None applicable Ischemic Stroke Statin Dosing Therapy Reference: STATIN DOSE THERAPY REFERENCE: * Patients > 75 years receive moderate or high dose statin therapy. * Patients 75 years or YOUNGER should receive HIGH intensity statin dose unless contraindicated. You will be required to document reason for non-treatment if statin daily dose does not meet guidelines. HIGH DOSE STATIN THERAPY DAILY Atorvastatin > than or = to 40 mg Rosuvastatin > than or = to 20 mg Amlodipine + Atorvastatin > than or = to 2.5/40 mg Ezetimibe + Simvastatin 10/80 mg Simvastatin 80mg Discharge Plan Admission Admit Date/Time: 06/24/24 20:47 Primary Reason for Your Visit: acute ischemic colitis Attending Provider: Dorothy Topete Primary Care Provider: Christian Bowles Consulting Providers: Kenyatta Salter Instructions Patient Instructions: Ischemic Colitis Discharge Orders/Prescriptions Prescriptions: New ciprofloxacin HCl 500 mg tablet 500 mg PO Q12H Qty: 10 0RF metronidazole 500 mg tablet 500 mg PO Q8H Qty: 15 0RF oxycodone 5 mg tablet 5 mg PO Q6H PRN (Reason: pain) 3 Days Qty: 12 0RF Continued metformin 850 MG tablet 850 mg PO BIDCM levothyroxine 112 MCG tablet 137 mcg PO DAILY simvastatin 20 tablet 20 mg PO DAILY Patient Comments: fluoxetine 20 MG capsule 20 mg PO DAILY trazodone 50 mg tablet 100 mg PO QHS PRN metoprolol succinate 25 mg tablet extended release 24 hr 12.5 mg PO DAILY gabapentin 300 mg capsule 300 mg PO TID Referrals / Follow Up: Christian Bowles DO [Primary Care Provider] - Within 2 Weeks Disposition Disposition (needs filled in before D/C Order can be placed): Home, Self Care Charges/Coding Visit Charges Inpatient E&M: 16382 Disch Hosp >30min
[2024-06-27] MEDS: Insulin Lispro 100 UNIT/ML INSULN.PEN SC (11:28)
[2024-06-27 11:47] LABS: Bedside Glucose 181 mg/dL (74-106)
[2024-06-29 11:59] LABS: Albumin 2.9 g/dL (2.9-4.4); Alpha-1-Globulins 0.2 g/dL (0.0-0.4); Alpha-2-Globulins 0.6 g/dL (0.4-1.0); Anti-Centromere B Ab <0.2 AI (0.0-0.9); Anti-Chromatin <0.2 AI (0.0-0.9); Anti-Jo <0.2 AI (0.0-0.9); Anti-Scleroderma-70 AB <0.2 AI (0.0-0.9); Anti-dsDNA Ab <1 IU/mL (0-9); Deamidated Gliadin IgA 17 units (0-19); Deamidated Gliadin IgG 2 units (0-19); Endomysial Antibody IgA Negative (Negative); Immunoglobulin A 427 mg/dL (87-352); Immunoglobulin G 1045 mg/dL (586-1602); Immunoglobulin M 110 mg/dL (26-217); PROEL- TOTAL PROTEIN 5.7 g/dL (6.0-8.5); RNP Ab 0.2 AI (0.0-0.9); SJOGREN'S Anti-SS-A test < 0.2 AI (0.0-0.9); SJOGREN'S Anti-SS-B test < 0.2 AI (0.0-0.9); Smith Ab <0.2 AI (0.0-0.9); t-Transglutaminase IgA <2 U/mL (0-3)
== END 2024-06-27 13:53 | disposition home or self-care (01) | DRG 331 ==
LOC: ED 15:41 → PCU 21:32
PROVIDERS: Internal Medicine Gastroenterology; Admitting Provider Family Medicine; Emergency Provider Emergency Medicine; PCP Student in an Organized Health Care Education/Training Program; Visit Provider Student in an Organized Health Care Education/Training Program
PROC: 0DJD8ZZ Inspection of Lower Intestinal Tract, Via Natural or Artificial Opening Endoscopic (ICD-10-PCS; CPT 45378; principal; 2024-06-25 11:55)
DX: K55.9 Vascular disorder of intestine, unspecified (principal); E03.9 Hypothyroidism, unspecified; E11.40 Type 2 diabetes mellitus with diabetic neuropathy, unspecified; I10 Essential (primary) hypertension; F32.A Depression, unspecified; I25.10 Atherosclerotic heart disease of native coronary artery without angina pectoris; G43.909 Migraine, unspecified, not intractable, without status migrainosus; G47.33 Obstructive sleep apnea (adult) (pediatric); E78.5 Hyperlipidemia, unspecified; K63.5 Polyp of colon; Z87.891 Personal history of nicotine dependence; Z86.16 Personal history of COVID-19; Z79.84 Long term (current) use of oral hypoglycemic drugs; Z79.891 Long term (current) use of opiate analgesic
CPT/HCPCS: 36415; 71046; 74177; 80048; 80053; 80061; 81001; 82784; 82962; 83516; 83605; 83615; 83630; 83690; 83735; 84100; 84145; 84165; 84484; 85025; 85652; 86140; 86225; 86235; 86255; 86334; 87426; 87493; 87506; 87635; 88305; 93005; 97802; 99284; J7030; J7040; J7050; J7120; Q9967; A4216; J0744; J2405

== ENCOUNTER 2024-06-30 12:32 | Emergency (ER) | payer OTHER, SELFPAY ==
[2024-06-30 12:33] VITALS: BP 127/95; PULSE 74; RESP 16; TEMP 36.2; O2SAT 98; BMI 35.2
--- NOTE | 2024-06-30 12:45 | EX.ED.DYSGE1 ---
HPI History of Present Illness Chief Complaint: Abd Pain PFSH PFS Medical History History of COVID-19 Neuropathy Former tobacco use Hypertension Hyperlipidemia Diabetes mellitus, type II Obesity (BMI 30-39.9) Hypothyroidism Home Medications ?Medication ?Instructions ?Recorded ?Last Taken ?Type levothyroxine 112 mcg tablet 137 mcg PO DAILY thyroid 12/07/15 Unknown History metformin 850 mg tablet 850 mg PO BIDCM diabetes 12/07/15 Unknown History fluoxetine 20 mg capsule 20 mg PO DAILY mood 07/15/18 Unknown History simvastatin 20 mg tablet 20 mg PO DAILY cholesterol 07/15/18 Unknown History gabapentin 300 mg capsule 300 mg PO TID nerves/pain 06/24/24 Unknown History metoprolol succinate 25 mg 12.5 mg PO DAILY heart 06/24/24 Unknown History tablet,extended release 24 hr trazodone 50 mg tablet 100 mg PO QHS PRN sleep 06/24/24 Unknown History ciprofloxacin HCl 500 mg tablet 500 mg PO Q12H #10 tabs 06/26/24 Unknown Rx metronidazole 500 mg tablet 500 mg PO Q8H #15 tabs 06/26/24 Unknown Rx oxycodone 5 mg tablet 5 mg PO Q6H PRN pain 3 days #12 06/26/24 Unknown Rx tabs ondansetron 4 mg disintegrating 4 mg PO Q8H PRN PRN Nausea #10 tabs 06/30/24 Unknown Rx tablet oxycodone 5 mg tablet 5 mg PO Q6H PRN pain 5 days #20 06/30/24 Unknown Rx tabs Allergy/AdvReac Type Severity Reaction Status Date / Time etodolac (From [facility]) Allergy li me Verified 06/30/24 12:33 up Penicillins Allergy Itching Verified 06/30/24 12:33 tramadol Allergy Rash Verified 06/30/24 12:33 Family History Sister CAD (coronary artery disease) Heart disease Hypertension Mother Heart disease Hypertension CAD (coronary artery disease) Father Heart disease Hypertension CAD (coronary artery disease) Surgical History S/P appendectomy Social History household members: none Smoking Status: Former smoker how long ago did patient quit smoking: Quit ~ 20 years prior 2003, smoked < 1 ppd since teen until quit. alcohol intake: current alcohol intake frequency: holidays/special occasions only substance use type: does not use EXAM Physical Exam Const Vital Signs: 06/30/24 12:33 06/30/24 13:35 06/30/24 14:00 Temperature 97.1 F L 97.3 F L 97.3 F L Temperature Source Temporal Temporal Temporal Pulse Rate 74 74 63 Respiratory Rate 16 17 17 Blood Pressure 127/95 H 137/73 H 103/55 L Blood Pressure Mean 105 94 71 Pulse Ox 98 98 96 Oxygen Delivery Method Room Air Room Air Room Air 06/30/24 15:45 Temperature 97.6 F L Temperature Source Pulse Rate 68 Respiratory Rate 18 Blood Pressure 115/65 Blood Pressure Mean 81 Pulse Ox 99 Oxygen Delivery Method MDM MDM MDM Narrative Medical decision making narrative: HISTORY OF PRESENT ILLNESS: 64-year-old female presents abdominal pain. Patient also endorses nausea vomiting. No she has ran out of oral narcotic pain medication at home. Denies chest pain, shortness of breath, fever notes loose stools but denies any melena hematochezia. Denies any urinary complaint vaginal bleeding or discharge. REVIEW OF SYSTEMS: Pertinent positives: Abdominal pain Pertinent negatives: Chest pain, shortness of breath PHYSICAL EXAM: Nursing triage notes reviewed, Vital signs reviewed Constitutional: please see mdm HENT: MMM Eyes: Pupils equal round and reactive to light, Extraocular muscles intact Neck: No stridor, no JVD, full neck ROM Lungs: Clear to auscultation, No wheezing or rales. No increased work of breathing, no conversational dyspnea, no accessory muscle use, no nasal flaring. No respiratory distress noted Heart: Regular rate and rhythm, No murmurs, No rubs and No gallops, 2+ distal pulses (radial, femoral, posterior tibial) in all extremities Abdomen: Soft, there is no tenderness, rigidity, rebound or guarding, no obvious peritoneal signs, no palpable pulsatile abdominal masses, no auscultated abdominal bruit : No CVAT Extremities: No edema Neuro: No focal neurological deficits, cranial nerves II through XII intact, 5/5 strength in all extremities. Intact sensation to light touch in all extremities, 2+ reflexes bilateral patella tendons. Normal gait. No ataxia. Skin: No rash or lesions noted MEDICAL DECISION MAKING: Chief Complaint: Abdominal pain External records reviewed: Reviewed prior GI note. Saw Dr. Medel on 06/26/2024. She has been evaluated at time for acute colitis. Received IV Zosyn at that time. Underwent colonoscopy which showed extensive ischemic colitis at the splenic flexure and transverse colon as well as hepatic flexure and the descending colon. Factors affecting care: Ischemic colitis, type 2 diabetes, hypertension, hyperlipidemia Social determinants of health: none History obtained from others: The patient's family Consults: none MDM Narrative: Patient is hemodynamically stable, afebrile and nontoxic-appearing. Abdominal exam with diffuse tenderness mostly in the epigastrium. I considered the following differential diagnosis: Ischemic colitis, perforation, obstruction, pancreatitis, pedal biliary obstruction ALL IMAGES (IF OBTAINED) HAVE BEEN PERSONALLY REVIEWED AND INTERPRETED BY MYSELF. EKG with normal sinus rhythm, left ax deviation, prolonged QT interval at 504, no STEMI Lipase is wnl indicating no pancreatic inflammation. CBC with no leukocytosis, mild anemia (improved from baseline), no thrombocytopenia BMP with hypokalemia, no evidence of metabolic acidosis or endorgan hypoperfusion LFTs show no evidence of hepatobiliary pathology. Lipase is wnl indicating no pancreatic inflammation. Urinalysis shows no evidence of urinary inflammation suggestive of UTI CT scan of the abdomen pelvis shows improving colitis. Initial lactate elevated consistent with likely dehydration owing to nausea vomiting rather than distributive shock. Will give 1 L normal saline repeat lactate to determine admission versus discharge. Repeat lactate resolved. Patient was able to tolerate p.o. here in the form of p.o. potassium. Will give Zofran additional pain control at home in the form of oral narcotics. Patient is appropriate discharge home with close PCP and GI follow-up. The patient and/or family, caregivers express understanding. The patient and/or family, caregivers agrees with the plan. Shared decision making: I will have a discussion with the patient and or visitors regarding risk/benefits of further testing or admission. They will be made aware of of the risk/benefits inherent in this decision they will be given the opportunity to voice understanding. Total critical care time today provided was at least 0 minutes. This excludes separately billable procedures. Critical care time (if documented) is secondary to the patient having high probability of clinically significant/life threatening deterioration in the patient's condition which required my urgent intervention. Impression: 1. Abdominal pain 2. Colitis 3. Hypokalemia Dispo: Discharge home This note was generated with [employer] dictation software. It may contain incorrect words, spelling, and punctuation that were not noted in review of the chart prior to signing. Lab Data Labs: Laboratory Results - last 24 hr 06/30/24 06/30/24 06/30/24 13:09 14:18 15:03 WBC 6.2 RBC 3.80 L Hgb 11.0 L Hct 34.9 L MCV 91.8 MCH 28.9 MCHC 31.5 L RDW Std Deviation 43.1 RDW Coeff of Mechelle 13.3 Plt Count 319 MPV 9.1 Immature Gran % (Auto) 0.800 Neut % (Auto) 45.9 L Lymph % (Auto) 39.1 [place] % (Auto) 10.0 Eos % (Auto) 3.7 Baso % (Auto) 0.5 Absolute Neuts (auto) 2.8 Absolute Lymphs (auto) 2.42 Nucleated RBC % 0 Sodium 138 Potassium 3.1 L Chloride 106 Carbon Dioxide 26.0 Anion Gap 6 BUN 4 L Creatinine 0.85 Estim Creat Clear Calc 70.46 Est GFR (MDRD) Af Amer 87 Est GFR (MDRD) Non-Af 72 BUN/Creatinine Ratio 4.7 L Glucose 135 H Lactic Acid 2.5 H* 1.6 Calcium 8.6 Total Bilirubin 0.30 Direct Bilirubin 0.10 AST 29 ALT 25 Alkaline Phosphatase 82 Total Protein 7.2 Albumin 2.8 L Globulin 4.4 H Lipase 29 Urine Color Yellow Urine Clarity Clear Urine pH 6.0 Ur Specific [place] 1.010 Urine Protein Negative Urine Glucose (UA) Normal Urine Ketones Negative Urine Occult Blood Negative Urine Nitrite Negative Urine Bilirubin Negative Urine Urobilinogen Normal Ur Leukocyte Esterase 25 H Urine RBC 0 SEEN Urine WBC 0-5 SEEN Ur Squamous Epith Cells 0-5 SEEN Urine Bacteria RARE Urine Mucus 0 SEEN Radiography Diagnostic Testing: Clinical Impression(s) from Imaging Studies Abdomen/Pelvis CT 06/30/24 12:47 IMPRESSION: Redemonstration of colitis in the descending and transverse colon which is improved when compared with 06/24/2024. No bowel obstruction. Small amount of free fluid. No free air or fluid collection. Enlarged liver with diffuse fatty infiltration. Trace bilateral pleural effusions with overlying atelectasis. Electronically Signed: Frederick Hair MD at 14:42 EDT , Discharge Plan Triage Chief Complaint: Abd Pain ED Provider: Kalen Copeland Dx/Rx/DC Orders Clinical Impression: Colitis, Acute dehydration Instructions: ED Understanding Colitis Prescriptions: New oxycodone 5 mg tablet 5 mg PO Q6H PRN (Reason: pain) 5 Days Qty: 20 0RF ondansetron 4 mg tablet,disintegrating 4 mg PO Q8H PRN PRN (Reason: Nausea) Qty: 10 0RF No Action metformin 850 MG tablet 850 mg PO BIDCM levothyroxine 112 MCG tablet 137 mcg PO DAILY simvastatin 20 tablet 20 mg PO DAILY Patient Comments: fluoxetine 20 MG capsule 20 mg PO DAILY trazodone 50 mg tablet 100 mg PO QHS PRN metoprolol succinate 25 mg tablet extended release 24 hr 12.5 mg PO DAILY gabapentin 300 mg capsule 300 mg PO TID ciprofloxacin HCl 500 mg tablet 500 mg PO Q12H Qty: 10 0RF metronidazole 500 mg tablet 500 mg PO Q8H Qty: 15 0RF oxycodone 5 mg tablet 5 mg PO Q6H PRN (Reason: pain) 3 Days Qty: 12 0RF Primary Care Provider: Christian Bowles Referrals: Christian Bowles DO [Primary Care Provider] - Activity Restrictions/Additional Instructions: Thank you for trusting us with your care today! Please take Tylenol (2 pills, 650 mg), ibuprofen (2 pills, 400 mg) every 6 hours as needed for pain and fever control. If this does not control your pain please take oxycodone for breakthrough pain medicine. Please take Zofran as needed for nausea and vomiting. Please return to the emergency department if your symptoms change or worsen. Specifically develop vomiting cannot tolerate medicine by mouth. If you develop severe pain in your abdomen. If you notice blood in your stool. Please follow with your primary care physician for further outpatient evaluation and management. Print Language: Jordanian Disposition Disposition: Home, Self Care
--- NOTE | 2024-06-30 12:47 | CT_ITS ---
STUDY: CT ABDOMEN AND PELVIS WITH CONTRAST REASON FOR EXAM: Female, 64 years old. Abdominal pain. Recent history of colitis. RADIATION DOSAGE (If Supplied By Facility): CTDIvol = ( 19.72 ) mGy, DLP = ( 1022.86 ) mGycm TECHNIQUE: Transaxial images were obtained through the abdomen and pelvis without oral contrast. 100 ml of Isovue-300 contrast was administered. Sagittal and coronal images were reconstructed. CT scan performed according to ALARA principles. Automated exposure control used during exam. COMPARISON: Prior study dated: 06/24/24 FINDINGS: LOWER THORAX: There are trace bilateral pleural effusions with overlying atelectasis. The visualized portions of the heart and pericardium are within normal limits. GALLBLADDER / BILE DUCTS: There are no calcified gallstones present. There is no intrahepatic biliary duct dilatation. The common bile duct is normal in caliber. There are no calcified ductal stones. LIVER: The liver is enlarged and there is diffuse fatty infiltration. SPLEEN: The spleen is normal in size. PANCREAS: The pancreas is within normal limits. ADRENAL GLANDS: The adrenal glands are within normal limits. KIDNEYS / BLADDER: There are no renal or ureteral stones. There is no hydronephrosis. There are no focal renal lesions. The urinary bladder is partially distended and appears grossly unremarkable. STOMACH / BOWEL: Normal visualized stomach. There is no bowel obstruction. Again noted is bowel wall thickening in the ascending colon and transverse colon which is decreased when compared with the prior exam. This is consistent with improving colitis. The appendix is not visualized, but there are no findings to suggest acute appendicitis. PERITONEUM/RETROPERITONEUM: There is a small amount of free fluid. There is no free air or fluid collection. There is no abnormal soft tissue mass identified. There is no abdominal or pelvic lymphadenopathy. VESSELS: There are atherosclerotic calcifications noted in the aorta. The aorta is normal in caliber. The IVC is unremarkable. BONES: There are no destructive osseous lesions. SOFT TISSUES: The visualized soft tissues are within normal limits. CT/Abdomen/Pelvis W IV Cont ONLY IMPRESSION: Redemonstration of colitis in the descending and transverse colon which is improved when compared with 06/24/2024. No bowel obstruction. Small amount of free fluid. No free air or fluid collection. Enlarged liver with diffuse fatty infiltration. Trace bilateral pleural effusions with overlying atelectasis. Electronically Signed: Frederick Hair MD at 14:42 EDT ,
[2024-06-30] MEDS: Morphine 4 MG/ML Syringe IV (13:13)
[2024-06-30] MEDS: 0.9% Normal Saline (1000mL) 1,000 ML 999 ML IV (13:13)
[2024-06-30] MEDS: Ondansetron 4 MG/2 ML Vial IV (13:14)
[2024-06-30 13:28] LABS: Absolute Lymphocyte Count 2.42 X10^3/uL (0.83-4.51); Absolute Neutrophil Count 2.8 X10^3/uL (2.0-7.7); Basophil# 0.03 X10^3/uL; Basophil% 0.5 % (0-1); Eosinophil# 0.23 X10^3/uL; Eosinophils% 3.7 % (0-5); Hematocrit 34.9 % (37-47); Lymphocyte # 2.42 X10^3/ul (0.83-4.51); Lymphocyte % 39.1 % (19-41); Mean Corp Hgb Conc 31.5 g/dL (32-36); Mean Corpuscular Hgb 28.9 pg (27.0-32.0); Mean Corpuscular Volume 91.8 fL (81-99); Mean Platelet Vol. 9.1 fl (6.2-12.0); Monocyte# 0.62 X10^3/uL; NRBC Flagged by Analyzer 0 % (0-5); Neutrophil # 2.84 X10^3/uL (2.7-7.7); Neutrophil % 45.9 % (47-70); Platelet Count 319 K/mm3 (150-450); RBC Distribution Width CV 13.3 % (11.6-14.6); RBC Distribution Width SD 43.1 fl (35.1-43.9); White Blood Count 6.2 K/mm3 (4.4-11.0)
[2024-06-30 13:35] VITALS: BP 137/73; PULSE 74; RESP 17; TEMP 36.3; O2SAT 98
[2024-06-30 13:50] LABS: AST(SGOT) 29 U/L (15-37); Alanine Aminotransfer ALT/SGPT 25 U/L (13-56); Albumin, Serum 2.8 g/dL (3.2-5.0); Alkaline Phosphatase 82 U/L (45-117); Anion Gap 6 (5-15); BUN 4 mg/dL (7-18); BUN/Creat Ratio 4.7 RATIO (10-20); Calcium,Total 8.6 mg/dL (8.5-10.1); Chloride 106 mmol/L (98-107); Creatinine, Serum 0.85 mg/dL (0.55-1.02); EST Glomerular Filtration Rate 72 mL/min (>60); Est Glom Filt Rate - Afr Amer 87 mL/min (>60); Estimated Creatinine Clearance 70.46 ml/min; Globulin 4.4 g/dL (2.2-4.2); Glucose 135 mg/dL (74-106); Lipase 29 U/L (13-75); Potassium 3.1 mmol/L (3.5-5.1); Protein, Total 7.2 g/dL (6.4-8.2); Sodium Level 138 mmol/L (136-145)
[2024-06-30 13:51] LABS: Lactic Acid 2.5 mmol/L (0.4-1.9)
[2024-06-30 14:00] VITALS: BP 103/55; PULSE 63; RESP 17; TEMP 36.3; O2SAT 96
[2024-06-30 14:29] LABS: Mucous, Urine 0 SEEN /hpf (<or=2+); Red Blood Cells-Urine 0 SEEN /hpf (0-5)
[2024-06-30 14:43] LABS: Color, Urine Yellow (Yellow); Glucose, Dipstick Normal (Normal); Ketone-Dipstick Negative (Negative); Leukocyte Esterase-Dipstick 25 /ul (Negative); Nitrite-Dipstick Negative (Negative); Occult Blood-Urine Negative /ul (Negative); Protein-Dipstick Negative (Negative); Urine Bilirubin Dipstick Negative (Negative); Urine Clarity Clear (Clear); Urine Urobilinogen Normal (Normal)
[2024-06-30 15:03] LABS: Bacteria RARE /hpf (None Seen); Squamous Epithelial Cells - UA 0-5 SEEN /hpf (5-10); White Blood Cells 0-5 SEEN /hpf (0-5)
[2024-06-30 15:41] LABS: Lactic Acid 1.6 mmol/L (0.4-1.9)
[2024-06-30] MEDS: Potassium Chloride Oral Tablet 20 MEQ 40 MEQ PO (15:44)
[2024-06-30 15:45] VITALS: BP 115/65; PULSE 68; RESP 18; TEMP 36.4; O2SAT 99
[2024-06-30 17:17] LABS: Reflex Lactate? Y
== END 2024-06-30 15:57 | disposition home or self-care (01) ==
PROVIDERS: Emergency Provider Emergency Medicine; PCP Student in an Organized Health Care Education/Training Program; Visit Provider Emergency Medicine
DX: K52.9 Noninfective gastroenteritis and colitis, unspecified (principal); E11.40 Type 2 diabetes mellitus with diabetic neuropathy, unspecified; E86.0 Dehydration; Z86.16 Personal history of COVID-19; Z87.891 Personal history of nicotine dependence
CPT/HCPCS: 74177; 80048; 80076; 81001; 83605; 83690; 85025; 93005; 96361; 96374; 96375; 96376; 99284; Q9967; A4216; J2405

== ENCOUNTER 2024-08-04 21:04 | Emergency (ER) | payer OTHER, SELFPAY ==
[2024-08-04 21:06] VITALS: BP 176/77; PULSE 80; RESP 22; TEMP 37.1; O2SAT 98
[2024-08-04 21:09] VITALS: BMI 34.6
--- NOTE | 2024-08-04 22:27 | ED.VIS.BACK ---
HPI History of Present Illness Chief Complaint: Back Informant: patient and family Narrative Narrative: 64-year-old female presenting to the emergency room with acute on chronic right sciatica. Patient notes severe pain in the right buttock going down her leg towards her calf. She denies any foot drop. She states that she has been battling sciatica for years and typically will go 6 months in between injections from her pain management doctor. Patient states she is not due for an injection until August. She states that she was in bed this evening and the pain woke her up. She denies any trauma. She denies any recent illnesses. She is a type II diabetic. She denies any rashes. No difficulty with bowel or bladder control. No fevers. No known malignancies. She denies low back pain. [facility] Medical History Colitis History of COVID-19 Neuropathy Former tobacco use Hypertension Hyperlipidemia Diabetes mellitus, type II Obesity (BMI 30-39.9) Hypothyroidism Home Medications ?Medication ?Instructions ?Recorded ?Last Taken ?Type levothyroxine 112 mcg tablet 137 mcg PO DAILY thyroid 12/07/15 Unknown History metformin 850 mg tablet 850 mg PO BIDCM diabetes 12/07/15 Unknown History fluoxetine 20 mg capsule 20 mg PO DAILY mood 07/15/18 Unknown History simvastatin 20 mg tablet 20 mg PO DAILY cholesterol 07/15/18 Unknown History gabapentin 300 mg capsule 300 mg PO TID nerves/pain 06/24/24 Unknown History metoprolol succinate 25 mg 12.5 mg PO DAILY heart 06/24/24 Unknown History tablet,extended release 24 hr trazodone 50 mg tablet 100 mg PO QHS PRN sleep 06/24/24 Unknown History ciprofloxacin HCl 500 mg tablet 500 mg PO Q12H #10 tabs 06/26/24 Unknown Rx metronidazole 500 mg tablet 500 mg PO Q8H #15 tabs 06/26/24 Unknown Rx oxycodone 5 mg tablet 5 mg PO Q6H PRN pain 3 days #12 06/26/24 Unknown Rx tabs ondansetron 4 mg disintegrating 4 mg PO Q8H PRN PRN Nausea #10 tabs 06/30/24 Unknown Rx tablet oxycodone 5 mg tablet 5 mg PO Q6H PRN pain 5 days #20 06/30/24 Unknown Rx tabs diazepam 5 mg tablet 5 mg PO Q8 PRN Muscle Spasm #9 tabs 08/05/24 Unknown Rx oxycodone-acetaminophen 5 mg-325 1 tab PO Q6H PRN PRN Pain 3 days 08/05/24 Unknown Rx mg tablet #12 TABLETS Allergy/AdvReac Type Severity Reaction Status Date / Time [facility] Allergy li me Verified 08/04/24 21:06 up Penicillins Allergy Itching Verified 08/04/24 21:06 tramadol Allergy Rash Verified 08/04/24 21:06 Family History Sister CAD (coronary artery disease) Heart disease Hypertension Mother Heart disease Hypertension CAD (coronary artery disease) Father Heart disease Hypertension CAD (coronary artery disease) Surgical History S/P appendectomy Social History household members: none Smoking Status: Former smoker how long ago did patient quit smoking: Quit ~ 20 years prior 2003, smoked < 1 ppd since teen until quit. alcohol intake: current alcohol intake frequency: holidays/special occasions only substance use type: does not use ROS ROS ED Constitutional Constitutional ED: Denies chills or weight loss Eyes Eyes: Denies change in vision or diplopia ENT ENT ED: Denies ear pain, rhinorrhea or sore throat Cardiovascular Cardiovascular: Denies chest pain, orthopnea, palpitations or racing heartbeat Respiratory/Chest Respiratory/Chest: Denies cough, dyspnea or orthopnea Gastrointestinal Gastrointestinal: Denies abdominal pain, diarrhea, nausea or vomiting Genitourinary Genitourinary ED: Denies dysuria, hematuria or urinary frequency Musculoskeletal Musculoskeletal: Reports other Details: Right buttock right leg pain ; Denies arthralgias or myalgias Integumentary Denies abscess or rash Neurologic Neurologic: Denies headache(s) or weakness Psychiatric Psychiatric: Denies anxiety, depression, suicidal ideation or suicidal thoughts Endocrine Endocrinology: Denies polydipsia, polyphagia or polyuria Allergic/Immunologic Allergic/Immunologic ED: Denies mouth swelling, tongue swelling or urticaria EXAM Physical Exam Narrative Exam Narrative: Patient appears very uncomfortable in the bed holding her right buttock. Const Vital Signs: 08/04/24 21:06 08/05/24 00:04 Temperature 98.7 F Temperature Source Temporal Pulse Rate 80 78 Respiratory Rate 22 H 18 Blood Pressure 176/77 H 148/78 H Blood Pressure Mean 110 101 Pulse Ox 98 97 Oxygen Delivery Method Room Air Room Air Positive well nourished and well developed General Appearance ED: well developed HEENT Reports normocephalic, head/scalp atraumatic and moist mucous membranes Eyes PERRL and EOMs intact bilaterally Neck no lymphadenopathy, supple and no JVD Resp normal respiratory effort and clear to auscultation bilaterally Cardio regular rate, regular rhythm and no murmurs GI normal to inspection, nondistended, normoactive bowel sounds and non-tender Palpation: soft Back/Spine no CVA tenderness and normal ROM Extremity normal to inspection General Extremety ED: Negative for edema General Extremity: Negative for edema Neuro oriented x3 and CN's II-XII intact bilaterally Neuro Narrative: I do not appreciate any muscular weakness. There is no loss of sensory. Normal deep tendon reflexes. There is no apparent rash on the leg or buttock. She is tender palpation over the piriformis muscle/sciatic notch. Sensorium / Orientation: alert Motor Exam: strength 5/5 throughout Deep Tendon Reflexes: Rt Patellar (L4): 2+, Lt Patellar (L4): 2+, Rt Ankle (S1): 2+ and Lt Ankle (S1): 2+ Deep Tendon Reflexes Back: Rt Patellar (L4): 2+, Lt Patellar (L4): 2+, Rt Ankle (S1): 2+ and Lt Ankle (S1): 2+ Psych mental status grossly normal Mood & Affect: Negative for depressed or tearful Skin no rashes or lesions noted and no wounds MDM MDM MDM Narrative Medical decision making narrative: Differential diagnosis with clued sciatica lumbar radiculopathy shingles neuropathy infectious etiologies such as discitis spinal abscesses Patient was given a dose of Dilaudid Toradol and Ativan intravenously. Patient notes some improvement of pain but still has discomfort. Clinically I think this is an exacerbation of her chronic sciatica. She has no lower back pain or midline pain. Is on the buttock around the sciatic notch piriformis region. She has no neurologic deficits. No rash or skin changes to suggest infection. I will write for the patient to have some Percocet and diazepam. I am hesitant to give her steroids as she hopes to be in with her pain management doctor for injections soon.. History & Record Review Discussion w/independent historian: Patient and Family Additional record(s) reviewed:: Prior ED visit Discharge Plan Triage Chief Complaint: Back ED Provider: Juvencio King Dx/Rx/DC Orders Clinical Impression: Right sided sciatica, Acute pain of right lower extremity Instructions: ED Sciatica Prescriptions: New oxycodone-acetaminophen 5-325 mg tablet 1 tab PO Q6H PRN PRN (Reason: Pain) 3 Days Qty: 12 0RF diazepam 5 mg tablet 5 mg PO Q8 PRN (Reason: Muscle Spasm) Qty: 9 0RF No Action metformin 850 MG tablet 850 mg PO BIDCM levothyroxine 112 MCG tablet 137 mcg PO DAILY simvastatin 20 tablet 20 mg PO DAILY Patient Comments: fluoxetine 20 MG capsule 20 mg PO DAILY oxycodone 5 mg tablet 5 mg PO Q6H PRN (Reason: pain) 5 Days Qty: 20 0RF ondansetron 4 mg tablet,disintegrating 4 mg PO Q8H PRN PRN (Reason: Nausea) Qty: 10 0RF trazodone 50 mg tablet 100 mg PO QHS PRN metoprolol succinate 25 mg tablet extended release 24 hr 12.5 mg PO DAILY gabapentin 300 mg capsule 300 mg PO TID ciprofloxacin HCl 500 mg tablet 500 mg PO Q12H Qty: 10 0RF metronidazole 500 mg tablet 500 mg PO Q8H Qty: 15 0RF oxycodone 5 mg tablet 5 mg PO Q6H PRN (Reason: pain) 3 Days Qty: 12 0RF Primary Care Provider: Christian Bowles Referrals: Christian Bowles DO [Primary Care Provider] - Print Language: Albanian Disposition Disposition: Home, Self Care
[2024-08-04] MEDS: Ketorolac 30 MG/ML Syringe IV (22:39)
[2024-08-04] MEDS: HYDROmorphone 1 MG/ML Syringe IV (22:42)
[2024-08-05] MEDS: LORazepam 2 MG/ML Syringe 1 MG IV
[2024-08-05 00:04] VITALS: BP 148/78; PULSE 78; RESP 18; O2SAT 97
[2024-08-05 01:05] VITALS: BP 126/75; PULSE 72; RESP 18; TEMP 36.7; O2SAT 100
== END 2024-08-05 01:14 | disposition home or self-care (01) ==
PROVIDERS: Emergency Provider Emergency Medicine; PCP Student in an Organized Health Care Education/Training Program; Visit Provider Emergency Medicine
DX: M54.31 Sciatica, right side (principal); E11.40 Type 2 diabetes mellitus with diabetic neuropathy, unspecified; M79.604 Pain in right leg; Z87.891 Personal history of nicotine dependence; Z86.16 Personal history of COVID-19
CPT/HCPCS: 96374; 96375; 96376; 99282; A4216

== ENCOUNTER 2024-09-14 16:55 | Emergency (ER) | payer OTHER, SELFPAY ==
[2024-09-14 16:56] VITALS: BP 138/61; PULSE 75; RESP 18; TEMP 36.3; O2SAT 98; BMI 36.4
[2024-09-14 18:18] VITALS: O2SAT 96
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
[2024-09-14] MEDS: Acetaminophen 500 MG Tablet 1000 MG PO (18:38)
--- NOTE | 2024-09-14 18:45 | RAD_ITS ---
STUDY: X-RAY CHEST REASON FOR EXAM: Female, 64 years old. chest injury TECHNIQUE: Frontal and lateral views of the chest. COMPARISON: June 24, 2024 FINDINGS: The lungs are clear and expanded. There is no demonstrated pleural abnormality. Normal size heart. Normal mediastinum and raphael. Normal visualized pulmonary arteries. Normal visualized aortic arch and descending thoracic aorta. Normal visualized thoracic spine. Normal visualized ribs, clavicles, and shoulders. There is no demonstrated abnormality of the visualized soft tissue structures of the upper abdomen. RAD/Chest PA and Lateral IMPRESSION: Normal x-ray examination of the chest. Electronically Signed: Errol Madrigal MD at 20:05 EDT ,
[2024-09-14 21:09] VITALS: BP 134/78; PULSE 80; RESP 16; TEMP 36.6; O2SAT 97
== END 2024-09-14 21:10 | disposition home or self-care (01) ==
PROVIDERS: Emergency Provider Emergency Medicine; PCP Student in an Organized Health Care Education/Training Program; Visit Provider Emergency Medicine
DX: S29.009A Unspecified injury of muscle and tendon of unspecified wall of thorax, initial encounter (principal); E11.9 Type 2 diabetes mellitus without complications; Z86.16 Personal history of COVID-19; Z87.891 Personal history of nicotine dependence; V49.40XA Driver injured in collision with unspecified motor vehicles in traffic accident, initial encounter
CPT/HCPCS: 71046; 99282

== ENCOUNTER 2025-04-21 13:37 | Emergency (ER) | payer OTHER, SELFPAY ==
[2025-04-21 13:38] VITALS: BP 139/83; PULSE 79; RESP 18; TEMP 36.3; O2SAT 100; BMI 32.0
--- NOTE | 2025-04-21 14:00 | EKG12_ITS ---
Test Reason : Blood Pressure : */* mmHG Vent. Rate : 72 BPM Atrial Rate : 72 BPM P-R Int : 132 ms QRS Dur : 92 ms QT Int : 418 ms P-R-T Axes : 13 12 -40 degrees QTcB Int : 457 ms Normal sinus rhythm with sinus arrhythmia Minimal voltage criteria for LVH, may be normal variant ( R in aVL ) T wave abnormality, consider inferior ischemia Abnormal ECG Confirmed by MISHEL VILLEGAS, BARRETT ([id number]), acquisitions editor AMY ANTHONY ([id number]) on 04/25/2025 6:27:28 AM Referred By: Confirmed By: BARRETT FLORENTINO MD
--- NOTE | 2025-04-21 14:03 | ED.VIS.GI ---
HPI <RONALDO Palencia - Last Filed: 04/21/25 16:23> HPI - GI History of Present Illness Chief Complaint: Abd Pain Narrative Narrative: 64-year-old female with past medical history of HTN, HLD, DM2, CAD, colitis presents with epigastric and left upper quadrant abdominal pain with nausea and vomiting that started last night. She states she has had the symptoms before but cannot tell me what they were. She said has been some months since she has had the symptoms. She has not had a bowel movement 2 to 3 days which is typical for her. No urinary symptoms. She denies chest pain or shortness of breath. She states she had a colonoscopy before which showed benign polyps. She does not recall which GI doctor she saw. [facility] <RONALDO Palencia - Last Filed: 04/21/25 16:23> [facility] Medical History Colitis History of COVID-19 Neuropathy Former tobacco use Hypertension Hyperlipidemia Diabetes mellitus, type II Obesity (BMI 30-39.9) Hypothyroidism Home Medications ?Medication ?Instructions ?Recorded ?Last Taken ?Type levothyroxine 112 mcg tablet 137 mcg PO DAILY thyroid 12/07/15 Unknown History metformin 850 mg tablet 850 mg PO BIDCM diabetes 12/07/15 Unknown History fluoxetine 20 mg capsule 20 mg PO DAILY mood 07/15/18 Unknown History simvastatin 20 mg tablet 20 mg PO DAILY cholesterol 07/15/18 Unknown History gabapentin 300 mg capsule 300 mg PO TID nerves/pain 06/24/24 Unknown History metoprolol succinate 25 mg 12.5 mg PO DAILY heart 06/24/24 Unknown History tablet,extended release 24 hr trazodone 50 mg tablet 100 mg PO QHS PRN sleep 06/24/24 Unknown History ciprofloxacin HCl 500 mg tablet 500 mg PO Q12H #10 tabs 06/26/24 Unknown Rx metronidazole 500 mg tablet 500 mg PO Q8H #15 tabs 06/26/24 Unknown Rx oxycodone 5 mg tablet 5 mg PO Q6H PRN pain 3 days #12 06/26/24 Unknown Rx tabs ondansetron 4 mg disintegrating 4 mg PO Q8H PRN PRN Nausea #10 tabs 06/30/24 Unknown Rx tablet oxycodone 5 mg tablet 5 mg PO Q6H PRN pain 5 days #20 06/30/24 Unknown Rx tabs diazepam 5 mg tablet 5 mg PO Q8 PRN Muscle Spasm #9 tabs 08/05/24 Unknown Rx oxycodone-acetaminophen 5 mg-325 1 tab PO Q6H PRN PRN Pain 3 days 08/05/24 Unknown Rx mg tablet #12 TABLETS ibuprofen 600 mg tablet 600 mg PO Q6H PRN PRN pain #20 09/14/24 Unknown Rx TABLETS ondansetron 4 mg disintegrating 4 mg PO Q6H PRN nausea and 04/21/25 Unknown Rx tablet vomiting #12 tabs pantoprazole 40 mg tablet,delayed 40 mg PO DAILY 30 days #30 tabs 04/21/25 Unknown Rx release Allergy/AdvReac Type Severity Reaction Status Date / Time etodolac (From [facility]) Allergy li me Verified 04/21/25 13:41 up Penicillins Allergy Itching Verified 04/21/25 13:41 tramadol Allergy Rash Verified 04/21/25 13:41 Family History Sister CAD (coronary artery disease) Heart disease Hypertension Mother Heart disease Hypertension CAD (coronary artery disease) Father Heart disease Hypertension CAD (coronary artery disease) Surgical History S/P appendectomy Social History household members: none Smoking Status: Former smoker how long ago did patient quit smoking: Quit ~ 20 years prior 2003, smoked < 1 ppd since teen until quit. alcohol intake: current alcohol intake frequency: holidays/special occasions only substance use type: does not use ROS <RONALDO Palencia - Last Filed: 04/21/25 16:23> ROS ED ROS Narrative Constitutional: Negative for fever, chills, malaise. CVS: Negative for chest pain, syncope. Respiratory: Negative for shortness of breath, cough. GI: Positive for abdominal pain, nausea, vomiting. Negative for diarrhea, constipation, melena, hematochezia. : Negative for dysuria, hematuria or frequency. EXAM <RONALDO Palencia - Last Filed: 04/21/25 16:23> Physical Exam Narrative Exam Narrative: CONST: Patient sitting in no acute distress. EYES: Normal inspection. NECK: Normal inspection. RESP: No respiratory distress, CTAB. CVS: Regular rate and rhythm, no murmur, no gallop. ABD: Soft with left upper quadrant and epigastric tenderness, no guarding or rebound, nondistended, no hepatosplenomegaly. Back: Normal inspection, no CVA tenderness. SKIN: Color normal, no rash, warm, dry, intact. EXTREMITIES: Normal appearance, no pedal edema. NEURO: Alert and answering questions appropriately. PSYCH: Normal affect. Const Vital Signs: 04/21/25 13:38 04/21/25 15:37 Temperature 97.4 F L Temperature Source Oral Pulse Rate 79 73 Respiratory Rate 18 14 Blood Pressure 139/83 H 146/72 H Blood Pressure Mean 101 96 Pulse Ox 100 100 Oxygen Delivery Method Room Air Room Air <Dr. Kishore Toibas MD - Last Filed: 04/21/25 15:13> Physical Exam Const Vital Signs: 04/21/25 13:38 04/21/25 15:37 Temperature 97.4 F L Temperature Source Oral Pulse Rate 79 73 Respiratory Rate 18 14 Blood Pressure 139/83 H 146/72 H Blood Pressure Mean 101 96 Pulse Ox 100 100 Oxygen Delivery Method Room Air Room Air MDM <RONALDO Palencia - Last Filed: 04/21/25 16:23> [facility] Narrative Medical decision making narrative: 65-year-old female presents with left upper quadrant and epigastric pain with nausea and vomiting that started last night. She appears well and nontoxic. Vital stable. Normal cardiopulmonary exam. Abdomen soft with epigastric and left upper quadrant tenderness without peritoneal signs. No hepatosplenomegaly. Differential includes but not limited to GERD/PUD, colitis, diverticulitis, ACS. CBC, CMP, lipase are all unremarkable. EKG is normal sinus rhythm and with T wave inversion is 2, 3, aVF. Prior EKG from 06/30/2024 shows T wave inversions in lead III and flattening in 2 and aVF but it is more pronounced in today's EKG. However, she has no chest pain and troponin is 6 and she has had continuous pain for over 12 hours so this rules out ACS. CT of the abdomen/pelvis shows no acute process. After IV fluids, morphine, Zofran, and Pepcid she is feeling better. She is tolerating p.o. intake. With negative workup I suspect this could be GERD/gastritis. She is not currently on any medications for this so I prescribed pantoprazole and Zofran and discussed dietary changes. Prior records show she has seen Dr. Medel and had a colonoscopy on 06/25/2024 showing a polyp and ischemic colitis. Currently she is not having any hemoptysis or black or bloody stools and has no signs of colitis on her scans so I feel she can follow-up outpatient. Return precautions discussed and she was discharged in stable condition. I have personally performed a face to face assessment of the patient and have reviewed the JOHNY Note. I performed a substantive portion of the visit including all aspects of the following. My post findings include: History is 65-year-old female history of hypertension, diabetes and colitis. Complaining of epigastric left upper quad abdominal pain since last night. Had episodes like this before. Does not know the specific cause. Denies prior abdominal surgery except for an appendectomy 40 years ago. Denies any recent dysuria. No melena. No hematemesis. No fever. Was told today in the urgent care she might of had a 12 pound weight loss from her last weight. Exam is [well-appearing 65-year-old female. Vital signs are stable afebrile. She does not look septic toxic any distress. Currently no family present. H EENT exam pupils round reactive light. Mytrex membranes. No trauma. Neck nontender no lymphadenopathy. Lungs clear to auscultation bilaterally. Heart regular rhythm rate about 75 no murmur. Chest wall ribs nontender. Abdomen soft, nondistended normal bowel sounds without peritoneal signs. Both right upper right lower quadrant unremarkable. No hernia or mass. No obstruction. No pulsatile mass. She does have reproducible tenderness in the epigastric left upper quadrant. Primarily in the epigastric region. Moving all 4 extremities. Nontender no edema. Normal strength. Back nontender. Neurologically she is awake alert. Answer questions following commands.] Medical Decision Making [65-year-old female with epigastric abdominal pain may be gastritis possible pancreatitis less likely but possible gallbladder disease versus other etiologies. CAT scan labs are being obtained. She was given morphine for pain and Zofran for nausea.] Other additions or changes: [None] Lab Data Labs: Laboratory Results - last 24 hr 04/21/25 14:15 WBC 6.2 RBC 4.31 Hgb 13.0 Hct 38.6 MCV 89.6 MCH 30.2 MCHC 33.7 RDW Std Deviation 41.8 RDW Coeff of Mechelle 12.8 Plt Count 342 MPV 8.7 Immature Gran % (Auto) 0.300 Neut % (Auto) 40.0 L Lymph % (Auto) 49.2 H Karnes % (Auto) 8.4 Eos % (Auto) 1.8 Baso % (Auto) 0.3 Absolute Neuts (auto) 2.5 Absolute Lymphs (auto) 3.05 Nucleated RBC % 0 Sodium 138 Potassium 3.5 Chloride 101 Carbon Dioxide 21.0 Anion Gap 16 H BUN 8 Creatinine 1.07 Estim Creat Clear Calc 52.51 Est GFR (MDRD) Non-Af 58 L BUN/Creatinine Ratio 7.6 L Glucose 89 Calcium 9.7 Total Bilirubin 0.53 AST 27 ALT 16 Alkaline Phosphatase 60 Troponin T High Sens 6 Total Protein 7.7 Albumin 4.2 Globulin 3.5 Albumin/Globulin Ratio 1.2 Lipase 31 Radiography Diagnostic Testing: Clinical Impression(s) from Imaging Studies Abdomen/Pelvis CT 04/21/25 14:07 IMPRESSION: No acute intra-abdominal process. Reading Location: [id number] <Dr. Kishore Tobias MD - Last Filed: 04/21/25 15:13> [facility] Narrative Medical decision making narrative: I have personally performed a face to face assessment of the patient and have reviewed the JOHNY Note. I performed a substantive portion of the visit including all aspects of the following. My post findings include: History is 65-year-old female history of hypertension, diabetes and colitis. Complaining of epigastric left upper quad abdominal pain since last night. Had episodes like this before. Does not know the specific cause. Denies prior abdominal surgery except for an appendectomy 40 years ago. Denies any recent dysuria. No melena. No hematemesis. No fever. Was told today in the urgent care she might of had a 12 pound weight loss from her last weight. Exam is [well-appearing 65-year-old female. Vital signs are stable afebrile. She does not look septic toxic any distress. Currently no family present. H EENT exam pupils round reactive light. Mytrex membranes. No trauma. Neck nontender no lymphadenopathy. Lungs clear to auscultation bilaterally. Heart regular rhythm rate about 75 no murmur. Chest wall ribs nontender. Abdomen soft, nondistended normal bowel sounds without peritoneal signs. Both right upper right lower quadrant unremarkable. No hernia or mass. No obstruction. No pulsatile mass. She does have reproducible tenderness in the epigastric left upper quadrant. Primarily in the epigastric region. Moving all 4 extremities. Nontender no edema. Normal strength. Back nontender. Neurologically she is awake alert. Answer questions following commands.] Medical Decision Making [65-year-old female with epigastric abdominal pain may be gastritis possible pancreatitis less likely but possible gallbladder disease versus other etiologies. CAT scan labs are being obtained. She was given morphine for pain and Zofran for nausea.] Other additions or changes: [None] History & Record Review Discussion w/independent historian: Patient Additional record(s) reviewed:: Prior inpatient record, Prior outpatient record, Prior ED visit and Prior labs Lab Data Attestation: I reviewed the patient's lab results. Lab results narrative: CBC shows a white count of 6 H&H 13 and 38. Platelets 342. Electrolytes show sodium 138. Gap 16. BUN and creatinine of 8 and 1. Glucose is 89. Liver enzymes are normal. Lipase is normal at 31. EKG shows a sinus rhythm with inverted T waves inferiorly. Labs: Laboratory Results - last 24 hr 04/21/25 14:15 WBC 6.2 RBC 4.31 Hgb 13.0 Hct 38.6 MCV 89.6 MCH 30.2 MCHC 33.7 RDW Std Deviation 41.8 RDW Coeff of Mechelle 12.8 Plt Count 342 MPV 8.7 Immature Gran % (Auto) 0.300 Neut % (Auto) 40.0 L Lymph % (Auto) 49.2 H Karnes % (Auto) 8.4 Eos % (Auto) 1.8 Baso % (Auto) 0.3 Absolute Neuts (auto) 2.5 Absolute Lymphs (auto) 3.05 Nucleated RBC % 0 Sodium 138 Potassium 3.5 Chloride 101 Carbon Dioxide 21.0 Anion Gap 16 H BUN 8 Creatinine 1.07 Estim Creat Clear Calc 52.51 Est GFR (MDRD) Non-Af 58 L BUN/Creatinine Ratio 7.6 L Glucose 89 Calcium 9.7 Total Bilirubin 0.53 AST 27 ALT 16 Alkaline Phosphatase 60 Troponin T High Sens 6 Total Protein 7.7 Albumin 4.2 Globulin 3.5 Albumin/Globulin Ratio 1.2 Lipase 31 Radiography Diagnostic Testing: Clinical Impression(s) from Imaging Studies Abdomen/Pelvis CT 04/21/25 14:07 IMPRESSION: No acute intra-abdominal process. Reading Location: [facility] Discharge Plan Triage Chief Complaint: Abd Pain ED Midlevel Provider: Lizeth Ag ED Provider: Kishore Tobias Dx/Rx/DC Orders Clinical Impression: Acute epigastric pain, Nausea and vomiting Instructions: ED Epigastric Pain Uncertain Cause Prescriptions: New ondansetron 4 mg tablet,disintegrating 4 mg PO Q6H PRN (Reason: nausea and vomiting) Qty: 12 0RF pantoprazole 40 mg tablet,delayed release (DR/EC) 40 mg PO DAILY 30 Days Qty: 30 0RF No Action metformin 850 MG tablet 850 mg PO BIDCM levothyroxine 112 MCG tablet 137 mcg PO DAILY simvastatin 20 tablet 20 mg PO DAILY Patient Comments: fluoxetine 20 MG capsule 20 mg PO DAILY oxycodone 5 mg tablet 5 mg PO Q6H PRN (Reason: pain) 5 Days Qty: 20 0RF ondansetron 4 mg tablet,disintegrating 4 mg PO Q8H PRN PRN (Reason: Nausea) Qty: 10 0RF trazodone 50 mg tablet 100 mg PO QHS PRN metoprolol succinate 25 mg tablet extended release 24 hr 12.5 mg PO DAILY gabapentin 300 mg capsule 300 mg PO TID ciprofloxacin HCl 500 mg tablet 500 mg PO Q12H Qty: 10 0RF metronidazole 500 mg tablet 500 mg PO Q8H Qty: 15 0RF oxycodone 5 mg tablet 5 mg PO Q6H PRN (Reason: pain) 3 Days Qty: 12 0RF oxycodone-acetaminophen 5-325 mg tablet 1 tab PO Q6H PRN PRN (Reason: Pain) 3 Days Qty: 12 0RF diazepam 5 mg tablet 5 mg PO Q8 PRN (Reason: Muscle Spasm) Qty: 9 0RF ibuprofen 600 mg tablet 600 mg PO Q6H PRN PRN (Reason: pain) Qty: 20 0RF Primary Care Provider: Christian Bowles Referrals: Christian Bowles DO [Primary Care Provider] - Friend,DO Cheikh [Med Staff - Active Staff] - Activity Restrictions/Additional Instructions: Your blood work and CT scan are normal. Your pain could be from gastroesophageal reflux or gastritis which is irritation of the lining of the stomach. I prescribed pantoprazole which decreases the amount of stomach acid and Zofran to take as needed for nausea and vomiting. You can also take Tylenol as needed for pain. Avoid citrus or spicy foods. Follow-up with your GI doctor. Print Language: Setswana Disposition Disposition: Home, Self Care
--- NOTE | 2025-04-21 14:07 | CT_ITS ---
PROCEDURE: ABDOMEN/PELVIS W IV CONT ONLY 04/21/2025 REASON FOR EXAM: EPIGASTRIC AND LUQ PAIN TECHNIQUE: Abdomen and pelvis CT with intravenous contrast. Coronal and Sagittal reconstruction series were provided. PATIENT PREPARATION: Per protocol ORAL CONTRAST TYPE: None. AMOUNT: mL CONTRAST: 100 mL of Isovue 370 One or more dose reduction techniques were used (e.g., Automated exposure control, adjustment of the mA and/or kV according to patient size, use of iterative reconstruction technique. RADIATION DOSE SUMMARY: DLP: 852 mGycm COMPARISON: 06/30/2024 FINDINGS: Limited sections of the lung bases demonstrate no focal pulmonary mass. The liver, spleen, pancreas, both kidneys, and both adrenal glands demonstrate no acute findings. Hepatomegaly to 15.9 cm. The gallbladder is unremarkable. The stomach is unremarkable. The aorta and IVC demonstrate no acute findings. Mild atherosclerosis of the abdominal vasculature. There is no free air, free fluid or intestinal obstruction. The small bowel loops are not dilated. The appendix is not clearly identified, although there are no secondary signs of appendicitis. No bowel obstruction. The pelvic structures are intact. There is no solid pelvic mass. The urinary bladder is unremarkable Visualized osseous structures demonstrate no acute abnormality. Mild left inguinal fat containing hernia. CT/Abdomen/Pelvis W IV Cont ONLY IMPRESSION: No acute intra-abdominal process. Reading Location: [id number]
[2025-04-21] MEDS: Ondansetron 4 MG/2 ML Vial IV (14:15)
[2025-04-21] MEDS: 0.9% Normal Saline (1000mL) 1,000 ML 999 ML IV (14:16)
[2025-04-21] MEDS: Morphine 4 MG/ML Syringe IV (14:17)
[2025-04-21 14:26] LABS: Absolute Lymphocyte Count 3.05 X10^3/uL (0.83-4.51); Absolute Neutrophil Count 2.5 X10^3/uL (2.0-7.7); Basophil# 0.02 X10^3/uL; Basophil% 0.3 % (0-1); Eosinophil# 0.11 X10^3/uL; Eosinophils% 1.8 % (0-5); Hematocrit 38.6 % (37-47); Lymphocyte # 3.05 X10^3/ul (0.83-4.51); Lymphocyte % 49.2 % (19-41); Mean Corp Hgb Conc 33.7 g/dL (32-36); Mean Corpuscular Hgb 30.2 pg (27.0-32.0); Mean Corpuscular Volume 89.6 fL (81-99); Mean Platelet Vol. 8.7 fl (6.2-12.0); Monocyte# 0.52 X10^3/uL; Monocyte% 8.4 % (0-10); NRBC Flagged by Analyzer 0 % (0-5); Neutrophil # 2.48 X10^3/uL (2.7-7.7); Platelet Count 342 K/mm3 (150-450); RBC Distribution Width CV 12.8 % (11.6-14.6); RBC Distribution Width SD 41.8 fl (35.1-43.9); Red Blood Count 4.31 M/mm3 (4.2-5.4); White Blood Count 6.2 K/mm3 (4.4-11.0)
[2025-04-21 14:49] LABS: ALB/GLOB Ratio 1.2 RATIO (0.9-2.4); AST(SGOT) 27 U/L (<=31); Alanine Aminotransfer ALT/SGPT 16 U/L (<=34); Albumin, Serum 4.2 g/dL (3.4-4.8); Alkaline Phosphatase 60 U/L (35-104); Anion Gap 16 (5-15); BUN 8 mg/dL (4-19); BUN/Creat Ratio 7.6 RATIO (10-20); Calcium,Total 9.7 mg/dL (7.6-11.0); Chloride 101 mmol/L (98-108); Creatinine, Serum 1.07 mg/dL (0.70-1.20); EST Glomerular Filtration Rate 58 (>60); Estimated Creatinine Clearance 52.51 ml/min (50-250); Globulin 3.5 g/dL (2.2-4.2); Glucose 89 mg/dL (70-99); Lipase 31 U/L (13-75); Potassium 3.5 mmol/L (3.3-5.1); Protein, Total 7.7 g/dL (5.9-8.4); Sodium Level 138 mmol/L (133-145); Total Bilirubin 0.53 mg/dL (0.00-1.30)
[2025-04-21] MEDS: Famotidine 200 MG/20 ML MDV 20 MG in 0.9% Normal Saline (Pres. free 8 ML 300 MG IV (15:05)
[2025-04-21 15:16] LABS: Troponin T High Sensitivity 6 ng/L (<=14)
[2025-04-21 15:37] VITALS: BP 146/72; PULSE 73; RESP 14; O2SAT 100
[2025-04-21 16:33] VITALS: BP 135/72; PULSE 71; RESP 14; TEMP 36.6; O2SAT 99
== END 2025-04-21 16:35 | disposition home or self-care (01) ==
PROVIDERS: Physician Assistant; Emergency Provider Emergency Medicine; PCP Student in an Organized Health Care Education/Training Program; Visit Provider Emergency Medicine
DX: R10.13 Epigastric pain (principal); E11.9 Type 2 diabetes mellitus without complications; R11.2 Nausea with vomiting, unspecified; I25.10 Atherosclerotic heart disease of native coronary artery without angina pectoris; Z87.891 Personal history of nicotine dependence; Z86.16 Personal history of COVID-19
CPT/HCPCS: 74177; 80053; 83690; 84484; 85025; 93005; 96365; 96366; 96375; 96376; 99284; Q9967; A4216; J2405